=== PATIENT | male | born 1960 | race Caucasian/White ===

== ENCOUNTER 2022-08-25 14:27 | Inpatient (IN) ==
[2022-08-25 14:48] LABS: POC Calcium, Ionized 1.01 (1.16-1.32); POC Creatinine 1.5 (0.6-1.2); POC Potassium 4.8 (3.3-5.1)
[2022-08-25] MEDS ORDERED: 0.9 % SODIUM CHLORIDE 1,000 ML IV ONE (14:54)
[2022-08-25] MEDS ORDERED: LACTATED RINGERS 1,000 ML IV ONE (14:55)
[2022-08-25] MEDS ORDERED: morphine 4 MG/ML VIAL IV ONE (14:59)
[2022-08-25] MEDS ORDERED: INSULIN REGULAR IV SCH (15:00)
[2022-08-25] MEDS ORDERED: HUMAN IV SCH (15:00)
[2022-08-25] MEDS ORDERED: SODIUM CHLORIDE 0.9% IV SCH (15:00)
[2022-08-25] MEDS ORDERED: NACL 0.9% W/KCL 20MEQ 1,000 ML IV SCH (15:00)
[2022-08-25 15:09] LABS: Basophils # (Auto) 0.02 K/mcL (0.00-0.30); Basophils % (Auto) 0.1 % (0.0-2.0); Eosinophils # (Auto) 0 K/mcL (0.00-0.70); Eosinophils % (Auto) 0 % (0.0-7.0); Hematocrit 26.1 % (40.1-51.0); Hemoglobin 8.4 g/dL (13.7-17.5); Lymphocytes # (Auto) 0.41 K/mcL (1.50-4.80); Lymphocytes % (Auto) 2.4 % (15.5-49.0); Mean Cell Volume 91.9 fL (80.0-100.0); Mean Corpuscular HGB Conc 32.2 g/dL (31.0-36.0); Mean Platelet Volume 10.5 fL (8.8-12.5); Monocytes # (Auto) 1.25 K/mcL (0.10-0.90); Monocytes % (Auto) 7.4 % (1.0-12.0); Neutrophils % (Auto) 89.7 % (38.0-78.0); Platelet Count 201 K/mcL (140-440); RBC 2.84 M/mcL (4.63-6.08); Red Cell Distribution Width 12.4 % (11.5-14.5); WBC 16.9 K/mcL (4.5-11.0)
[2022-08-25] MEDS ORDERED: INSULIN REGULAR, HUMAN 50 UNIT in 0.9 % SODIUM CHLORIDE 99.5 ML IV SCH (15:15)
[2022-08-25 15:27] LABS: Creatine Kinase 1619 U/L (24-195)
[2022-08-25] MEDS ORDERED: 0.9 % SODIUM CHLORIDE 250 ML IV SCH (15:30)
--- NOTE | 2022-08-25 15:49 | XRay Report ---
CLINICAL INFORMATION: fall mid thigh pain COMPARISON: None. FINDINGS: Severely comminuted intertrochanteric fracture of the left hip appreciated. There is moderate associated coxa vera angulation and moderate displacement of both the lesser and greater trochanteric fragments. Mild degenerative change seen in the left hip. There is severe degenerative change in the left patellofemoral and tibiofemoral joint. Soft tissue swelling over the fracture site. IMPRESSION: Severely comminuted intertrochanteric fracture left hip with coxa or angulation and displacement of greater and lesser trochanteric fragments Severe patellofemoral and tibiofemoral degeneration. Mild left hip degeneration Interpreted and Authenticated by: Elroy Little 08/25/22
[2022-08-25 15:51] LABS: POC INR 1.2 (0.8-1.2); POC Pro Time 14.8 (11.9-14.5)
--- NOTE | 2022-08-25 15:52 | XRay Report ---
CLINICAL INFORMATION: Preop COMPARISON: 07/11/2019 TECHNIQUE: Portable FINDINGS: The heart size, mediastinum and pulmonary vessels are unremarkable. The lungs are clear. There are no effusions. The bones and soft tissues are within normal limits. IMPRESSION: Normal chest. Interpreted and Authenticated by: Elroy Little 08/25/22
--- NOTE | 2022-08-25 15:54 | XRay Report ---
CLINICAL INFORMATION: fall COMPARISON: None. FINDINGS: A spiral subtrochanteric fracture of the proximal right femoral diaphysis appreciated. The distal fragment is displaced approximately one half shaft width in a medial direction and a entire shaft in a posterior direction. There is also 40 degrees anterior angulation of the fracture apex. Moderate degenerative change present in the right hip. There is severe degeneration in the patellofemoral and tibiofemoral joint with mild patella jo-ann. Soft tissue swelling seen at the fracture site. IMPRESSION: Moderately displaced angulated spiral fracture of the subtrochanteric proximal right femoral diaphysis. Moderate right hip degeneration Severe patellofemoral and tibiofemoral degeneration Interpreted and Authenticated by: Elroy Little 08/25/22
--- NOTE | 2022-08-25 15:55 | XRay Report ---
CLINICAL INFORMATION: fall mid thigh pain COMPARISON: Abdomen and pelvic CT 08/03/2010 FINDINGS: A moderately displaced angulated spiral fracture of the subtrochanteric right hip appreciated. There is also also a oblique intertrochanteric comminuted fracture of the left hip displacement of the trochanteric fragments Mild left and [id number] right hip degeneration noted. SI joints are normal. IMPRESSION: Bilateral hip fractures as described Interpreted and Authenticated by: Elroy Little 08/25/22
--- NOTE | 2022-08-25 16:13 | Emergency Department Note ---
HPI General Chief complaint: Blood Sugar Problem Stated complaint: Hi Blood Glucose Time Seen by Provider: 08/25/22 14:30 Source: patient and EMS Mode of arrival: EMS Limitations: no limitations History of Present Illness HPI Narrative: Narrative: Patient presents to the emergency department with elevated blood sugars, multiple falls last night and early this morning. Patient reports that his blood sugars dipped causing him to fall he was on the ground since early this morning approximately 9 AM his parents who live next-door came and found him unable to get up off the ground. Patient is complaining of bilateral leg pain. She does have a history of type 1 diabetes he has a continuous glucose monitor he self administers insulin and does not have an insulin pump. He reports up until yesterday he was in his usual state of health there has been no recent infectious symptoms and he reports that he has been compliant with his insulin. He was unable to give him self insulin this morning secondary to his fall. He denies hitting his head and he does not have a headache he is not on any anticoagulation. Related Data Home Medications Medication Instructions Recorded Confirmed aspirin 81 mg tablet,delayed 81 mg PO QDAY 10/23/18 08/26/22 release (Adult Low Dose Aspirin) blood sugar diagnostic (OneTouch #10 ea 10/23/18 01/04/22 Ultra Blue Test Strip) amlodipine 5 mg tablet 5 mg PO QDAY 08/26/22 08/26/22 benazepril 40 mg tablet 40 mg PO QDAY 08/26/22 08/26/22 hydrochlorothiazide 25 mg tablet 25 mg PO QDAY 08/26/22 08/26/22 pravastatin 80 mg tablet 80 mg PO QHS 08/26/22 08/26/22 Previous Rx's Medication Instructions Recorded blood sugar diagnostic (ReliOn #700 ea 01/16/20 Prime Test Strips) insulin degludec 200 unit/mL (3 See Rx Instructions .Route 02/16/22 mL) subcutaneous pen (Tresiba .COMPLEX #9 mL FlexTouch U-200 insulin) pen needle, diabetic 31 gauge x #100 ea 02/16/2205/13" (BD Ultra-Fine Mini Pen Needle) blood-glucose sensor (Dexcom G6 #3 ea 03/15/22 Sensor device) fluoxetine 40 mg capsule 40 mg PO QAM #90 caps 05/25/22 blood-glucose transmitter (Dexcom #1 ea 06/11/22 G6 Transmitter device) insulin lispro 100 unit/mL 1 sliding scale dose subcut .With 06/11/22 subcutaneous solution (Humalog Each Meal #10 mL U-100 Insulin) Allergies Allergy/AdvReac Type Severity Reaction Status Date / Time No Known Drug Allergies Allergy Verified 08/26/22 07:40 Review of Systems ROS ROS Narrative: Narrative: All systems ED: reviewed and negative except as stated. 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) Encounter for Health Maintenance Examination in Adult (Acute) Diabetic eye exam (Chronic 11/16/18) Preventative health care (Chronic) Hx of colonoscopy (Chronic 01/24/18) Hx of stroke without residual deficits (Chronic) Hepatitis C (Chronic) Situational depression (Chronic) Chronic kidney disease, stage 1 (Chronic) Dyslipidemia (Chronic) Impingement syndrome of right shoulder (Chronic) Tinea unguium (Chronic) Hypoglycemia (Chronic) Dry eye syndrome (Chronic) Cataracts, bilateral (Chronic) Depression (Chronic) Cerebrovascular accident (CVA) (Chronic) Arthritis of right knee (Chronic) Type 1 diabetes mellitus (Chronic) Altered mental status (Chronic) Medical History Altered mental status Arthritis of right knee Cataracts, bilateral Cerebrovascular accident (CVA) Chronic kidney disease, stage 1 Depression Diabetic eye exam (11/16/18) Vision Source- mild nonproliferative diabetic retinopathy without edema Dry eye syndrome Dyslipidemia Encounter for long-term (current) use of insulin Hepatitis C HTN (hypertension) Hx of stroke without residual deficits Hyperlipidemia Hypoglycemia Impingement syndrome of right shoulder Major depression Preventative health care Seizure Situational depression Tinea unguium Type 1 diabetes mellitus Type 2 diabetes mellitus with chronic kidney disease Surgical History History of esophagogastroduodenoscopy (EGD) (07/27/16) Hx of colonoscopy (01/24/18) Dr Whittaker - tubular adenoma , adenomatos polp, repeat 3 years No history of previous surgery Family History Other No pertinent family history Social History Smoking Status: Never smoker Alcohol Intake Frequency: does not drink Substance Use: does not use Exam Narrative Narrative: Narrative: Vital signs noted General: Awake. Pale, appears ill HEENT: NCAT PERRL EOMI. No conjunctivitis. Membranes moist. Neck: Supple, trachea midline Cardiovascular: Tachycardic. No murmur. No rubs. No gallops. Respiratory: Tachypneic Gastrointestinal: Soft. No tenderness Musculoskeletal: Bilateral hip and mid femur pain to palpation Skin: Warm. Dry. No rash Neurologic: Alert and oriented x3 moves all extremities equally and fully, speech is fluent face is symmetric General Limitations: no limitations Course Vital Signs Vital signs: Vital Signs Temperature 98.2 F 08/25/22 14:33 Pulse Rate 117 H 08/25/22 14:33 Respiratory Rate 18 08/25/22 14:33 Blood Pressure 143/82 08/25/22 14:33 Pulse Oximetry (%) 100 08/25/22 14:33 Oxygen Delivery Method Room Air 08/25/22 14:33 Temperature 97.2 F 08/26/22 04:01 Pulse Rate 100 H 08/26/22 04:01 Respiratory Rate 15 08/26/22 04:01 Blood Pressure 134/65 08/26/22 04:01 Pulse Oximetry (%) 99 08/26/22 04:01 Oxygen Delivery Method Room Air 08/26/22 04:01 [facility] Narrative Medical decision making narrative: Narrative: Patient presents to the emergency department with hip pain, high blood glucose after a fall. Sounds like patient's falls were due to hypoglycemia and then he had been on the ground unable to get up. Patient does have a deformity in the mid thigh x-ray reveals bilateral hip fractures that are comminuted. Patient also found to have blood glucose in the 600s with a bicarb of 15 and anion gap of 25. Patient's venous blood gas shows a pH is 7.32 his lactate is 10. Patient's white blood cell count was 16.9, his hemoglobin is 8.4 it looks like his baseline is anywhere from 13-14. Patient was ordered 2 L of fluids he started on insulin drip at 0.1 units/kg/h he started on maintenance fluids with potassium, he is ordered 2 units of red blood cells. I did speak with Dr. Rodriguez who has agreed to consult on the patient. Patient is admitted to the hospitalist service he will need medical attention before he is cleared for the operating room. Lab Data 08/26/22 05:27 08/26/22 05:27 Labs: Lab Results 08/25/22 08/25/22 08/25/22 Range/Units 14:40 14:40 14:40 WBC 16.9 H (4.5-11.0) K/mcL RBC 2.84 L (4.63-6.08) M/mcL Hgb 8.4 L (13.7-17.5) g/dL Hct 26.1 L (40.1-51.0) % POC Hct (41-55) MCV 91.9 (80.0-100.0) fL MCH 29.6 (26.0-34.0) pg MCHC 32.2 (31.0-36.0) g/dL RDW 12.4 (11.5-14.5) % Plt Count 201 (140-440) K/mcL MPV 10.5 (8.8-12.5) fL Immature Gran % (Auto) 0.4 (0.0-0.5) % Neut % (Auto) 89.7 H (38.0-78.0) % Lymph % (Auto) 2.4 L (15.5-49.0) % [place] % (Auto) 7.4 (1.0-12.0) % Eos % (Auto) 0 (0.0-7.0) % Baso % (Auto) 0.1 (0.0-2.0) % Lymph # (Auto) 0.41 L (1.50-4.80) K/mcL [place] # (Auto) 1.25 H (0.10-0.90) K/mcL Eos # (Auto) 0 (0.00-0.70) K/mcL Baso # (Auto) 0.02 (0.00-0.30) K/mcL Seg Neutrophils % (38-78) % Band Neutrophils % (0-10) % Lymphocytes % (15-49) % Monocytes % (Manual) (1-12) % Immature Gran # 0.07 H (0.00-0.05) K/mcl Absolute Neutrophils 15.16 H (1.80-8.00) K/mcL Platelet Estimate (Normal) RBC Morphology (Normal) POC PT (11.9-14.5) POC INR (0.8-1.2) POC VBG pH (7.32-7.42) POC VBG pCO2 at Temp (41-51) POC VBG pO2 (25-40) POC VBG HCO3 (24-28) POC VBG Total CO2 (25-29) POC Venous O2 Sat (40-70) POC VBG Base Excess (-2-2) VBG Lactic Acid (0.5-2) POC Sodium (133-145) Sodium (133-145) mmol/L POC Potassium (3.3-5.1) Potassium (3.3-5.1) mmol/L POC Chloride (96-108) Chloride (96-108) mmol/L Carbon Dioxide (22-30) mmol/L POC Total CO2 (22-30) Anion Gap (8.0-16.0) POC Anion Gap (8.0-16.0) POC BUN (6-20) BUN (8-23) mg/dL Creatinine (0.7-1.2) mg/dL POC Creatinine (0.6-1.2) GFR Calculation Glucose (70-105) mg/dL POC Glucose (70-105) Uric Acid (2.5-8.0) mg/dL Calcium (8.6-10.4) mg/dL POC WB Ioniz Calcium (1.16-1.32) Phosphorus (2.5-4.5) mg/dL Magnesium 1.7 (1.6-2.5) mg/dL Total Bilirubin (0.1-1.0) mg/dL Direct Bilirubin (<0.3) mg/dL GGT (8-61) U/L AST (<40) U/L ALT (<40) U/L Alkaline Phosphatase 51 (39-117) U/L Lactate Dehydrogenase (135-225) U/L Total Creatine Kinase 1619 H (24-195) U/L Total Protein (5.9-8.4) gm/dL Albumin (3.2-5.2) gm/dL Globulin (2.2-3.7) gm/dL Albumin/Globulin Ratio (1.0-2.3) Triglycerides (<150) mg/dL Beta-Hydroxybutyrate 0.60 H (<0.27) mmol/L Urine Color Urine Appearance (Clear) Urine pH (5.0-9.0) Ur Specific [place] (1.000-1.035) Urine Protein (Negative) mg/dL Urine Glucose (UA) (Negative) mg/dL Urine Ketones (Negative) mg/dL Urine Occult Blood (Negative) mg/dL Urine Nitrate (Negative) Urine Bilirubin (Negative) mg/dL Urine Urobilinogen mg/dL Ur Leukocyte Esterase (Negative) /uL Urine RBC (0-3) /hpf Urine WBC (0-4) /hpf Ur Squamous Epith Cells (0-4) /hpf Urine Bacteria (0) /hpf Hyaline Casts (0-2) /lph Urine Mucus (None) /hpf Ur Culture Indicated? 08/25/22 08/25/22 08/25/22 Range/Units 14:40 14:44 14:44 WBC (4.5-11.0) K/mcL RBC (4.63-6.08) M/mcL Hgb (13.7-17.5) g/dL Hct (40.1-51.0) % POC Hct 26.0 L (41-55) MCV (80.0-100.0) fL MCH (26.0-34.0) pg MCHC (31.0-36.0) g/dL RDW (11.5-14.5) % Plt Count (140-440) K/mcL MPV (8.8-12.5) fL Immature Gran % (Auto) (0.0-0.5) % Neut % (Auto) (38.0-78.0) % Lymph % (Auto) (15.5-49.0) % [place] % (Auto) (1.0-12.0) % Eos % (Auto) (0.0-7.0) % Baso % (Auto) (0.0-2.0) % Lymph # (Auto) (1.50-4.80) K/mcL [place] # (Auto) (0.10-0.90) K/mcL Eos # (Auto) (0.00-0.70) K/mcL Baso # (Auto) (0.00-0.30) K/mcL Seg Neutrophils % 84 H (38-78) % Band Neutrophils % 8 (0-10) % Lymphocytes % 4 L (15-49) % Monocytes % (Manual) 4 (1-12) % Immature Gran # (0.00-0.05) K/mcl Absolute Neutrophils (1.80-8.00) K/mcL Platelet Estimate Normal (Normal) RBC Morphology Normal (Normal) POC PT (11.9-14.5) POC INR (0.8-1.2) POC VBG pH 7.32 (7.32-7.42) POC VBG pCO2 at Temp 28.7 L (41-51) POC VBG pO2 23 L (25-40) POC VBG HCO3 14.7 L (24-28) POC VBG Total CO2 16.0 L (25-29) POC Venous O2 Sat 36.0 L (40-70) POC VBG Base Excess -11.0 L (-2-2) VBG Lactic Acid 10.8 H* (0.5-2) POC Sodium 127 L (133-145) Sodium (133-145) mmol/L POC Potassium 4.8 (3.3-5.1) Potassium (3.3-5.1) mmol/L POC Chloride 93 L (96-108) Chloride (96-108) mmol/L Carbon Dioxide (22-30) mmol/L POC Total CO2 15.0 L (22-30) Anion Gap (8.0-16.0) POC Anion Gap 25.0 H (8.0-16.0) POC BUN 22 H (6-20) BUN (8-23) mg/dL Creatinine (0.7-1.2) mg/dL POC Creatinine 1.5 H (0.6-1.2) GFR Calculation Glucose (70-105) mg/dL POC Glucose 623 H* (70-105) Uric Acid (2.5-8.0) mg/dL Calcium (8.6-10.4) mg/dL POC WB Ioniz Calcium 1.01 L (1.16-1.32) Phosphorus (2.5-4.5) mg/dL Magnesium (1.6-2.5) mg/dL Total Bilirubin (0.1-1.0) mg/dL Direct Bilirubin (<0.3) mg/dL GGT (8-61) U/L AST (<40) U/L ALT (<40) U/L Alkaline Phosphatase (39-117) U/L Lactate Dehydrogenase (135-225) U/L Total Creatine Kinase (24-195) U/L Total Protein (5.9-8.4) gm/dL Albumin (3.2-5.2) gm/dL Globulin (2.2-3.7) gm/dL Albumin/Globulin Ratio (1.0-2.3) Triglycerides (<150) mg/dL Beta-Hydroxybutyrate (<0.27) mmol/L Urine Color Urine Appearance (Clear) Urine pH (5.0-9.0) Ur Specific [place] (1.000-1.035) Urine Protein (Negative) mg/dL Urine Glucose (UA) (Negative) mg/dL Urine Ketones (Negative) mg/dL Urine Occult Blood (Negative) mg/dL Urine Nitrate (Negative) Urine Bilirubin (Negative) mg/dL Urine Urobilinogen mg/dL Ur Leukocyte Esterase (Negative) /uL Urine RBC (0-3) /hpf Urine WBC (0-4) /hpf Ur Squamous Epith Cells (0-4) /hpf Urine Bacteria (0) /hpf Hyaline Casts (0-2) /lph Urine Mucus (None) /hpf Ur Culture Indicated? 08/25/22 08/25/22 08/25/22 Range/Units 15:49 16:30 16:33 WBC (4.5-11.0) K/mcL RBC (4.63-6.08) M/mcL Hgb (13.7-17.5) g/dL Hct (40.1-51.0) % POC Hct (41-55) MCV (80.0-100.0) fL MCH (26.0-34.0) pg MCHC (31.0-36.0) g/dL RDW (11.5-14.5) % Plt Count (140-440) K/mcL MPV (8.8-12.5) fL Immature Gran % (Auto) (0.0-0.5) % Neut % (Auto) (38.0-78.0) % Lymph % (Auto) (15.5-49.0) % [place] % (Auto) (1.0-12.0) % Eos % (Auto) (0.0-7.0) % Baso % (Auto) (0.0-2.0) % Lymph # (Auto) (1.50-4.80) K/mcL [place] # (Auto) (0.10-0.90) K/mcL Eos # (Auto) (0.00-0.70) K/mcL Baso # (Auto) (0.00-0.30) K/mcL Seg Neutrophils % (38-78) % Band Neutrophils % (0-10) % Lymphocytes % (15-49) % Monocytes % (Manual) (1-12) % Immature Gran # (0.00-0.05) K/mcl Absolute Neutrophils (1.80-8.00) K/mcL Platelet Estimate (Normal) RBC Morphology (Normal) POC PT 14.8 H (11.9-14.5) POC INR 1.2 (0.8-1.2) POC VBG pH 7.35 (7.32-7.42) POC VBG pCO2 at Temp 31.3 L (41-51) POC VBG pO2 28 (25-40) POC VBG HCO3 17.4 L (24-28) POC VBG Total CO2 18.0 L (25-29) POC Venous O2 Sat 50.0 (40-70) POC VBG Base Excess -8.0 L (-2-2) VBG Lactic Acid 7.4 H* (0.5-2) POC Sodium (133-145) Sodium 126 L (133-145) mmol/L POC Potassium (3.3-5.1) Potassium 4.1 (3.3-5.1) mmol/L POC Chloride (96-108) Chloride 93 L (96-108) mmol/L Carbon Dioxide 18 L (22-30) mmol/L POC Total CO2 (22-30) Anion Gap 15.0 (8.0-16.0) POC Anion Gap (8.0-16.0) POC BUN (6-20) BUN 24 H (8-23) mg/dL Creatinine 1.4 H (0.7-1.2) mg/dL POC Creatinine (0.6-1.2) GFR Calculation 53 Glucose 519 H* (70-105) mg/dL POC Glucose (70-105) Uric Acid 6.7 (2.5-8.0) mg/dL Calcium 7.7 L (8.6-10.4) mg/dL POC WB Ioniz Calcium (1.16-1.32) Phosphorus 2.1 L (2.5-4.5) mg/dL Magnesium 1.6 (1.6-2.5) mg/dL Total Bilirubin 0.8 (0.1-1.0) mg/dL Direct Bilirubin 0.2 (<0.3) mg/dL GGT 8 (8-61) U/L AST 45 H (<40) U/L ALT 19 (<40) U/L Alkaline Phosphatase 50 (39-117) U/L Lactate Dehydrogenase 243 H (135-225) U/L Total Creatine Kinase (24-195) U/L Total Protein 5.3 L (5.9-8.4) gm/dL Albumin 3.0 L (3.2-5.2) gm/dL Globulin 2.3 (2.2-3.7) gm/dL Albumin/Globulin Ratio 1.3 (1.0-2.3) Triglycerides 60 (<150) mg/dL Beta-Hydroxybutyrate (<0.27) mmol/L Urine Color Urine Appearance (Clear) Urine pH (5.0-9.0) Ur Specific [place] (1.000-1.035) Urine Protein (Negative) mg/dL Urine Glucose (UA) (Negative) mg/dL Urine Ketones (Negative) mg/dL Urine Occult Blood (Negative) mg/dL Urine Nitrate (Negative) Urine Bilirubin (Negative) mg/dL Urine Urobilinogen mg/dL Ur Leukocyte Esterase (Negative) /uL Urine RBC (0-3) /hpf Urine WBC (0-4) /hpf Ur Squamous Epith Cells (0-4) /hpf Urine Bacteria (0) /hpf Hyaline Casts (0-2) /lph Urine Mucus (None) /hpf Ur Culture Indicated? 08/25/22 Range/Units 18:00 WBC (4.5-11.0) K/mcL RBC (4.63-6.08) M/mcL Hgb (13.7-17.5) g/dL Hct (40.1-51.0) % POC Hct (41-55) MCV (80.0-100.0) fL MCH (26.0-34.0) pg MCHC (31.0-36.0) g/dL RDW (11.5-14.5) % Plt Count (140-440) K/mcL MPV (8.8-12.5) fL Immature Gran % (Auto) (0.0-0.5) % Neut % (Auto) (38.0-78.0) % Lymph % (Auto) (15.5-49.0) % [place] % (Auto) (1.0-12.0) % Eos % (Auto) (0.0-7.0) % Baso % (Auto) (0.0-2.0) % Lymph # (Auto) (1.50-4.80) K/mcL [place] # (Auto) (0.10-0.90) K/mcL Eos # (Auto) (0.00-0.70) K/mcL Baso # (Auto) (0.00-0.30) K/mcL Seg Neutrophils % (38-78) % Band Neutrophils % (0-10) % Lymphocytes % (15-49) % Monocytes % (Manual) (1-12) % Immature Gran # (0.00-0.05) K/mcl Absolute Neutrophils (1.80-8.00) K/mcL Platelet Estimate (Normal) RBC Morphology (Normal) POC PT (11.9-14.5) POC INR (0.8-1.2) POC VBG pH (7.32-7.42) POC VBG pCO2 at Temp (41-51) POC VBG pO2 (25-40) POC VBG HCO3 (24-28) POC VBG Total CO2 (25-29) POC Venous O2 Sat (40-70) POC VBG Base Excess (-2-2) VBG Lactic Acid (0.5-2) POC Sodium (133-145) Sodium (133-145) mmol/L POC Potassium (3.3-5.1) Potassium (3.3-5.1) mmol/L POC Chloride (96-108) Chloride (96-108) mmol/L Carbon Dioxide (22-30) mmol/L POC Total CO2 (22-30) Anion Gap (8.0-16.0) POC Anion Gap (8.0-16.0) POC BUN (6-20) BUN (8-23) mg/dL Creatinine (0.7-1.2) mg/dL POC Creatinine (0.6-1.2) GFR Calculation Glucose (70-105) mg/dL POC Glucose (70-105) Uric Acid (2.5-8.0) mg/dL Calcium (8.6-10.4) mg/dL POC WB Ioniz Calcium (1.16-1.32) Phosphorus (2.5-4.5) mg/dL Magnesium (1.6-2.5) mg/dL Total Bilirubin (0.1-1.0) mg/dL Direct Bilirubin (<0.3) mg/dL GGT (8-61) U/L AST (<40) U/L ALT (<40) U/L Alkaline Phosphatase (39-117) U/L Lactate Dehydrogenase (135-225) U/L Total Creatine Kinase (24-195) U/L Total Protein (5.9-8.4) gm/dL Albumin (3.2-5.2) gm/dL Globulin (2.2-3.7) gm/dL Albumin/Globulin Ratio (1.0-2.3) Triglycerides (<150) mg/dL Beta-Hydroxybutyrate (<0.27) mmol/L Urine Color Yellow Urine Appearance Clear (Clear) Urine pH 5.0 (5.0-9.0) Ur Specific [place] 1.023 (1.000-1.035) Urine Protein Negative (Negative) mg/dL Urine Glucose (UA) >=500 A (Negative) mg/dL Urine Ketones 20 A (Negative) mg/dL Urine Occult Blood 0.20 (Negative) mg/dL Urine Nitrate Negative (Negative) Urine Bilirubin Negative (Negative) mg/dL Urine Urobilinogen Negative mg/dL Ur Leukocyte Esterase Negative (Negative) /uL Urine RBC 1 (0-3) /hpf Urine WBC 2 (0-4) /hpf Ur Squamous Epith Cells < 1 (0-4) /hpf Urine Bacteria None (0) /hpf Hyaline Casts 8 H (0-2) /lph Urine Mucus Few A (None) /hpf Ur Culture Indicated? No CC TIME Critical Care Time Critical Care Time: Yes Total Critical Care Time: 35 Attestation: Total critical care time of 35min including performance of history and physical exam, review of results, re-examinations, time spent documenting, work order sorting clerk, review of old records, discussions with patient and family, discussions with packaging sales consultant(s), discussion with admitting physician, completion of admission/transfer paperwork. This does not include time for any separately documented procedures. Discharge Plan Patient/Caregiver Discharge Instructions Pt seen by PAYROLL CLERK/PA only: No Clinical Impression: Bilateral closed hip fractures, DKA, type 1, Acute blood loss anemia Patient Disposition: Xfer As Inpt ([facility]) Prescriptions: No Action (DME) ReliOn Prime Test Strips Strip See Dose Instructions .ROUTE .MEDSUPPLY Qty: 700 5RF Rx Instructions: Use to check blood sugar 8 times daily (DME) pen needle, diabetic [BD Ultra-Fine Mini Pen Needle] 31 gauge x 3/16" needle See Dose Instructions .ROUTE .MEDSUPPLY Qty: 100 4RF Rx Instructions: Use to inject insulin daily insulin degludec [Tresiba FlexTouch U-200] 200 unit/mL (3 mL) insulin pen See Rx Instructions .ROUTE .COMPLEX Qty: 9 4RF Dose Instruction: INJECT 32 UNITS UNDER THE SKIN ONCE DAILY Rx Instructions: INJECT 24 UNITS UNDER THE SKIN ONCE DAILY (DME) Dexcom G6 Sensor Device See Rx Instructions .Route Qty: 3 12RF Rx Instructions: As directed fluoxetine 40 mg capsule 40 mg PO QAM Qty: 90 4RF insulin lispro [Humalog U-100 Insulin] 100 unit/mL solution 1 sliding scale dose subcut .With Each Meal MDD 50units Qty: 10 5RF Rx Instructions: Medium sliding scale (DME) Dexcom G6 Transmitter Device See Rx Instructions .Route Qty: 1 0RF Rx Instructions: As directed aspirin [Adult Low Dose Aspirin] 81 mg tablet,delayed release (DR/EC) 81 mg PO QDAY (DME) OneTouch Ultra Blue Test Strip strip See Dose Instructions .ROUTE .MEDSUPPLY Qty: 10 Rx Instructions: As directed amlodipine 5 mg tablet 5 mg PO QDAY benazepril 40 mg tablet 40 mg PO QDAY hydrochlorothiazide 25 mg tablet 25 mg PO QDAY pravastatin 80 mg tablet 80 mg PO QHS Discharge Date/Time: 08/25/22 18:16
[2022-08-25 16:26] LABS: Alkaline Phosphatase 51 U/L (39-117)
[2022-08-25] MEDS: HYDROmorphone 0.5 MG/0.5 ML SYRINGE IV PRN ×2 (16:30→17:30)
--- NOTE | 2022-08-25 17:05 | Internal Med History&Physical ---
HPI History of Present Illness Patient information: Note initiated : 08/25/22 at 4:53 pm Service Date, if different from initiated Date: [] Patient: Gagan Olivas 61 y/o M admitted on . Chief Complaint: [] History of present illness: Mr. Olivas is a 61 year old M Presents the ED after fall and has been on the floor all night. Patient has diabetes type 1 and administer his own insulin. He has a Dexcom that read low last night but does not have an actual number. He says his blood sugars get low several times a week. He believes that around the time his blood glucose dropped last night is when he fell. He then got up and walked over to another part of the floor and lay down again. Then it sounds like in the patient access registrar hours he got back up and fell again. He never called any family members, remaining on the floor until his mom came in at around 1230 and found him on the floor. Patient complained of bilateral hip pain. Patient states he was in his normal state of health until last night. Patient states he is takes 16 units of long-acting insulin each morning and then short acting with each meal. Noted to have bilateral hip pain. No LOC or hitting his head. Today's blood glucose read as high. In the ED patient found to have bilateral hip fractures for which Dr. Rodriguez was contacted. Patient also found to be in DKA. Patient started on IV fluids and insulin drip. Also found to be quite anemic 8.4 with a baseline hemoglobin ~14.0. Likely secondary to bleeding from bilateral hip fractures. 2 units of blood ordered in ED. Leukocytosis noted but patient afebrile. Chest x-ray unremarkable. UA pending. CPK was noted to be 1619 and lactate was elevated at 10.8 with repeat after 1.3L's showing 7.4 Also found to have acute kidney injury with a creatinine of 1.5 on [id number]. Vital signs showed tachycardia in the 110s with remaining vital signs stable. He did have some nausea when EMS was calling about. But denied any headaches fever chills chest pain shortness of breath Review of Systems: Pertinent positive as above. Denies headache/fever/chills/vomiting/chest or abdominal pain/cough/dyspnea/diarrhea. Remaining 10 point review system reviewed negative PHYSICAL EXAM General: Alert, Awake, No acute Distress, obese Eyes/N/T: EOMI, no scleral icterus, PERRL,dry MM Head/Neck: neck supple, full ROM, normocephalic atraumatic CV: Mildly tacky but regular, No murmurs, normal s1/s2 Pulm: Clear b/l, no wheezing/rhonchi/rales, no respiratory distress Abd: soft, nontender, +BS x4 Ext: no clubbing/cyanosis, trace b/l LE edema, nontender Neuro: Alert, CN 2-12 grossly intact, no focal deficits, , sensations intact b/l upper/lower Psychiatric: Skin: warm/dry, normal color PFSH PFSH All Active Problems Bilateral closed hip fractures (Acute) DKA, type 1 (Acute) Acute blood loss anemia (Acute) Hypoglycemia due to insulin (Acute) Initial Medicare annual wellness visit (Acute) Major depression (Chronic) Seizure (Chronic) Hyperlipidemia (Chronic) Encounter for long-term (current) use of insulin (Chronic) HTN (hypertension) (Chronic) 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) Encounter for Health Maintenance Examination in Adult (Acute) Diabetic eye exam (Chronic 11/16/18) Preventative health care (Chronic) Hx of colonoscopy (Chronic 01/24/18) Hx of stroke without residual deficits (Chronic) Hepatitis C (Chronic) Situational depression (Chronic) Chronic kidney disease, stage 1 (Chronic) Dyslipidemia (Chronic) Impingement syndrome of right shoulder (Chronic) Tinea unguium (Chronic) Hypoglycemia (Chronic) Dry eye syndrome (Chronic) Cataracts, bilateral (Chronic) Depression (Chronic) Cerebrovascular accident (CVA) (Chronic) Arthritis of right knee (Chronic) Type 1 diabetes mellitus (Chronic) Altered mental status (Chronic) Medical History Altered mental status Arthritis of right knee Cataracts, bilateral Cerebrovascular accident (CVA) Chronic kidney disease, stage 1 Depression Diabetic eye exam (11/16/18) Vision Source- mild nonproliferative diabetic retinopathy without edema Dry eye syndrome Dyslipidemia Encounter for long-term (current) use of insulin Hepatitis C HTN (hypertension) Hx of stroke without residual deficits Hyperlipidemia Hypoglycemia Impingement syndrome of right shoulder Major depression Preventative health care Seizure Situational depression Tinea unguium Type 1 diabetes mellitus Type 2 diabetes mellitus with chronic kidney disease Surgical History History of esophagogastroduodenoscopy (EGD) (07/27/16) Hx of colonoscopy (01/24/18) Dr Whittaker - tubular adenoma , adenomatos polp, repeat 3 years No history of previous surgery Family History Other No pertinent family history Social History marital status: single occupational status: employed and disabled occupation: [place] smoking status: Never smoker alcohol intake frequency: does not drink substance use type: does not use seatbelt use: always MEDS/ALLERGIES Home Medications and Allergies Home Medications Medication Instructions Recorded Confirmed Type aspirin 81 mg tablet,delayed 81 mg PO QDAY 10/23/18 08/25/22 History release (Adult Low Dose Aspirin) blood sugar diagnostic (OneTouch #10 ea 10/23/18 01/04/22 History Ultra Blue Test Strip) blood sugar diagnostic (ReliOn #700 ea 01/16/20 01/04/22 Rx Prime Test Strips) insulin degludec 200 unit/mL (3 See Rx Instructions .Route 02/16/22 08/25/22 Rx mL) subcutaneous pen (Tresiba .COMPLEX #9 mL FlexTouch U-200 insulin) pen needle, diabetic 31 gauge x #100 ea 02/16/22 Rx 3/16" (BD Ultra-Fine Mini Pen Needle) blood-glucose sensor (Dexcom G6 #3 ea 03/15/22 Rx Sensor device) fluoxetine 40 mg capsule 40 mg PO QAM #90 caps 05/25/22 08/25/22 Rx blood-glucose transmitter (Dexcom #1 ea 06/11/22 Rx G6 Transmitter device) insulin lispro 100 unit/mL 1 sliding scale dose subcut .With 06/11/22 08/25/22 Rx subcutaneous solution (Humalog Each Meal #10 mL U-100 Insulin) amlodipine 5 mg tablet See Rx Instructions .Route 08/18/22 08/25/22 Rx .COMPLEX #90 tabs hydrochlorothiazide 25 mg tablet See Rx Instructions .Route 08/18/22 08/25/22 Rx .COMPLEX #90 tabs pravastatin 80 mg tablet See Rx Instructions .Route 08/18/22 08/25/22 Rx .COMPLEX #90 tabs benazepril 40 mg tablet See Rx Instructions .Route 08/20/22 08/25/22 Rx .COMPLEX #90 tabs Allergies Allergy/AdvReac Type Severity Reaction Status Date / Time No Known Drug Allergies Allergy Verified 08/25/22 14:36 EXAM Constitutional Vitals: Temp Pulse Resp BP Pulse Ox O2 Del Method 98.2 F 115 H 20 123/79 94 Room Air 08/25/22 14:33 08/25/22 16:31 08/25/22 16:31 08/25/22 16:31 08/25/22 16:31 08/25/22 14:33 DATA Data Completed and Pending Labs: Labs from last 24 hours 08/25/22 08/25/22 08/25/22 16:33 16:30 15:49 WBC RBC Hgb Hct POC Hct MCV MCH MCHC RDW Plt Count MPV Immature Gran % (Auto) Neut % (Auto) Lymph % (Auto) [place] % (Auto) Eos % (Auto) Baso % (Auto) Lymph # (Auto) [place] # (Auto) Eos # (Auto) Baso # (Auto) Immature Gran # Absolute Neutrophils POC PT 14.8 H POC INR 1.2 POC VBG pH 7.35 POC VBG pCO2 at Temp 31.3 L POC VBG pO2 28 POC VBG HCO3 17.4 L POC VBG Total CO2 18.0 L POC Venous O2 Sat 50.0 POC VBG Base Excess -8.0 L VBG Lactic Acid 7.4 H* POC Sodium Sodium Pending POC Potassium Potassium Pending POC Chloride Chloride Pending Carbon Dioxide Pending POC Total CO2 Anion Gap Pending POC Anion Gap POC BUN BUN Pending Creatinine Pending POC Creatinine GFR Calculation Pending Glucose Pending POC Glucose Uric Acid Pending Calcium Pending POC WB Ioniz Calcium Phosphorus Pending Magnesium Pending Total Bilirubin Pending Direct Bilirubin Pending GGT Pending AST Pending ALT Pending Alkaline Phosphatase Pending Lactate Dehydrogenase Pending Total Creatine Kinase Total Protein Pending Albumin Pending Globulin Pending Albumin/Globulin Ratio Pending Triglycerides Pending Beta-Hydroxybutyrate 08/25/22 08/25/22 08/25/22 14:44 14:44 14:40 WBC RBC Hgb Hct POC Hct 26.0 L MCV MCH MCHC RDW Plt Count MPV Immature Gran % (Auto) Neut % (Auto) Lymph % (Auto) [place] % (Auto) Eos % (Auto) Baso % (Auto) Lymph # (Auto) [place] # (Auto) Eos # (Auto) Baso # (Auto) Immature Gran # Absolute Neutrophils POC PT POC INR POC VBG pH 7.32 POC VBG pCO2 at Temp 28.7 L POC VBG pO2 23 L POC VBG HCO3 14.7 L POC VBG Total CO2 16.0 L POC Venous O2 Sat 36.0 L POC VBG Base Excess -11.0 L VBG Lactic Acid 10.8 H* POC Sodium 127 L Sodium POC Potassium 4.8 Potassium POC Chloride 93 L Chloride Carbon Dioxide POC Total CO2 15.0 L Anion Gap POC Anion Gap 25.0 H POC BUN 22 H BUN Creatinine POC Creatinine 1.5 H GFR Calculation Glucose POC Glucose 623 H* Uric Acid Calcium POC WB Ioniz Calcium 1.01 L Phosphorus Magnesium 1.7 Total Bilirubin Direct Bilirubin GGT AST ALT Alkaline Phosphatase 51 Lactate Dehydrogenase Total Creatine Kinase Total Protein Albumin Globulin Albumin/Globulin Ratio Triglycerides Beta-Hydroxybutyrate 08/25/22 08/25/22 14:40 14:40 WBC 16.9 H RBC 2.84 L Hgb 8.4 L Hct 26.1 L POC Hct MCV 91.9 MCH 29.6 MCHC 32.2 RDW 12.4 Plt Count 201 MPV 10.5 Immature Gran % (Auto) 0.4 Neut % (Auto) 89.7 H Lymph % (Auto) 2.4 L [place] % (Auto) 7.4 Eos % (Auto) 0 Baso % (Auto) 0.1 Lymph # (Auto) 0.41 L [place] # (Auto) 1.25 H Eos # (Auto) 0 Baso # (Auto) 0.02 Immature Gran # 0.07 H Absolute Neutrophils 15.16 H POC PT POC INR POC VBG pH POC VBG pCO2 at Temp POC VBG pO2 POC VBG HCO3 POC VBG Total CO2 POC Venous O2 Sat POC VBG Base Excess VBG Lactic Acid POC Sodium Sodium POC Potassium Potassium POC Chloride Chloride Carbon Dioxide POC Total CO2 Anion Gap POC Anion Gap POC BUN BUN Creatinine POC Creatinine GFR Calculation Glucose POC Glucose Uric Acid Calcium POC WB Ioniz Calcium Phosphorus Magnesium Total Bilirubin Direct Bilirubin GGT AST ALT Alkaline Phosphatase Lactate Dehydrogenase Total Creatine Kinase 1619 H Total Protein Albumin Globulin Albumin/Globulin Ratio Triglycerides Beta-Hydroxybutyrate 0.60 H A/P Narrative A/P Narrative: A: *DKA (h/o DM1): -pt states he gets low BG several times per week *AG Met-Acidosis with Severe lactic acidosis: 2/2 above *Fall: 2/2 suspected hypoglycemic event *b/l Hip Fxs: 2/2 above *Rhabdomyolysis: 2/2 above *DEMARIO on CKD II: 2/2 above *Acute anemia: Likely blood loss from bilateral hip fracture site hemorrhage *Leukocytosis: Likely reactive, monitor. Patient afebrile, manual differential pending *h/o CVA: mild residual vision impairment, no focal weakness *Depression: *HTN: *Obesity: BMI 30 * P: -Insulin drip DKA protocol -IVF -Monitor H&H -Trend renal function/monitor UOP -Monitor electrolytes and replace -f/u cpk and lacate -Dr. Rodriguez for orthopedic surgery -Continue home Norvasc, hold ACEI/HCTZ for demario and volume depletion -cont statin, hold aspirin preop -ua and man diff pending -Home medication reconciliation -PT/OT -CM for placement need -ppx: SCD now and follow-up H&H, post-op per ortho Time Spent With Patient Time: Total time spent is greater than 50% in coordination of care (as documented) at patient's floor/unit and/or counseling patient: Critical Care Time: Yes Total Critical Care Time: 70
[2022-08-25 17:36] LABS: ALT/SGPT 19 U/L (<40); AST/SGOT 45 U/L (<40); Albumin/Globulin Ratio 1.3 (1.0-2.3); Alkaline Phosphatase 50 U/L (39-117); Bilirubin,Direct 0.2 mg/dL (<0.3); Bilirubin,Total 0.8 mg/dL (0.1-1.0); Blood Urea Nitrogen 24 mg/dL (8-23); Calcium 7.7 mg/dL (8.6-10.4); Carbon Dioxide 18 mmol/L (22-30); Chloride 93 mmol/L (96-108); Globulin 2.3 gm/dL (2.2-3.7); Glomerular Filtration Rate 53; Glucose 519 mg/dL (70-105); Lactate Dehydrogenase 243 U/L (135-225); Phosphorous 2.1 mg/dL (2.5-4.5); Triglycerides 60 mg/dL (<150); Uric Acid 6.7 mg/dL (2.5-8.0)
--- NOTE | 2022-08-25 18:18 | Orthopedic History & Physical ---
HPI History of Present Illness Patient information: Note initiated : 08/25/22 at 6:12 pm Service Date, if different from initiated Date: [] Patient: Gagan Olivas 61 y/o M admitted on . Chief Complaint: [bilat hip pain s/p falls ] Chief complaint: bilat hip pain History of present illness: Mr. Olivas is a 61 year old male with multiple co-morbidities including DM 1, and Hepatitis C who presents to the emergency department with elevated blood sugars, multiple falls last night and early this morning. Patient reports that his blood sugars dipped causing him to fall he was on the ground since early this morning approximately 9 AM his parents who live next-door came and found him unable to get up off the ground. Patient is complaining of bilateral leg pain. He does have a history of type 1 diabetes he has a continuous glucose monitor he self administers insulin and does not have an insulin pump. He reports up until yesterday he was in his usual state of health there has been no recent infectious symptoms and he reports that he has been compliant with his insulin. He was unable to give him self insulin this morning secondary to his fall. He denies hitting his head and he does not have a headache he is not on any anticoagulation. Lab work is notable for WBC 16.9 Hgb 8.4 Hct 26.1 Lactic acid 7.4 Glucose 519. His liver function transaminases are slightly elevated with AST 45 U/L albumin 3.0 gm and pro- time is 14.8 Imaging obtained at the ED reveals bilateral intertrochanteric hip fractures and ortho service was consulted for treatment options and patient will be admitted to address his DKA, anemia and renal issues. 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) Encounter for Health Maintenance Examination in Adult (Acute) Diabetic eye exam (Chronic 11/16/18) Preventative health care (Chronic) Hx of colonoscopy (Chronic 01/24/18) Hx of stroke without residual deficits (Chronic) Hepatitis C (Chronic) Situational depression (Chronic) Chronic kidney disease, stage 1 (Chronic) Dyslipidemia (Chronic) Impingement syndrome of right shoulder (Chronic) Tinea unguium (Chronic) Hypoglycemia (Chronic) Dry eye syndrome (Chronic) Cataracts, bilateral (Chronic) Depression (Chronic) Cerebrovascular accident (CVA) (Chronic) Arthritis of right knee (Chronic) Type 1 diabetes mellitus (Chronic) Altered mental status (Chronic) Medical History Altered mental status Arthritis of right knee Cataracts, bilateral Cerebrovascular accident (CVA) Chronic kidney disease, stage 1 Depression Diabetic eye exam (11/16/18) Vision Source- mild nonproliferative diabetic retinopathy without edema Dry eye syndrome Dyslipidemia Encounter for long-term (current) use of insulin Hepatitis C HTN (hypertension) Hx of stroke without residual deficits Hyperlipidemia Hypoglycemia Impingement syndrome of right shoulder Major depression Preventative health care Seizure Situational depression Tinea unguium Type 1 diabetes mellitus Type 2 diabetes mellitus with chronic kidney disease Surgical History History of esophagogastroduodenoscopy (EGD) (07/27/16) Hx of colonoscopy (01/24/18) Dr Whittaker - tubular adenoma , adenomatos polp, repeat 3 years No history of previous surgery Family History Other No pertinent family history Social History marital status: single occupational status: employed and disabled occupation: [employer] smoking status: Never smoker alcohol intake frequency: does not drink substance use type: does not use seatbelt use: always MEDS/ALLERGIES Home Medications and Allergies Home Medications Medication Instructions Recorded Confirmed Type aspirin 81 mg tablet,delayed 81 mg PO QDAY 10/23/18 08/25/22 History release (Adult Low Dose Aspirin) blood sugar diagnostic (OneTouch #10 ea 10/23/18 01/04/22 History Ultra Blue Test Strip) blood sugar diagnostic (ReliOn #700 ea 01/16/20 01/04/22 Rx Prime Test Strips) insulin degludec 200 unit/mL (3 See Rx Instructions .Route 02/16/22 08/25/22 Rx mL) subcutaneous pen (Tresiba .COMPLEX #9 mL FlexTouch U-200 insulin) pen needle, diabetic 31 gauge x #100 ea 02/16/22 Rx 3/16" (BD Ultra-Fine Mini Pen Needle) blood-glucose sensor (Dexcom G6 #3 ea 03/15/22 Rx Sensor device) fluoxetine 40 mg capsule 40 mg PO QAM #90 caps 05/25/22 08/25/22 Rx blood-glucose transmitter (Dexcom #1 ea 06/11/22 Rx G6 Transmitter device) insulin lispro 100 unit/mL 1 sliding scale dose subcut .With 06/11/22 08/25/22 Rx subcutaneous solution (Humalog Each Meal #10 mL U-100 Insulin) amlodipine 5 mg tablet See Rx Instructions .Route 08/18/22 08/25/22 Rx .COMPLEX #90 tabs hydrochlorothiazide 25 mg tablet See Rx Instructions .Route 08/18/22 08/25/22 Rx .COMPLEX #90 tabs pravastatin 80 mg tablet See Rx Instructions .Route 08/18/22 08/25/22 Rx .COMPLEX #90 tabs benazepril 40 mg tablet See Rx Instructions .Route 08/20/22 08/25/22 Rx .COMPLEX #90 tabs Allergies Allergy/AdvReac Type Severity Reaction Status Date / Time No Known Drug Allergies Allergy Verified 08/25/22 14:36 Physical Examination Narrative Narrative: Narrative: Results Labs 08/25/22 14:40 08/25/22 16:30 Labs: Abnormal lab results 08/25/22 08/25/22 08/25/22 Range/Units 14:40 14:40 14:44 WBC 16.9 H (4.5-11.0) K/mcL RBC 2.84 L (4.63-6.08) M/mcL Hgb 8.4 L (13.7-17.5) g/dL Hct 26.1 L (40.1-51.0) % POC Hct (41-55) Neut % (Auto) 89.7 H (38.0-78.0) % Lymph % (Auto) 2.4 L (15.5-49.0) % Lymph # (Auto) 0.41 L (1.50-4.80) K/mcL [place] # (Auto) 1.25 H (0.10-0.90) K/mcL Immature Gran # 0.07 H (0.00-0.05) K/mcl Absolute Neutrophils 15.16 H (1.80-8.00) K/mcL POC PT (11.9-14.5) POC VBG pCO2 at Temp 28.7 L (41-51) POC VBG pO2 23 L (25-40) POC VBG HCO3 14.7 L (24-28) POC VBG Total CO2 16.0 L (25-29) POC Venous O2 Sat 36.0 L (40-70) POC VBG Base Excess -11.0 L (-2-2) VBG Lactic Acid 10.8 H* (0.5-2) POC Sodium (133-145) Sodium (133-145) mmol/L POC Chloride (96-108) Chloride (96-108) mmol/L Carbon Dioxide (22-30) mmol/L POC Total CO2 (22-30) POC Anion Gap (8.0-16.0) POC BUN (6-20) BUN (8-23) mg/dL Creatinine (0.7-1.2) mg/dL POC Creatinine (0.6-1.2) Glucose (70-105) mg/dL POC Glucose (70-105) Calcium (8.6-10.4) mg/dL POC WB Ioniz Calcium (1.16-1.32) Phosphorus (2.5-4.5) mg/dL AST (<40) U/L Lactate Dehydrogenase (135-225) U/L Total Creatine Kinase 1619 H (24-195) U/L Total Protein (5.9-8.4) gm/dL Albumin (3.2-5.2) gm/dL Beta-Hydroxybutyrate 0.60 H (<0.27) mmol/L 08/25/22 08/25/22 08/25/22 Range/Units 14:44 15:49 16:30 WBC (4.5-11.0) K/mcL RBC (4.63-6.08) M/mcL Hgb (13.7-17.5) g/dL Hct (40.1-51.0) % POC Hct 26.0 L (41-55) Neut % (Auto) (38.0-78.0) % Lymph % (Auto) (15.5-49.0) % Lymph # (Auto) (1.50-4.80) K/mcL [place] # (Auto) (0.10-0.90) K/mcL Immature Gran # (0.00-0.05) K/mcl Absolute Neutrophils (1.80-8.00) K/mcL POC PT 14.8 H (11.9-14.5) POC VBG pCO2 at Temp (41-51) POC VBG pO2 (25-40) POC VBG HCO3 (24-28) POC VBG Total CO2 (25-29) POC Venous O2 Sat (40-70) POC VBG Base Excess (-2-2) VBG Lactic Acid (0.5-2) POC Sodium 127 L (133-145) Sodium 126 L (133-145) mmol/L POC Chloride 93 L (96-108) Chloride 93 L (96-108) mmol/L Carbon Dioxide 18 L (22-30) mmol/L POC Total CO2 15.0 L (22-30) POC Anion Gap 25.0 H (8.0-16.0) POC BUN 22 H (6-20) BUN 24 H (8-23) mg/dL Creatinine 1.4 H (0.7-1.2) mg/dL POC Creatinine 1.5 H (0.6-1.2) Glucose 519 H* (70-105) mg/dL POC Glucose 623 H* (70-105) Calcium 7.7 L (8.6-10.4) mg/dL POC WB Ioniz Calcium 1.01 L (1.16-1.32) Phosphorus 2.1 L (2.5-4.5) mg/dL AST 45 H (<40) U/L Lactate Dehydrogenase 243 H (135-225) U/L Total Creatine Kinase (24-195) U/L Total Protein 5.3 L (5.9-8.4) gm/dL Albumin 3.0 L (3.2-5.2) gm/dL Beta-Hydroxybutyrate (<0.27) mmol/L 08/25/22 Range/Units 16:33 WBC (4.5-11.0) K/mcL RBC (4.63-6.08) M/mcL Hgb (13.7-17.5) g/dL Hct (40.1-51.0) % POC Hct (41-55) Neut % (Auto) (38.0-78.0) % Lymph % (Auto) (15.5-49.0) % Lymph # (Auto) (1.50-4.80) K/mcL [place] # (Auto) (0.10-0.90) K/mcL Immature Gran # (0.00-0.05) K/mcl Absolute Neutrophils (1.80-8.00) K/mcL POC PT (11.9-14.5) POC VBG pCO2 at Temp 31.3 L (41-51) POC VBG pO2 (25-40) POC VBG HCO3 17.4 L (24-28) POC VBG Total CO2 18.0 L (25-29) POC Venous O2 Sat (40-70) POC VBG Base Excess -8.0 L (-2-2) VBG Lactic Acid 7.4 H* (0.5-2) POC Sodium (133-145) Sodium (133-145) mmol/L POC Chloride (96-108) Chloride (96-108) mmol/L Carbon Dioxide (22-30) mmol/L POC Total CO2 (22-30) POC Anion Gap (8.0-16.0) POC BUN (6-20) BUN (8-23) mg/dL Creatinine (0.7-1.2) mg/dL POC Creatinine (0.6-1.2) Glucose (70-105) mg/dL POC Glucose (70-105) Calcium (8.6-10.4) mg/dL POC WB Ioniz Calcium (1.16-1.32) Phosphorus (2.5-4.5) mg/dL AST (<40) U/L Lactate Dehydrogenase (135-225) U/L Total Creatine Kinase (24-195) U/L Total Protein (5.9-8.4) gm/dL Albumin (3.2-5.2) gm/dL Beta-Hydroxybutyrate (<0.27) mmol/L H & H 08/25/22 Range/Units 14:40 Hgb 8.4 L (13.7-17.5) g/dL Hct 26.1 L (40.1-51.0) % All other labs normal. A/P Narrative A/P Narrative: Assessment: 61 YO male w/ Hx of HTN, hepatitis C, DM 1 in DKA, Anemia who sustained bilat hip fractures after reported ground level falls. On exam patient is seated in bed in no acute distress pupils are PERRL, with intact ocular motion, CN II through XII are grossly intact, mucous membranes are moist. Neck is supple and nontender, trachea midline. Head, neck, chest, pelvis are nontender to palpation. Lungs are equal and clear bilaterally, heart normal rate and rhythm. Bilateral upper extremities are warm, well-perfused, neurovascular intact with 5/5 strength. Normal bowel sounds. Bilateral lower extremities are warm, well-perfused, neurovascular intact there is tenderness to palpation about both hips and with any range of motion. Both lower extremities are externally rotated. Options were presented to the patient including nonsurgical and surgical options. Nonsurgical carries a risk of increased pain, increased injury to adjacent structures including nerves and blood vessels, loss of range of motion and loss of mobility. At this time patient is interested in surgery. Plan is for left hip percutaneous intramedullary nail placement and right hip percutaneous intramedullary nail placement with possible plating, possible cable fixation to take place semi-emergently with Dr. Rodriguez orthopedic surgeon and JES[facility] Lester. Surgical risks were relayed to the patient and his father also in the room including but not limited to: Pain, bleeding, infection, injury to adjacent structures including nerves and blood vessels, need for further surgery, implant failure, stroke risk, cardiac complications including heart attack or ME, pulmonary complications including blood clots and pulmonary embolism, DVT, anesthesia reactions and . Patient understands these risks and wishes to proceed with surgery. Time Spent With Patient Time: Total time spent is greater than 50% in coordination of care (as documented) at patient's floor/unit and/or counseling patient:
[2022-08-25] MEDS ORDERED: ONDANSETRON 4 MG/2 ML VIAL IV PRN (18:20)
[2022-08-25] MEDS ORDERED: POLYETHYLENE GLYCOL 3350 17 GM PACKET PO PRN (18:20)
[2022-08-25] MEDS ORDERED: MAGNESIUM SULFATE 2 GM/50 ML BAG IV PRN (18:20)
[2022-08-25] MEDS ORDERED: POTASSIUM CHLORIDE 40 MEQ in DEXTROSE 5% IN WATER 500 ML IV PRN (18:20)
[2022-08-25] MEDS ORDERED: IPRATROPIUM/ALBUTEROL 3 ML AMPUL.NEB NEB PRN (18:20)
[2022-08-25] MEDS ORDERED: SENNOSIDES 1 TABLET PO PRN (18:20)
[2022-08-25] MEDS ORDERED: ACETAMINOPHEN 325 MG TABLET PO PRN (18:20)
[2022-08-25] MEDS ORDERED: HYDROcodone/APAP 5/325MG TABLET PO PRN (18:20)
[2022-08-25] MEDS ORDERED: POTASSIUM CHLORIDE 20 MEQ TABLET PO PRN ×2 (18:20)
[2022-08-25 18:31] LABS: Appearance,Urine CLEAR (Clear); Bilirubin,Urine Negative (Negative); Color,Urine YELLOW; Culture Indicated,Urine No; Glucose,Urine (UA) >=500 mg/dL (Negative); Ketones,Urine 20 mg/dL (Negative); Leukocyte Esterase,Urine Negative /uL (Negative); Mucus,Urine FEW /hpf; Nitrate,Urine Negative (Negative); Protein,Urine Negative (Negative); Specific Gravity,Urine 1.023 (1.000-1.035); Urine Hyaline Cast 8 /lph (0-2); Urine RBC 1 /hpf (0-3); Urine Squamous Epithelial Cell < 1 /hpf (0-4); Urine WBC 2 /hpf (0-4); Urobilinogen,Urine Negative
[2022-08-25] MEDS: morphine 4 MG/ML VIAL IV PRN (18:55)
[2022-08-25 19:15] LABS: Band Neutrophils % 8 % (0-10); Lymphocytes % 4 % (15-49); Monocytes % (Manual) 4 % (1-12); Platelet Estimate NORMAL (Normal); RBC Morphology NORMAL (Normal); Segmented Neutrophils % 84 % (38-78)
[2022-08-25] MEDS: 0.9 % SODIUM CHLORIDE 1,000 ML IV SCH (19:25)
[2022-08-25] MEDS ORDERED: INSULIN REGULAR, HUMAN 1 UNIT/0.01 ML UNIT ONE (19:43)
[2022-08-25] MEDS: INSULIN REGULAR, HUMAN 50 UNIT in 0.9 % SODIUM CHLORIDE 99.5 ML IV SCH (20:06)
[2022-08-25] MEDS: DEXTROSE 5%-NS 1,000 ML IV SCH (21:03)
[2022-08-25] MEDS: ATORVASTATIN 10 MG TABLET PO SCH (21:09)
[2022-08-25] MEDS: DOCUSATE SODIUM 100 MG CAPSULE PO SCH (21:09)
[2022-08-26] MEDS: 0.9 % SODIUM CHLORIDE 1,000 ML IV SCH ×2 (01:19→06:56)
[2022-08-26] MEDS: DEXTROSE 5%-NS 1,000 ML IV SCH (03:40)
[2022-08-26] MEDS: morphine 4 MG/ML VIAL IV PRN ×6 (05:08→14:46)
[2022-08-26 06:43] LABS: Basophils # (Auto) 0.01 K/mcL (0.00-0.30); Basophils % (Auto) 0.1 % (0.0-2.0); Eosinophils # (Auto) 0 K/mcL (0.00-0.70); Eosinophils % (Auto) 0 % (0.0-7.0); Hematocrit 27.8 % (40.1-51.0); Hemoglobin 9.4 g/dL (13.7-17.5); Lymphocytes # (Auto) 1.26 K/mcL (1.50-4.80); Lymphocytes % (Auto) 8.3 % (15.5-49.0); Mean Cell Volume 89.4 fL (80.0-100.0); Mean Corpuscular HGB Conc 33.8 g/dL (31.0-36.0); Mean Platelet Volume 10.4 fL (8.8-12.5); Monocytes # (Auto) 1.37 K/mcL (0.10-0.90); Neutrophils % (Auto) 82.3 % (38.0-78.0); Platelet Count 157 K/mcL (140-440); RBC 3.11 M/mcL (4.63-6.08); Red Cell Distribution Width 13.1 % (11.5-14.5); WBC 15.3 K/mcL (4.5-11.0)
[2022-08-26 06:55] LABS: ALT/SGPT 20 U/L (<40); AST/SGOT 55 U/L (<40); Albumin 2.7 gm/dL (3.2-5.2); Albumin/Globulin Ratio 1.1 (1.0-2.3); Alkaline Phosphatase 46 U/L (39-117); Bilirubin,Direct < 0.2 mg/dL (0-0.3); Bilirubin,Total 0.5 mg/dL (0.1-1.0); Blood Urea Nitrogen 26 mg/dL (8-23); Calcium 7.5 mg/dL (8.6-10.4); Carbon Dioxide 23 mmol/L (22-30); Chloride 102 mmol/L (96-108); Globulin 2.4 gm/dL (2.2-3.7); Glomerular Filtration Rate 80; Glucose 177 mg/dL (70-105); Lactate Dehydrogenase 259 U/L (135-225); Phosphorous 2.7 mg/dL (2.5-4.5); Triglycerides 70 mg/dL (<150); Uric Acid 5.8 mg/dL (2.5-8.0)
--- NOTE | 2022-08-26 07:45 | Internal Med Progress Note ---
SUBJECTIVE Subjective Patient information: Note initiated : 08/26/22 at 7:39 am Service Date, if different from initiated Date: [] Patient: Gagan Olivas 61 y/o M admitted on 08/25/22. Chief Complaint: [] Interval history: History of present illness: Mr. Olivas is a 61 year old M Presents the ED after fall and has been on the floor all night. Patient has diabetes type 1 and administer his own insulin. He has a Dexcom that read low last night but does not have an actual number. He says his blood sugars get low several times a week. He believes that around the time his blood glucose dropped last night is when he fell. He then got up and walked over to another part of the floor and lay down again. Then it sounds like in the director information security hours he got back up and fell again. He never called any family members, remaining on the floor until his mom came in at around 1230 and found him on the floor. Patient complained of bilateral hip pain. Patient states he was in his normal state of health until last night. Patient states he is takes 16 units of long-acting insulin each morning and then short acting with each meal. Noted to have bilateral hip pain. No LOC or hitting his head. Today's blood glucose read as high. In the ED patient found to have bilateral hip fractures for which Dr. Rodriguez was contacted. Patient also found to be in DKA. Patient started on IV fluids and insulin drip. Also found to be quite anemic 8.4 with a baseline hemoglobin ~14.0. Likely secondary to bleeding from bilateral hip fractures. 2 units of blood ordered in ED. Leukocytosis noted but patient afebrile. Chest x-ray unremarkable. UA pending. CPK was noted to be 1619 and lactate was elevated at 10.8 with repeat after 1.3L's showing 7.4 Also found to have acute kidney injury with a creatinine of 1.5 on [id number]. Vital signs showed tachycardia in the 110s with remaining vital signs stable. He did have some nausea when EMS was calling about. But denied any headaches fever chills chest pain shortness of breath 08/26 Patient feeling a little better today. Not as somnolent. Anion gap closed and will transition to subcu insulin. CPK increased today and will continue IV fluids and monitor. Leukocytosis but patient afebrile, suspect reactive but monitoring closely. Severe lactic acidosis resolved. Pain not quite controlled and will increase as needed IV morphine. Review of Systems: Pertinent positive as above. Denies headache/fever/chills/vomiting/chest or abdominal pain/cough/dyspnea/diarrhea. Remaining 10 point review system reviewed negative PHYSICAL EXAM General: Alert, Awake, No acute Distress, obese Eyes/N/T: EOMI, no scleral icterus, Head/Neck: neck supple, full ROM, CV: Mildly tacky but regular, No murmurs, Pulm: Clear b/l, no wheezing/rhonchi/rales, no respiratory distress Abd: soft, nontender, +BS x4 Ext: no clubbing/cyanosis, trace b/l LE edema, nontender Neuro: Alert, no focal deficits, , sensations intact b/l upper/lower Psychiatric: Skin: warm/dry, normal color Constitutional Vitals: Vital Signs Temp Pulse Resp BP Pulse Ox O2 Del Method 97.2 F 100 H 15 134/65 99 Room Air 08/26/22 04:01 08/26/22 04:01 08/26/22 04:01 08/26/22 04:01 08/26/22 04:01 08/26/22 04:01 Period Temp Pulse Resp BP Sys/Navarro Pulse Ox O2 Del Method O2 Flow Rate Last 24 Hr 97.2 F-98.2 F 98-136 - 98-145/51-90 94-100 Room Air-Room Air Intake and Output 08/25/22 08/26/22 08/26/22 19:59 03:59 11:59 Intake Total 2318 2094 10 Output Total 800 225 550 Balance 1519 1870 -540 Weight 98.611 kg Intake & Output: Intake & Output 08/25/22 08/26/22 08/26/22 19:59 03:59 11:59 Intake Total 2318 2094 10 Output Total 800 225 550 Balance 1519 1870 -540 Weight 98.611 kg Intake: IV 2318 1445 10 Sodium Chloride 0.9% 1,000 ml @ 1000 Wide Open IV BOLUS ONE Rx#: [id number] Dextrose 5%-Ns IV Solution 1, 993 000 ml @ 150 mls/hr IV .Q6H40M [facility] Rx#:[id number] HumuLIN R 50 UNIT In Sodium 79 102 10 Chloride 0.9% 99.5 ml @ 11 UNIT /HR 22 mls/hr IV DUR MARCIA Rx#: [id number] Lactated Ringers 1,000 ml @ 1000 Wide Open IV BOLUS ONE Rx#: [id number] NaCl 0.9% W/KCl 20Meq 1000ML 1, 240 300 000 ml @ 100 mls/hr IV .Q10H [facility] Rx#:[id number] Blood Product 650 Output: Urine Catheter Amount 225 550 Void Amount 800 Uretheral (Hagan) 800 Other: Urine Appearance Clear Clear Uretheral (Hagan) Clear Urine Color Yellow Dark Yellow Uretheral (Hagan) Yellow OBJ DATA Labs 08/26/22 05:27 08/26/22 05:27 Labs: Abnormal Lab Results 08/26/22 08/26/22 08/26/22 05:32 05:27 05:27 WBC 15.3 H RBC 3.11 L Hgb 9.4 L Hct 27.8 L POC Hct Neut % (Auto) 82.3 H Lymph % (Auto) 8.3 L Lymph # (Auto) 1.26 L [place] # (Auto) 1.37 H Seg Neutrophils % Lymphocytes % Immature Gran # Absolute Neutrophils 12.58 H POC PT POC VBG pCO2 at Temp POC VBG pO2 POC VBG HCO3 POC VBG Total CO2 POC Venous O2 Sat POC VBG Base Excess VBG Lactic Acid POC Sodium Sodium 132 L POC Chloride Chloride Carbon Dioxide POC Total CO2 Anion Gap 7.0 L POC Anion Gap POC BUN BUN 26 H Creatinine POC Creatinine Glucose 177 H POC Glucose Calcium 7.5 L POC WB Ioniz Calcium Phosphorus GGT 7 L AST 55 H Lactate Dehydrogenase 259 H Total Creatine Kinase 2226 H Total Protein 5.1 L Albumin 2.7 L Beta-Hydroxybutyrate Urine Glucose (UA) Urine Ketones Hyaline Casts Urine Mucus 08/25/22 08/25/22 08/25/22 20:34 18:00 16:33 WBC RBC Hgb Hct POC Hct Neut % (Auto) Lymph % (Auto) Lymph # (Auto) [place] # (Auto) Seg Neutrophils % Lymphocytes % Immature Gran # Absolute Neutrophils POC PT POC VBG pCO2 at Temp 36.7 L 31.3 L POC VBG pO2 POC VBG HCO3 21.0 L 17.4 L POC VBG Total CO2 22.0 L 18.0 L POC Venous O2 Sat POC VBG Base Excess -4.0 L -8.0 L VBG Lactic Acid 4.3 H* 7.4 H* POC Sodium Sodium POC Chloride Chloride Carbon Dioxide POC Total CO2 Anion Gap POC Anion Gap POC BUN BUN Creatinine POC Creatinine Glucose POC Glucose Calcium POC WB Ioniz Calcium Phosphorus GGT AST Lactate Dehydrogenase Total Creatine Kinase Total Protein Albumin Beta-Hydroxybutyrate Urine Glucose (UA) >=500 A Urine Ketones 20 A Hyaline Casts 8 H Urine Mucus Few A 08/25/22 08/25/22 08/25/22 16:30 15:49 14:44 WBC RBC Hgb Hct POC Hct 26.0 L Neut % (Auto) Lymph % (Auto) Lymph # (Auto) [place] # (Auto) Seg Neutrophils % Lymphocytes % Immature Gran # Absolute Neutrophils POC PT 14.8 H POC VBG pCO2 at Temp POC VBG pO2 POC VBG HCO3 POC VBG Total CO2 POC Venous O2 Sat POC VBG Base Excess VBG Lactic Acid POC Sodium 127 L Sodium 126 L POC Chloride 93 L Chloride 93 L Carbon Dioxide 18 L POC Total CO2 15.0 L Anion Gap POC Anion Gap 25.0 H POC BUN 22 H BUN 24 H Creatinine 1.4 H POC Creatinine 1.5 H Glucose 519 H* POC Glucose 623 H* Calcium 7.7 L POC WB Ioniz Calcium 1.01 L Phosphorus 2.1 L GGT AST 45 H Lactate Dehydrogenase 243 H Total Creatine Kinase Total Protein 5.3 L Albumin 3.0 L Beta-Hydroxybutyrate Urine Glucose (UA) Urine Ketones Hyaline Casts Urine Mucus 08/25/22 08/25/22 08/25/22 14:44 14:40 14:40 WBC 16.9 H RBC 2.84 L Hgb 8.4 L Hct 26.1 L POC Hct Neut % (Auto) 89.7 H Lymph % (Auto) 2.4 L Lymph # (Auto) 0.41 L [place] # (Auto) 1.25 H Seg Neutrophils % 84 H Lymphocytes % 4 L Immature Gran # 0.07 H Absolute Neutrophils 15.16 H POC PT POC VBG pCO2 at Temp 28.7 L POC VBG pO2 23 L POC VBG HCO3 14.7 L POC VBG Total CO2 16.0 L POC Venous O2 Sat 36.0 L POC VBG Base Excess -11.0 L VBG Lactic Acid 10.8 H* POC Sodium Sodium POC Chloride Chloride Carbon Dioxide POC Total CO2 Anion Gap POC Anion Gap POC BUN BUN Creatinine POC Creatinine Glucose POC Glucose Calcium POC WB Ioniz Calcium Phosphorus GGT AST Lactate Dehydrogenase Total Creatine Kinase Total Protein Albumin Beta-Hydroxybutyrate Urine Glucose (UA) Urine Ketones Hyaline Casts Urine Mucus 08/25/22 14:40 WBC RBC Hgb Hct POC Hct Neut % (Auto) Lymph % (Auto) Lymph # (Auto) [place] # (Auto) Seg Neutrophils % Lymphocytes % Immature Gran # Absolute Neutrophils POC PT POC VBG pCO2 at Temp POC VBG pO2 POC VBG HCO3 POC VBG Total CO2 POC Venous O2 Sat POC VBG Base Excess VBG Lactic Acid POC Sodium Sodium POC Chloride Chloride Carbon Dioxide POC Total CO2 Anion Gap POC Anion Gap POC BUN BUN Creatinine POC Creatinine Glucose POC Glucose Calcium POC WB Ioniz Calcium Phosphorus GGT AST Lactate Dehydrogenase Total Creatine Kinase 1619 H Total Protein Albumin Beta-Hydroxybutyrate 0.60 H Urine Glucose (UA) Urine Ketones Hyaline Casts Urine Mucus Meds: Medications Acetaminophen (Acetaminophen 325 Mg Tablet) 650 mg PO Q6HP PRN PRN Reason: fever > 101 Hydrocodone Bitart/Acetaminophen (Hydrocodone/Apap 5/325mg Tablet) 1 tab PO Q4HP PRN PRN Reason: PAIN LEVEL 3-6 Albuterol/Ipratropium (Ipratropium/Albuterol 3 Ml Ampul.Neb) 3 ml NEB Q4HP PRN PRN Reason: Shortness Of Breath Amlodipine Besylate (Amlodipine 5 Mg Tablet) 5 mg PO DAILY [facility] Atorvastatin Calcium (Atorvastatin 10 Mg Tablet) 10 mg PO HS [facility] Last Admin: 08/25/22 21:09 Dose: 10 mg Diagnostic Test (Pha) (Accu-Chek 1 Each Strip) 1 each FS Q1 [facility] Last Admin: 08/26/22 05:53 Dose: 1 each Docusate Sodium (Docusate Sodium 100 Mg Capsule) 100 mg PO BID [facility] Last Admin: 08/25/22 21:09 Dose: 100 mg Fluoxetine HCl (Fluoxetine Hcl 20 Mg Capsule) 40 mg PO QAM [facility] Potassium Chloride 40 meq/ (Dextrose) 520 mls @ 130 mls/hr IV UD PRN PRN Reason: Potassium Level < 3 Magnesium Sulfate (Magnesium Sulfate) 2 gm in 50 mls @ 25 mls/hr IV UD PRN PRN Reason: Magnesium Level </= 1.6 Last Infusion: 08/25/22 23:02 Dose: Infused Sodium Chloride (Sodium Chloride 0.9%) 1,000 mls @ 150 mls/hr IV .Q6H40M MARCIA Last Admin: 08/26/22 06:56 Dose: Not Given Insulin Human Regular 50 unit/ (Sodium Chloride) 100 mls @ 22 mls/hr IV DUR [facility]; Protocol Last Titration: 08/26/22 05:06 Dose: 3 unit/hr, 6 mls/hr Dextrose/Sodium Chloride (Dextrose 5%-Ns Iv Solution) 1,000 mls @ 150 mls/hr IV .Q6H40M MARCIA Last Admin: 08/26/22 03:40 Dose: 150 mls/hr Insulin Glargine (Insulin Glargine, Human 1 Unit/0.01 Ml) 19 unit SQ DAILY [facility] Morphine Sulfate (Morphine 4 Mg/Ml Vial) 0 mg IV Q3HP PRN PRN Reason: Pain Last Admin: 08/26/22 05:08 Dose: 2 mg Ondansetron HCl (Ondansetron 4 Mg/2 Ml Vial) 4 mg IV Q4HP PRN PRN Reason: Nausea And Vomiting Pantoprazole Sodium (Pantoprazole 40 Mg Tablet) 40 mg PO QAMAC MARCIA Polyethylene Glycol (Polyethylene Glycol 3350 17 Gm Packet) 17 gm PO DAILYP PRN PRN Reason: Constipation Potassium Chloride (Potassium Chloride 20 Meq Tablet) 40 meq PO UD PRN PRN Reason: Potassium Level of 3-3.5 Potassium Chloride (Potassium Chloride 20 Meq Tablet) 40 meq PO UD PRN PRN Reason: Potassium Level < 3 Senna (Sennosides 1 Tablet) 2 tab PO DAILYP PRN PRN Reason: Constipation A/P Narrative A/P Narrative: A: *DKA (h/o DM1): -pt states he gets low BG several times per week *AG Met-Acidosis with Severe lactic acidosis: 2/2 above -improved *Fall: 2/2 likely hypoglycemic event *b/l Hip Fxs: 2/2 above *Rhabdomyolysis: 2/2 above -cpk 1619>2226 *DEMARIO on CKD II: 2/2 above, improved *Acute anemia: Likely blood loss from bilateral hip fracture site hemorrhage -s/p 2prbc in ED *Leukocytosis: Likely reactive, monitor. Patient afebrile, no bandemia *Hyponatremia: *h/o CVA: mild residual vision impairment, no focal weakness *Depression: *HTN: *Obesity: BMI 30 P: -Insulin drip DKA protocol, transition to SQ -IVF -Monitor H&H -Trend renal function/monitor UOP -Monitor electrolytes and replace -f/u cpk -Dr. Rodriguez for orthopedic surgery -Continue home Norvasc, hold ACEI/HCTZ for demario and volume depletion -cont statin, hold aspirin preop -PT/OT -CM for placement need -ppx: SCD for now and follow-up H&H, post-op per ortho Time Spent With Patient Time: Total time spent is greater than 50% in coordination of care (as documented) at patient's floor/unit and/or counseling patient: Subsequent: Total time with patient: 50 - 65 Minutes
[2022-08-26] MEDS: INSULIN REGULAR, HUMAN 50 UNIT in 0.9 % SODIUM CHLORIDE 99.5 ML IV SCH (08:03)
[2022-08-26] MEDS ORDERED: INSULIN GLARGINE, HUMAN 1 UNIT/0.01 ML SQ ONE (08:08)
[2022-08-26] MEDS: INSULIN GLARGINE, HUMAN 1 UNIT/0.01 ML SQ SCH (08:09)
[2022-08-26] MEDS: DOCUSATE SODIUM 100 MG CAPSULE PO SCH ×2 (08:13→22:30)
[2022-08-26] MEDS: amLODIPine 5 MG TABLET PO SCH (08:13)
[2022-08-26] MEDS: FLUoxetine HCL 20 MG CAPSULE PO SCH (08:13)
[2022-08-26] MEDS: PANTOPRAZOLE 40 MG TABLET PO SCH (08:14)
[2022-08-26] MEDS ORDERED: 0.9 % SODIUM CHLORIDE 250 ML IV SCH ×3 (08:30→21:45)
[2022-08-26] MEDS ORDERED: 0.9 % SODIUM CHLORIDE 1,000 ML IV SCH (09:15)
[2022-08-26] MEDS: INSULIN LISPRO 1 UNIT/0.01 ML UNIT SQ SCH ×6 (11:38→23:36)
[2022-08-26] MEDS ORDERED: METHOCARBAMOL 1,000 MG/10 ML VIAL IV ONE (13:48)
[2022-08-26] MEDS ORDERED: HYDROmorphone 0.5 MG/0.5 ML SYRINGE IV ONE (13:48)
[2022-08-26] MEDS ORDERED: MIDAZOLAM 2 MG/2 ML VIAL IV ONE (15:22)
[2022-08-26] MEDS ORDERED: MIDAZOLAM 2 MG/2 ML VIAL ONE (15:26)
[2022-08-26] MEDS ORDERED: HYDROmorphone 1 MG/ML SYRINGE ONE (17:49)
[2022-08-26] MEDS ORDERED: KETOROLAC 15 MG/ML VIAL ONE (17:49)
[2022-08-26] MEDS ORDERED: PROPOFOL 200 MG/20 ML VIAL IV ONE (17:49)
[2022-08-26] MEDS ORDERED: SUGAMMADEX SODIUM 200 MG/2 ML VIAL IV ONE (17:49)
[2022-08-26] MEDS ORDERED: PHENYLephrine 1 MG/10 ML SYRINGE (ANEST) ONE (17:49)
[2022-08-26] MEDS ORDERED: ROCURONIUM 10 MG/ML ML IV ONE (17:49)
[2022-08-26] MEDS ORDERED: ONDANSETRON 4 MG/2 ML VIAL ONE (17:49)
[2022-08-26] MEDS ORDERED: TRANEXAMIC ACID 1,000 MG/10 ML VIAL ONE ×2 (17:49→22:08)
[2022-08-26] MEDS ORDERED: ROPIVACAINE HCL/PF 30 ML VIAL IJ ONE (17:49)
[2022-08-26] MEDS ORDERED: fentaNYL 100 MCG/2 ML VIAL IV ONE ×2 (17:49→22:10)
[2022-08-26] MEDS ORDERED: ceFAZolin 2 GM in DEXTROSE 5% IN WATER 50 ML IV SCH ×2 (18:00→21:45)
--- NOTE | 2022-08-26 21:36 | General Surgery Procedure Note ---
Date of procedure: Note initiated : 08/26/22 at 9:34 pm Service Date, if different from initiated Date: [] Pre-op diagnosis: bilateral hip fracture, subtrochanteric on right intratrochanteric on left Post-op diagnosis: same Procedure: cephalomedullary nailing bilateral hips, open reduction right hip Findings: bilateral hip fx Grafts/Implants: synthes Anesthesia: spinal Surgeon: Elroy Rodriguez [employer]: Azeem Mackenzie Estimated blood loss: 500 Pathology: none sent Condition: stable Disposition: PACU
--- NOTE | 2022-08-26 21:36 | Discharge Plan ---
DC Instructions-General Patient Instructions Dressing Care: May shower in 2 days Discharge Plan Patient/Caregiver Discharge Instructions Activity: ambulate only with your walker and as per physical therapy Diet: Regular Diet Prescriptions: No Action (DME) ReliOn Prime Test Strips Strip See Dose Instructions .ROUTE .MEDSUPPLY Qty: 700 5RF Rx Instructions: Use to check blood sugar 8 times daily (DME) pen needle, diabetic [BD Ultra-Fine Mini Pen Needle] 31 gauge x 3/16" needle See Dose Instructions .ROUTE .MEDSUPPLY Qty: 100 4RF Rx Instructions: Use to inject insulin daily insulin degludec [Tresiba FlexTouch U-200] 200 unit/mL (3 mL) insulin pen See Rx Instructions .ROUTE .COMPLEX Qty: 9 4RF Dose Instruction: INJECT 32 UNITS UNDER THE SKIN ONCE DAILY Rx Instructions: INJECT 24 UNITS UNDER THE SKIN ONCE DAILY (DME) Dexcom G6 Sensor Device See Rx Instructions .Route Qty: 3 12RF Rx Instructions: As directed fluoxetine 40 mg capsule 40 mg PO QAM Qty: 90 4RF insulin lispro [Humalog U-100 Insulin] 100 unit/mL solution 1 sliding scale dose subcut .With Each Meal MDD 50units Qty: 10 5RF Rx Instructions: Medium sliding scale (DME) Dexcom G6 Transmitter Device See Rx Instructions .Route Qty: 1 0RF Rx Instructions: As directed aspirin [Adult Low Dose Aspirin] 81 mg tablet,delayed release (DR/EC) 81 mg PO QDAY (DME) OneTouch Ultra Blue Test Strip strip See Dose Instructions .ROUTE .MEDSUPPLY Qty: 10 Rx Instructions: As directed amlodipine 5 mg tablet 5 mg PO QDAY benazepril 40 mg tablet 40 mg PO QDAY hydrochlorothiazide 25 mg tablet 25 mg PO QDAY pravastatin 80 mg tablet 80 mg PO QHS Follow Up Plan Follow up with: Ariel Fuentes MD [Primary Care Provider] - Elroy Rodriguez MD [Physician] - Patient Disposition: Xfer SNF Prognosis: Good Rehab Potential: Good I certify that the patient requires SNF services: Yes Overall status at discharge: patient is progressing back to baseline Discharge Orders: Discharge Order (Routine); Ordered 08/26/22 Ordered By: Elroy Rodriguez Discharge Comment: cc: bilateral hip fractures s/p cmn
[2022-08-26] MEDS ORDERED: ONDANSETRON 4 MG ODT TABLET SL PRN (21:37)
[2022-08-26] MEDS ORDERED: BISACODYL 10 MG SUPP.RECT PR PRN (21:37)
[2022-08-26] MEDS ORDERED: TRANEXAMIC ACID 1,000 MG/10 ML VIAL IV ONE (21:37)
[2022-08-26] MEDS ORDERED: FLEETS ADULT ENEMA PR PRN (21:37)
[2022-08-26] MEDS ORDERED: BENZOCAINE/MENTHOL 1 LOZENGE PO PRN (21:37)
[2022-08-26] MEDS ORDERED: HYDROmorphone 0.5 MG/0.5 ML SYRINGE IV PRN (22:10)
[2022-08-26] MEDS ORDERED: METOPROLOL TARTRATE 5 MG/5 ML VIAL IV PRN (22:10)
[2022-08-26] MEDS ORDERED: ONDANSETRON 4 MG/2 ML VIAL IV PRN (22:10)
[2022-08-26] MEDS ORDERED: ACETAMINOPHEN 1,000 MG/100 ML BAG IV ONE (22:10)
[2022-08-26] MEDS ORDERED: LABETALOL 5 MG/ML ML IV PRN (22:10)
[2022-08-26] MEDS ORDERED: PROMETHAZINE 25 MG/ML VIAL IV PRN (22:10)
[2022-08-26] MEDS ORDERED: IPRATROPIUM/ALBUTEROL 3 ML AMPUL.NEB NEB PRN (22:10)
[2022-08-26] MEDS: ATORVASTATIN 10 MG TABLET PO SCH (22:30)
[2022-08-27 00:08] LABS: Basophils # (Auto) 0.04 K/mcL (0.00-0.30); Basophils % (Auto) 0.2 % (0.0-2.0); Eosinophils # (Auto) 0 K/mcL (0.00-0.70); Eosinophils % (Auto) 0 % (0.0-7.0); Hematocrit 29.3 % (40.1-51.0); Hemoglobin 9.6 g/dL (13.7-17.5); Lymphocytes # (Auto) 0.74 K/mcL (1.50-4.80); Lymphocytes % (Auto) 4.4 % (15.5-49.0); Mean Cell Volume 91.6 fL (80.0-100.0); Mean Corpuscular HGB Conc 32.8 g/dL (31.0-36.0); Mean Platelet Volume 10.5 fL (8.8-12.5); Monocytes # (Auto) 1.27 K/mcL (0.10-0.90); Monocytes % (Auto) 7.5 % (1.0-12.0); Neutrophils % (Auto) 86.5 % (38.0-78.0); Platelet Count 127 K/mcL (140-440); Red Cell Distribution Width 13.4 % (11.5-14.5); WBC 16.9 K/mcL (4.5-11.0)
[2022-08-27] MEDS ORDERED: ceFAZolin 1 GM VIAL ONE (01:31)
[2022-08-27] MEDS: ceFAZolin 1 GM VIAL IV SCH ×2 (01:33→10:33)
[2022-08-27] MEDS: morphine 4 MG/ML VIAL IV PRN ×4 (01:47→20:32)
--- NOTE | 2022-08-27 03:07 | XRay Report ---
CLINICAL INFORMATION: bilateral hip IM nailing COMPARISON: None. FINDINGS: Multiple digital images are submitted from the OR. On the right, the spiral subtrochanteric fracture was reduced to anatomic alignment and transfixed by gamma nail. On the left, the intratrochanteric fracture was reduced to near anatomic alignment and now transfixed by gamma nail. Total fluoroscopy time three minutes. 0.612 mgym2 IMPRESSION: Bilateral proximal femur fracture is reduced in near-anatomic alignment transfixed by gamma nails. Interpreted and Authenticated by: Elroy Little 08/27/22
[2022-08-27] MEDS: INSULIN LISPRO 1 UNIT/0.01 ML UNIT SQ SCH ×5 (04:06→20:41)
[2022-08-27] MEDS: HYDROcodone/APAP 10/325MG TABLET PO PRN ×4 (04:14→21:56)
[2022-08-27] MEDS ORDERED: HYDROcodone/APAP 10/325MG TABLET PO ONE (04:17)
[2022-08-27 06:40] LABS: Basophils # (Auto) 0 K/mcL (0.00-0.30); Basophils % (Auto) 0 % (0.0-2.0); Eosinophils # (Auto) 0 K/mcL (0.00-0.70); Eosinophils % (Auto) 0 % (0.0-7.0); Hematocrit 25.2 % (40.1-51.0); Hemoglobin 8.3 g/dL (13.7-17.5); Lymphocytes # (Auto) 0.77 K/mcL (1.50-4.80); Lymphocytes % (Auto) 5.8 % (15.5-49.0); Mean Corpuscular HGB Conc 32.9 g/dL (31.0-36.0); Mean Platelet Volume 10.4 fL (8.8-12.5); Monocytes # (Auto) 1.06 K/mcL (0.10-0.90); Monocytes % (Auto) 7.9 % (1.0-12.0); Neutrophils % (Auto) 85.8 % (38.0-78.0); Platelet Count 109 K/mcL (140-440); RBC 2.74 M/mcL (4.63-6.08); Red Cell Distribution Width 13.4 % (11.5-14.5); WBC 13.4 K/mcL (4.5-11.0)
[2022-08-27] MEDS: PANTOPRAZOLE 40 MG TABLET PO SCH (07:35)
[2022-08-27 07:43] LABS: ALT/SGPT 24 U/L (<40); AST/SGOT 73 U/L (<40); Albumin 2.7 gm/dL (3.2-5.2); Albumin/Globulin Ratio 1.4 (1.0-2.3); Alkaline Phosphatase 44 U/L (39-117); Bilirubin,Direct < 0.2 mg/dL (0-0.3); Bilirubin,Total 0.4 mg/dL (0.1-1.0); Blood Urea Nitrogen 25 mg/dL (8-23); Calcium 7.6 mg/dL (8.6-10.4); Carbon Dioxide 24 mmol/L (22-30); Chloride 102 mmol/L (96-108); Globulin 1.9 gm/dL (2.2-3.7); Glomerular Filtration Rate 95; Glucose 217 mg/dL (70-105); Lactate Dehydrogenase 276 U/L (135-225); Triglycerides 99 mg/dL (<150); Uric Acid 4.4 mg/dL (2.5-8.0)
--- NOTE | 2022-08-27 07:49 | Internal Med Progress Note ---
SUBJECTIVE Subjective Patient information: Note initiated : 08/27/22 at 7:42 am Service Date, if different from initiated Date: [] Patient: Gagan Olivas 61 y/o M admitted on 08/25/22. Chief Complaint: [] Interval history: History of present illness: Mr. Olivas is a 61 year old M Presents the ED after fall and has been on the floor all night. Patient has diabetes type 1 and administer his own insulin. He has a Dexcom that read low last night but does not have an actual number. He says his blood sugars get low several times a week. He believes that around the time his blood glucose dropped last night is when he fell. He then got up and walked over to another part of the floor and lay down again. Then it sounds like in the fusion juncture grinder hours he got back up and fell again. He never called any family members, remaining on the floor until his mom came in at around 1230 and found him on the floor. Patient complained of bilateral hip pain. Patient states he was in his normal state of health until last night. Patient states he is takes 16 units of long-acting insulin each morning and then short acting with each meal. Noted to have bilateral hip pain. No LOC or hitting his head. Today's blood glucose read as high. In the ED patient found to have bilateral hip fractures for which Dr. Rodriguez was contacted. Patient also found to be in DKA. Patient started on IV fluids and insulin drip. Also found to be quite anemic 8.4 with a baseline hemoglobin ~14.0. Likely secondary to bleeding from bilateral hip fractures. 2 units of blood ordered in ED. Leukocytosis noted but patient afebrile. Chest x-ray unremarkable. UA pending. CPK was noted to be 1619 and lactate was elevated at 10.8 with repeat after 1.3L's showing 7.4 Also found to have acute kidney injury with a creatinine of 1.5 on [id number]. Vital signs showed tachycardia in the 110s with remaining vital signs stable. He did have some nausea when EMS was calling about. But denied any headaches fever chills chest pain shortness of breath 08/26 Patient feeling a little better today. Not as somnolent. Anion gap closed and will transition to subcu insulin. CPK increased today and will continue IV fluids and monitor. Leukocytosis but patient afebrile, suspect reactive but monitoring closely. Severe lactic acidosis resolved. Pain not quite controlled and will increase as needed IV morphine. 08/27 Patient had bilateral hip ORIF yesterday. Does have some discomfort in hips but better than before. Leukocytosis improving. CPK increasing. IV fluids today and continue monitoring. Monitor for hypoglycemia as well on home regimen ins ulin. Review of Systems: Pertinent positive as above. Denies headache/fever/chills/vomiting/chest or abdominal pain/cough/dyspnea/diarrhea. Remaining 10 point review system reviewed negative PHYSICAL EXAM General: Alert, Awake, No acute Distress, obese Eyes/N/T: EOMI, no scleral icterus, Head/Neck: neck supple, full ROM, CV: RRR, No murmurs, Pulm: Clear b/l, no wheezing/rhonchi/rales, no respiratory distress Abd: soft, nontender, +BS x4 Ext: no clubbing/cyanosis, trace b/l LE edema, nontender Neuro: Alert, no focal deficits, , sensations intact b/l upper/lower Psychiatric: Skin: warm/dry, normal color Constitutional Vitals: Vital Signs Temp Pulse Resp BP Pulse Ox O2 Del Method O2 Flow Rate 97.8 F 86 16 124/64 93 Room Air 2 08/27/22 04:01 08/27/22 04:01 08/27/22 04:01 08/27/22 04:01 08/27/22 04:01 08/27/22 07:16 08/26/22 23:01 Period Temp Pulse Resp BP Sys/Navarro Pulse Ox O2 Del Method O2 Flow Rate Last 24 Hr 97.2 F-99.3 F 81-119 1025 95-152/54-80 87-100 Nasal Cannula- Room Air 2-4 Intake and Output 08/26/22 08/27/22 08/27/22 19:59 03:59 11:59 Intake Total 1114 2925 Output Total 675 1200 375 Balance 439 1725 -375 Weight 102.143 kg Intake & Output: Intake & Output 08/26/22 08/27/22 08/27/22 19:59 03:59 11:59 Intake Total 1114 2925 Output Total 675 1200 375 Balance 439 1725 -375 Weight 102.143 kg Intake: IV 789 500 Sodium Chloride 0.9% 1,000 ml @ 665 100 mls/hr IV .Q10H [facility] Rx#: [id number] Sodium Chloride 0.9% 250 ml @ 74 500 20 mls/hr IV .[id number] [facility] Rx#: [id number] HumuLIN R 50 UNIT In Sodium 0 Chloride 0.9% 99.5 ml @ 11 UNIT /HR 22 mls/hr IV DUR MARCIA Rx#: [id number] Ancef 2 gm In Dextrose 5% in 50 Water 50 ml @ 100 mls/hr IV PREOP MARCIA Rx#:[id number] Oral 0 Blood Product 325 325 IV - Manual Only 2100 Output: Urine Catheter Amount 675 450 375 Estimated Blood Loss 750 Other: Urine Appearance Clear Clear Clear Sediment Uretheral (Hagan) Clear Urine Color Dark Yellow Yellow Dark Yellow Uretheral (Hagan) Yellow OBJ DATA Labs 08/27/22 05:39 08/27/22 05:39 Labs: Abnormal Lab Results 08/27/22 08/26/22 08/26/22 05:39 23:36 05:32 WBC 13.4 H 16.9 H RBC 2.74 L 3.20 L Hgb 8.3 L 9.6 L Hct 25.2 L 29.3 L POC Hct Plt Count 109 L 127 L Immature Gran % (Auto) 1.4 H Neut % (Auto) 85.8 H 86.5 H Lymph % (Auto) 5.8 L 4.4 L Lymph # (Auto) 0.77 L 0.74 L Vil[place] # (Auto) 1.06 H 1.27 H Seg Neutrophils % Lymphocytes % Immature Gran # 0.07 H 0.23 H Absolute Neutrophils 11.45 H 14.58 H POC PT POC VBG pCO2 at Temp POC VBG pO2 POC VBG HCO3 POC VBG Total CO2 POC Venous O2 Sat POC VBG Base Excess VBG Lactic Acid POC Sodium Sodium POC Chloride Chloride Carbon Dioxide POC Total CO2 Anion Gap POC Anion Gap POC BUN BUN Creatinine POC Creatinine Glucose POC Glucose Calcium POC WB Ioniz Calcium Phosphorus GGT AST Lactate Dehydrogenase Total Creatine Kinase 2226 H Total Protein Albumin Beta-Hydroxybutyrate Urine Glucose (UA) Urine Ketones Hyaline Casts Urine Mucus 08/26/22 08/26/22 08/25/22 05:27 05:27 20:34 WBC 15.3 H RBC 3.11 L Hgb 9.4 L Hct 27.8 L POC Hct Plt Count Immature Gran % (Auto) Neut % (Auto) 82.3 H Lymph % (Auto) 8.3 L Lymph # (Auto) 1.26 L Vil[place] # (Auto) 1.37 H Seg Neutrophils % Lymphocytes % Immature Gran # Absolute Neutrophils 12.58 H POC PT POC VBG pCO2 at Temp 36.7 L POC VBG pO2 POC VBG HCO3 21.0 L POC VBG Total CO2 22.0 L POC Venous O2 Sat POC VBG Base Excess -4.0 L VBG Lactic Acid 4.3 H* POC Sodium Sodium 132 L POC Chloride Chloride Carbon Dioxide POC Total CO2 Anion Gap 7.0 L POC Anion Gap POC BUN BUN 26 H Creatinine POC Creatinine Glucose 177 H POC Glucose Calcium 7.5 L POC WB Ioniz Calcium Phosphorus GGT 7 L AST 55 H Lactate Dehydrogenase 259 H Total Creatine Kinase Total Protein 5.1 L Albumin 2.7 L Beta-Hydroxybutyrate Urine Glucose (UA) Urine Ketones Hyaline Casts Urine Mucus 08/25/22 08/25/22 08/25/22 18:00 16:33 16:30 WBC RBC Hgb Hct POC Hct Plt Count Immature Gran % (Auto) Neut % (Auto) Lymph % (Auto) Lymph # (Auto) Vil[place] # (Auto) Seg Neutrophils % Lymphocytes % Immature Gran # Absolute Neutrophils POC PT POC VBG pCO2 at Temp 31.3 L POC VBG pO2 POC VBG HCO3 17.4 L POC VBG Total CO2 18.0 L POC Venous O2 Sat POC VBG Base Excess -8.0 L VBG Lactic Acid 7.4 H* POC Sodium Sodium 126 L POC Chloride Chloride 93 L Carbon Dioxide 18 L POC Total CO2 Anion Gap POC Anion Gap POC BUN BUN 24 H Creatinine 1.4 H POC Creatinine Glucose 519 H* POC Glucose Calcium 7.7 L POC WB Ioniz Calcium Phosphorus 2.1 L GGT AST 45 H Lactate Dehydrogenase 243 H Total Creatine Kinase Total Protein 5.3 L Albumin 3.0 L Beta-Hydroxybutyrate Urine Glucose (UA) >=500 A Urine Ketones 20 A Hyaline Casts 8 H Urine Mucus Few A 08/25/22 08/25/22 08/25/22 15:49 14:44 14:44 WBC RBC Hgb Hct POC Hct 26.0 L Plt Count Immature Gran % (Auto) Neut % (Auto) Lymph % (Auto) Lymph # (Auto) Vil[place] # (Auto) Seg Neutrophils % Lymphocytes % Immature Gran # Absolute Neutrophils POC PT 14.8 H POC VBG pCO2 at Temp 28.7 L POC VBG pO2 23 L POC VBG HCO3 14.7 L POC VBG Total CO2 16.0 L POC Venous O2 Sat 36.0 L POC VBG Base Excess -11.0 L VBG Lactic Acid 10.8 H* POC Sodium 127 L Sodium POC Chloride 93 L Chloride Carbon Dioxide POC Total CO2 15.0 L Anion Gap POC Anion Gap 25.0 H POC BUN 22 H BUN Creatinine POC Creatinine 1.5 H Glucose POC Glucose 623 H* Calcium POC WB Ioniz Calcium 1.01 L Phosphorus GGT AST Lactate Dehydrogenase Total Creatine Kinase Total Protein Albumin Beta-Hydroxybutyrate Urine Glucose (UA) Urine Ketones Hyaline Casts Urine Mucus 08/25/22 08/25/22 08/25/22 14:40 14:40 14:40 WBC 16.9 H RBC 2.84 L Hgb 8.4 L Hct 26.1 L POC Hct Plt Count Immature Gran % (Auto) Neut % (Auto) 89.7 H Lymph % (Auto) 2.4 L Lymph # (Auto) 0.41 L [place] # (Auto) 1.25 H Seg Neutrophils % 84 H Lymphocytes % 4 L Immature Gran # 0.07 H Absolute Neutrophils 15.16 H POC PT POC VBG pCO2 at Temp POC VBG pO2 POC VBG HCO3 POC VBG Total CO2 POC Venous O2 Sat POC VBG Base Excess VBG Lactic Acid POC Sodium Sodium POC Chloride Chloride Carbon Dioxide POC Total CO2 Anion Gap POC Anion Gap POC BUN BUN Creatinine POC Creatinine Glucose POC Glucose Calcium POC WB Ioniz Calcium Phosphorus GGT AST Lactate Dehydrogenase Total Creatine Kinase 1619 H Total Protein Albumin Beta-Hydroxybutyrate 0.60 H Urine Glucose (UA) Urine Ketones Hyaline Casts Urine Mucus Meds: Medications Acetaminophen (Acetaminophen 325 Mg Tablet) 650 mg PO Q6HP PRN PRN Reason: fever > 101 Hydrocodone Bitart/Acetaminophen (Hydrocodone/Apap 5/325mg Tablet) 1 tab PO Q4HP PRN PRN Reason: PAIN LEVEL 3-6 Last Admin: 08/26/22 08:14 Dose: 1 tab Hydrocodone Bitart/Acetaminophen (Hydrocodone/Apap 10/325mg Tablet) 0 tab PO Q4HP PRN; Protocol PRN Reason: Per Pain Protocol Last Admin: 08/27/22 04:14 Dose: 2 tab Albuterol/Ipratropium (Ipratropium/Albuterol 3 Ml Ampul.Neb) 3 ml NEB Q4HP PRN PRN Reason: Shortness Of Breath Amlodipine Besylate (Amlodipine 5 Mg Tablet) 5 mg PO DAILY [facility] Last Admin: 08/26/22 08:13 Dose: 5 mg Apixaban (Apixaban 5 Mg Tablet) 2.5 mg PO BID MARCIA Atorvastatin Calcium (Atorvastatin 10 Mg Tablet) 10 mg PO HS [facility] Last Admin: 08/26/22 22:30 Dose: Not Given Bisacodyl (Bisacodyl 10 Mg Supp.Rect) [address] Q2-3DAYS PRN PRN Reason: Constipation Cefazolin Sodium (Cefazolin 1 Gm Vial) 2 gm IV Q8H [facility]; Protocol Stop: 08/27/22 10:01 Last Admin: 08/27/22 01:33 Dose: 2 gm Diagnostic Test (Pha) (Accu-Chek 1 Each Strip) 1 each FS Q4 [facility] Last Admin: 08/27/22 04:06 Dose: 1 each Docusate Sodium (Docusate Sodium 100 Mg Capsule) 100 mg PO BID [facility] Last Admin: 08/26/22 22:30 Dose: Not Given Docusate Sodium (Docusate Sodium 100 Mg Capsule) 100 mg PO BID [facility] Fluoxetine HCl (Fluoxetine Hcl 20 Mg Capsule) 40 mg PO QAM [facility] Last Admin: 08/26/22 08:13 Dose: 40 mg Potassium Chloride 40 meq/ (Dextrose) 520 mls @ 130 mls/hr IV UD PRN PRN Reason: Potassium Level < 3 Magnesium Sulfate (Magnesium Sulfate) 2 gm in 50 mls @ 25 mls/hr IV UD PRN PRN Reason: Magnesium Level </= 1.6 Last Infusion: 08/25/22 23:02 Dose: Infused Insulin Human Regular 50 unit/ (Sodium Chloride) 100 mls @ 22 mls/hr IV DUR [facility]; Protocol Last Titration: 08/26/22 13:51 Dose: Infused Insulin Glargine (Insulin Glargine, Human 1 Unit/0.01 Ml) 19 unit SQ DAILY [facility] Last Admin: 08/26/22 08:09 Dose: Not Given Insulin Human Lispro (Insulin Lispro 1 Unit/0.01 Ml Unit) 0 unit SQ Q4 [facility]; Protocol Last Admin: 08/27/22 04:06 Dose: 8 unit Magnesium Hydroxide (Magnesium Hydroxide 30 Ml Oral.Susp) 30 ml PO BIDP PRN PRN Reason: Constipation Methocarbamol (Methocarbamol 750 Mg Tablet) 750 mg PO Q6HP PRN PRN Reason: Muscle Spasm Morphine Sulfate (Morphine 4 Mg/Ml Vial) 0 mg IV Q3HP PRN PRN Reason: Pain Last Admin: 08/27/22 01:47 Dose: 4 mg Morphine Sulfate (Morphine 4 Mg/Ml Vial) 0 mg IV Q1HP PRN; Protocol PRN Reason: Per Pain Protocol Last Admin: 08/27/22 07:35 Dose: 4 mg Ondansetron HCl (Ondansetron 4 Mg/2 Ml Vial) 4 mg IV Q4HP PRN PRN Reason: Nausea And Vomiting Ondansetron HCl (Ondansetron 4 Mg Odt Tablet) 4 mg SL Q4HP PRN; Protocol PRN Reason: Nausea And Vomiting Pantoprazole Sodium ([facility]antoprazole 40 Mg Tablet) [facility] Last Admin: 08/27/22 07:35 Dose: 40 mg Polyethylene Glycol (Polyethylene Glycol 3350 17 Gm Packet) 17 gm PO DAILYP PRN PRN Reason: Constipation Polyethylene Glycol (Polyethylene Glycol 3350 17 Gm Packet) 17 gm PO DAILYP PRN PRN Reason: Constipation Potassium Chloride (Potassium Chloride 20 Meq Tablet) 40 meq PO UD PRN PRN Reason: Potassium Level of 3-3.5 Potassium Chloride (Potassium Chloride 20 Meq Tablet) 40 meq PO UD PRN PRN Reason: Potassium Level < 3 Senna (Sennosides 1 Tablet) 2 tab PO DAILYP PRN PRN Reason: Constipation Senna (Sennosides 1 Tablet) 2 tab PO [facility] Sodium Biphosphate/Sodium Phosphate (Fleets Adult Enema) [address] Q3-4DAYS PRN PRN Reason: Constipation Throat Lozenges (Benzocaine/Menthol 1 Lozenge) 1 lozenge PO PRN PRN PRN Reason: Sore Throat A/P Narrative A/P Narrative: A: *DKA (h/o DM1): -pt states he gets low BG several times per week *AG Met-Acidosis with Severe lactic acidosis: 2/2 above -improved *Fall: 2/2 likely hypoglycemic event *b/l Hip Fxs: 2/2 above, s/p ORIF (08/26) *Rhabdomyolysis: 2/2 above -cpk 1619>>2916 *DEMARIO on CKD II: 2/2 above, improved *Acute anemia: Likely blood loss from bilateral hip fracture site hemorrhage -s/p 2prbc in ED and 2prbc preop *Leukocytosis: Likely reactive, monitor. Patient afebrile, no bandemia. 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 Rodriguez for orthopedic surgery -Continue home Norvasc, hold ACEI/HCTZ for demario and volume depletion and restart as needed -hold statin, held aspirin preop -PT/OT -CM for placement need -ppx: post-op per ortho apixaban Time Spent With Patient Time: Total time spent is greater than 50% in coordination of care (as documented) at patient's floor/unit and/or counseling patient: Subsequent: Total time with patient: 50 - 65 Minutes
[2022-08-27] MEDS: DOCUSATE SODIUM 100 MG CAPSULE PO SCH ×3 (07:52→20:31)
[2022-08-27 07:57] LABS: Creatine Kinase 2916 U/L (24-195)
--- NOTE | 2022-08-27 08:05 | Orthopedic Progress Note ---
SUBJECTIVE Subjective Patient information: Note initiated : 08/27/22 at 8:02 am Service Date, if different from initiated Date: [] Patient: Gagan Olivas 61 y/o M admitted on 08/25/22. Chief Complaint: [s/p biat femur IM hip nail ] Pertinent ROS: 10 points reviewed and are negative except where mentioned Constitutional Vitals: Vital Signs Temp Pulse Resp BP Pulse Ox O2 Del Method O2 Flow Rate 97.8 F 86 16 124/64 93 Room Air 2 08/27/22 04:01 08/27/22 04:01 08/27/22 04:01 08/27/22 04:01 08/27/22 04:01 08/27/22 07:16 08/26/22 23:01 Period Temp Pulse Resp BP Sys/Navarro Pulse Ox O2 Del Method O2 Flow Rate Last 24 Hr 97.2 F-99.3 F 81-119 10-25 95-152/54-80 87-100 Nasal Cannula-Room Air 2-4 Intake and Output 08/26/22 08/27/22 08/27/22 19:59 03:59 11:59 Intake Total 1114 2925 Output Total 675 1200 375 Balance 439 1725 -375 Weight 225 lb 3 oz Intake & Output: Intake & Output 08/26/22 08/27/22 08/27/22 19:59 03:59 11:59 Intake Total 1114 2925 Output Total 675 1200 375 Balance 439 1725 -375 Weight 225 lb 3 oz Intake: IV 789 500 Sodium Chloride 0.9% 1,000 ml @ 665 100 mls/hr IV .Q10H MARCIA Rx#: [id number] Sodium Chloride 0.9% 250 ml @ 74 500 20 mls/hr IV .[id number] MARCIA Rx#: [id number] HumuLIN R 50 UNIT In Sodium 0 Chloride 0.9% 99.5 ml @ 11 UNIT /HR 22 mls/hr IV DUR MARCIA Rx#: [id number] Ancef 2 gm In Dextrose 5% in 50 Water 50 ml @ 100 mls/hr IV PREOP MARCIA Rx#:[id number] Oral 0 Blood Product 325 325 IV - Manual Only 2100 Output: Urine Catheter Amount 675 450 375 Estimated Blood Loss 750 Other: Urine Appearance Clear Clear Clear Sediment Uretheral (Hagan) Clear Urine Color Dark Yellow Yellow Dark Yellow Uretheral (Hagan) Yellow OBJ DATA Labs 08/27/22 05:39 08/27/22 05:39 Labs: Abnormal Lab Results 08/27/22 08/27/22 08/26/22 05:39 05:39 23:36 WBC 13.4 H 16.9 H RBC 2.74 L 3.20 L Hgb 8.3 L 9.6 L Hct 25.2 L 29.3 L POC Hct Plt Count 109 L 127 L Immature Gran % (Auto) 1.4 H Neut % (Auto) 85.8 H 86.5 H Lymph % (Auto) 5.8 L 4.4 L Lymph # (Auto) 0.77 L 0.74 L [place] # (Auto) 1.06 H 1.27 H Seg Neutrophils % Lymphocytes % Immature Gran # 0.07 H 0.23 H Absolute Neutrophils 11.45 H 14.58 H POC PT POC VBG pCO2 at Temp POC VBG pO2 POC VBG HCO3 POC VBG Total CO2 POC Venous O2 Sat POC VBG Base Excess VBG Lactic Acid POC Sodium Sodium POC Chloride Chloride Carbon Dioxide POC Total CO2 Anion Gap POC Anion Gap POC BUN BUN 25 H Creatinine POC Creatinine Glucose 217 H POC Glucose Calcium 7.6 L POC WB Ioniz Calcium Phosphorus 2.0 L GGT 6 L AST 73 H Lactate Dehydrogenase 276 H Total Creatine Kinase 2916 H Total Protein 4.6 L Albumin 2.7 L Globulin 1.9 L Beta-Hydroxybutyrate Urine Glucose (UA) Urine Ketones Hyaline Casts Urine Mucus 08/26/22 08/26/22 08/26/22 05:32 05:27 05:27 WBC 15.3 H RBC 3.11 L Hgb 9.4 L Hct 27.8 L POC Hct Plt Count Immature Gran % (Auto) Neut % (Auto) 82.3 H Lymph % (Auto) 8.3 L Lymph # (Auto) 1.26 L [place] # (Auto) 1.37 H Seg Neutrophils % Lymphocytes % Immature Gran # Absolute Neutrophils 12.58 H POC PT POC VBG pCO2 at Temp POC VBG pO2 POC VBG HCO3 POC VBG Total CO2 POC Venous O2 Sat POC VBG Base Excess VBG Lactic Acid POC Sodium Sodium 132 L POC Chloride Chloride Carbon Dioxide POC Total CO2 Anion Gap 7.0 L POC Anion Gap POC BUN BUN 26 H Creatinine POC Creatinine Glucose 177 H POC Glucose Calcium 7.5 L POC WB Ioniz Calcium Phosphorus GGT 7 L AST 55 H Lactate Dehydrogenase 259 H Total Creatine Kinase 2226 H Total Protein 5.1 L Albumin 2.7 L Globulin Beta-Hydroxybutyrate Urine Glucose (UA) Urine Ketones Hyaline Casts Urine Mucus 08/25/22 08/25/22 08/25/22 20:34 18:00 16:33 WBC RBC Hgb Hct POC Hct Plt Count Immature Gran % (Auto) Neut % (Auto) Lymph % (Auto) Lymph # (Auto) [place] # (Auto) Seg Neutrophils % Lymphocytes % Immature Gran # Absolute Neutrophils POC PT POC VBG pCO2 at Temp 36.7 L 31.3 L POC VBG pO2 POC VBG HCO3 21.0 L 17.4 L POC VBG Total CO2 22.0 L 18.0 L POC Venous O2 Sat POC VBG Base Excess -4.0 L -8.0 L VBG Lactic Acid 4.3 H* 7.4 H* POC Sodium Sodium POC Chloride Chloride Carbon Dioxide POC Total CO2 Anion Gap POC Anion Gap POC BUN BUN Creatinine POC Creatinine Glucose POC Glucose Calcium POC WB Ioniz Calcium Phosphorus GGT AST Lactate Dehydrogenase Total Creatine Kinase Total Protein Albumin Globulin Beta-Hydroxybutyrate Urine Glucose (UA) >=500 A Urine Ketones 20 A Hyaline Casts 8 H Urine Mucus Few A 08/25/22 08/25/22 08/25/22 16:30 15:49 14:44 WBC RBC Hgb Hct POC Hct 26.0 L Plt Count Immature Gran % (Auto) Neut % (Auto) Lymph % (Auto) Lymph # (Auto) [place] # (Auto) Seg Neutrophils % Lymphocytes % Immature Gran # Absolute Neutrophils POC PT 14.8 H POC VBG pCO2 at Temp POC VBG pO2 POC VBG HCO3 POC VBG Total CO2 POC Venous O2 Sat POC VBG Base Excess VBG Lactic Acid POC Sodium 127 L Sodium 126 L POC Chloride 93 L Chloride 93 L Carbon Dioxide 18 L POC Total CO2 15.0 L Anion Gap POC Anion Gap 25.0 H POC BUN 22 H BUN 24 H Creatinine 1.4 H POC Creatinine 1.5 H Glucose 519 H* POC Glucose 623 H* Calcium 7.7 L POC WB Ioniz Calcium 1.01 L Phosphorus 2.1 L GGT AST 45 H Lactate Dehydrogenase 243 H Total Creatine Kinase Total Protein 5.3 L Albumin 3.0 L Globulin Beta-Hydroxybutyrate Urine Glucose (UA) Urine Ketones Hyaline Casts Urine Mucus 08/25/22 08/25/22 08/25/22 14:44 14:40 14:40 WBC 16.9 H RBC 2.84 L Hgb 8.4 L Hct 26.1 L POC Hct Plt Count Immature Gran % (Auto) Neut % (Auto) 89.7 H Lymph % (Auto) 2.4 L Lymph # (Auto) 0.41 L [place] # (Auto) 1.25 H Seg Neutrophils % 84 H Lymphocytes % 4 L Immature Gran # 0.07 H Absolute Neutrophils 15.16 H POC PT POC VBG pCO2 at Temp 28.7 L POC VBG pO2 23 L POC VBG HCO3 14.7 L POC VBG Total CO2 16.0 L POC Venous O2 Sat 36.0 L POC VBG Base Excess -11.0 L VBG Lactic Acid 10.8 H* POC Sodium Sodium POC Chloride Chloride Carbon Dioxide POC Total CO2 Anion Gap POC Anion Gap POC BUN BUN Creatinine POC Creatinine Glucose POC Glucose Calcium POC WB Ioniz Calcium Phosphorus GGT AST Lactate Dehydrogenase Total Creatine Kinase Total Protein Albumin Globulin Beta-Hydroxybutyrate Urine Glucose (UA) Urine Ketones Hyaline Casts Urine Mucus 08/25/22 14:40 WBC RBC Hgb Hct POC Hct Plt Count Immature Gran % (Auto) Neut % (Auto) Lymph % (Auto) Lymph # (Auto) [place] # (Auto) Seg Neutrophils % Lymphocytes % Immature Gran # Absolute Neutrophils POC PT POC VBG pCO2 at Temp POC VBG pO2 POC VBG HCO3 POC VBG Total CO2 POC Venous O2 Sat POC VBG Base Excess VBG Lactic Acid POC Sodium Sodium POC Chloride Chloride Carbon Dioxide POC Total CO2 Anion Gap POC Anion Gap POC BUN BUN Creatinine POC Creatinine Glucose POC Glucose Calcium POC WB Ioniz Calcium Phosphorus GGT AST Lactate Dehydrogenase Total Creatine Kinase 1619 H Total Protein Albumin Globulin Beta-Hydroxybutyrate 0.60 H Urine Glucose (UA) Urine Ketones Hyaline Casts Urine Mucus Meds: Medications Acetaminophen (Acetaminophen 325 Mg Tablet) 650 mg PO Q6HP PRN PRN Reason: fever > 101 Hydrocodone Bitart/Acetaminophen (Hydrocodone/Apap 5/325mg Tablet) 1 tab PO Q4HP PRN PRN Reason: PAIN LEVEL 3-6 Last Admin: 08/26/22 08:14 Dose: 1 tab Hydrocodone Bitart/Acetaminophen (Hydrocodone/Apap 10/325mg Tablet) 0 tab PO Q4HP PRN; Protocol PRN Reason: Per Pain Protocol Last Admin: 08/27/22 04:14 Dose: 2 tab Albuterol/Ipratropium (Ipratropium/Albuterol 3 Ml Ampul.Neb) 3 ml NEB Q4HP PRN PRN Reason: Shortness Of Breath Amlodipine Besylate (Amlodipine 5 Mg Tablet) 5 mg PO DAILY [facility] Last Admin: 08/26/22 08:13 Dose: 5 mg Apixaban (Apixaban 5 Mg Tablet) 2.5 mg PO BID MARCIA Atorvastatin Calcium (Atorvastatin 10 Mg Tablet) 10 mg PO HS [facility] Last Admin: 08/26/22 22:30 Dose: Not Given Bisacodyl (Bisacodyl 10 Mg Supp.Rect) 10 mg IA Q2-3DAYS PRN PRN Reason: Constipation Cefazolin Sodium (Cefazolin 1 Gm Vial) 2 gm IV Q8H [facility]; Protocol Stop: 08/27/22 10:01 Last Admin: 08/27/22 01:33 Dose: 2 gm Diagnostic Test (Pha) (Accu-Chek 1 Each Strip) 1 each FS Q4 MARCIA Last Admin: 08/27/22 07:49 Dose: 1 each Docusate Sodium (Docusate Sodium 100 Mg Capsule) 100 mg PO BID [facility] Last Admin: 08/26/22 22:30 Dose: Not Given Docusate Sodium (Docusate Sodium 100 Mg Capsule) 100 mg PO BID [facility] Last Admin: 08/27/22 07:52 Dose: Not Given Fluoxetine HCl (Fluoxetine Hcl 20 Mg Capsule) 40 mg PO QAM [facility] Last Admin: 08/26/22 08:13 Dose: 40 mg Potassium Chloride 40 meq/ (Dextrose) 520 mls @ 130 mls/hr IV UD PRN PRN Reason: Potassium Level < 3 Magnesium Sulfate (Magnesium Sulfate) 2 gm in 50 mls @ 25 mls/hr IV UD PRN PRN Reason: Magnesium Level </= 1.6 Last Infusion: 08/25/22 23:02 Dose: Infused Insulin Human Regular 50 unit/ (Sodium Chloride) 100 mls @ 22 mls/hr IV DUR [facility]; Protocol Last Titration: 08/26/22 13:51 Dose: Infused Insulin Glargine (Insulin Glargine, Human 1 Unit/0.01 Ml) 19 unit SQ DAILY [facility] Last Admin: 08/26/22 08:09 Dose: Not Given Insulin Human Lispro (Insulin Lispro 1 Unit/0.01 Ml Unit) 0 unit SQ Q4 MARCIA; Protocol Last Admin: 08/27/22 04:06 Dose: 8 unit Magnesium Hydroxide (Magnesium Hydroxide 30 Ml Oral.Susp) 30 ml PO BIDP PRN PRN Reason: Constipation Methocarbamol (Methocarbamol 750 Mg Tablet) 750 mg PO Q6HP PRN PRN Reason: Muscle Spasm Morphine Sulfate (Morphine 4 Mg/Ml Vial) 0 mg IV Q3HP PRN PRN Reason: Pain Last Admin: 08/27/22 01:47 Dose: 4 mg Morphine Sulfate (Morphine 4 Mg/Ml Vial) 0 mg IV Q1HP PRN; Protocol PRN Reason: Per Pain Protocol Last Admin: 08/27/22 07:35 Dose: 4 mg Ondansetron HCl (Ondansetron 4 Mg/2 Ml Vial) 4 mg IV Q4HP PRN PRN Reason: Nausea And Vomiting Ondansetron HCl (Ondansetron 4 Mg Odt Tablet) 4 mg SL Q4HP PRN; Protocol PRN Reason: Nausea And Vomiting Pantoprazole Sodium (Pantoprazole 40 Mg Tablet) 40 mg PO QAMAC [facility] Last Admin: 08/27/22 07:35 Dose: 40 mg Polyethylene Glycol (Polyethylene Glycol 3350 17 Gm Packet) 17 gm PO DAILYP PRN PRN Reason: Constipation Polyethylene Glycol (Polyethylene Glycol 3350 17 Gm Packet) 17 gm PO DAILYP PRN PRN Reason: Constipation Potassium Chloride (Potassium Chloride 20 Meq Tablet) 40 meq PO UD PRN PRN Reason: Potassium Level of 3-3.5 Potassium Chloride (Potassium Chloride 20 Meq Tablet) 40 meq PO UD PRN PRN Reason: Potassium Level < 3 Senna (Sennosides 1 Tablet) 2 tab PO DAILYP PRN PRN Reason: Constipation Senna (Sennosides 1 Tablet) 2 tab PO [facility] Sodium Biphosphate/Sodium Phosphate (Fleets Adult Enema) 1 dose IA Q3-4DAYS PRN PRN Reason: Constipation Sodium Phosphate (Phosphorus 250 Mg Tablet) 250 mg PO BID MARCIA Stop: 08/27/22 21:01 Throat Lozenges (Benzocaine/Menthol 1 Lozenge) 1 lozenge PO PRN PRN PRN Reason: Sore Throat A/P Narrative A/P Narrative: Patient seen and examined this a.m. resting comfortably but arousable, somnolent answers questions appropriately oriented x3. Has some expected postoperative discomfort but feels it is well managed on current regimen Dressings at bilateral lower extremities are clean dry and intact. Some gho sting at right upper dressing, instructed to change at 48-hour jessica. Both lower extremities are warm, well-perfused, neurovascular intact. Lab work notable for anemia hemoglobin 8.3 crit 25. Patient has not yet ambulated or been out of bed to bear weight. Plan is for expected discharge in 2 to 3 days likely to SNF for assistance with rehab and ADLs And follow-up at [facility] in 10 to 14 days. Weightbearing as tolerated with walker/PT for assistance at all times. Pain control PT/OT DVT prophylaxis. Time Spent With Patient Time: Total time spent is greater than 50% in coordination of care (as documented) at patient's floor/unit and/or counseling patient:
[2022-08-27] MEDS ORDERED: 0.9 % SODIUM CHLORIDE 1,000 ML IV SCH (08:15)
--- NOTE | 2022-08-27 09:11 | Operative Note ---
DATE OF OPERATION: 08/26/2022 PREOPERATIVE DIAGNOSES: 1. Intertrochanteric fracture, left hip. 2. Subtrochanteric fracture, right hip. POSTOPERATIVE DIAGNOSES: 1. Intertrochanteric fracture, left hip. 2. Subtrochanteric fracture, right hip. PROCEDURE PERFORMED: 1. Cephalomedullary nailing, left hip. 2. Cephalomedullary nailing, right hip with open reduction and internal fixation. SURGEON: Harsh Rodriguez M.D. [employer] SURGEON: JESUS Lester. The assistance of the PA was required for the safe and efficient completion of the entire case. The expertise and technical skill of this provider was required throughout the case. The PA assisted with preoperative coordination, intraoperative retraction, wound closure, dressing and splint application, as well as postoperative documentation and care coordination. ESTIMATED BLOOD LOSS: 500 mL. IMPLANTS: Left hip Synthes TFNA nail 11 mm x 125 degree titanium cannulated TFNA 235 mm length, Synthes TFNA fenestrated helical blade 10.5 mm, 105 mm length and Synthes locking screw 5 mm x 40 mm length. Right hip Synthes 1.7 mm cable with crimp x2, Synthes 11 x 125 degree titanium cannulated TFNA nail 440 mm right DePuy TFNA fenestrated helical blade 95 mm, DePuy locking screw 5 mm x 50 mm and 5 mm x 46 mm. INDICATIONS FOR PROCEDURE: The patient fell and was unable to ambulate. Radiographs confirmed a displaced intertrochanteric fracture of the left proximal femur and a displaced subtrochanteric fracture of the right proximal femur. The patient was admitted to the hospital and underwent medical clearance. After a long discussion about treatment options, the patient elected to proceed with cephalomedullary nailing. The risks and benefits were discussed with the patient in detail including, but not limited to, the risks of anesthesia, problems with the heart or lungs related to anesthesia, infection, compromise or injury to the nerves and blood vessels, deep venous thrombosis, pulmonary embolism, pneumonia, continued pain after surgery, worsening pain or symptoms after surgery, swelling, loss of motion, malunion, nonunion, leg length discrepancy, and the need for repeat surgery. DESCRIPTION OF PROCEDURE: The patient was seen in preanesthesia waiting room where all questions were answered and the correct side and site were identified and marked. The patient was then brought to the operating room and administered the anesthetic, tranexamic acid, and given preoperative antibiotics. A timeout was then called. The patient was placed on the fracture table with all prominences well-padded. The left leg was brought into traction, adduction, and slight internal rotation. We used C-arm with orthogonal views to confirm anatomic reduction of the fracture. The extremity was prepped and draped in the usual sterile fashion. C-arm was again used to confirm landmarks. A percutaneous incision was created about 4 cm proximal to the greater trochanter. A guide pin was placed into the femoral canal under fluoroscopy after we found the appropriate starting position along the medial border of the trochanter and just anterior to the center position laterally. We placed a protector sleeve proximally and over-reamed with the 17 mm proximal reamer. Next, we changed out the guide pin for a ball-tipped guide satya and placed it into the femoral canal. Position was confirmed with the C-arm. The 235 mm Synthes TFNA nail was then placed with appropriate depth and version using the percutaneous targeting guide. The lateral helical blade sleeve was placed in the targeting guide and a second small percutaneous incision was made to allow the sleeve access to the lateral cortex of the femur. We drilled the guide pin into the center center position of the femoral head confirmed with fluoroscopy. We measured and drilled over the guide pin. The helical blade was then inserted and we compressed the fracture. The targeting sleeve was again used to place a percutaneous 5.0 mm screw distally in the static hole. It was drilled, measured, and placed using C-arm guidance. Traction was removed on the hip. The targeting device was then removed and final radiographs were taken confirming reduction of the fracture and adequate placement of all hardware. We thoroughly irrigated the three percutaneous incisions and closed the deep fascia with 0 Vicryl. We closed the subcutaneous tissue and skin in layers out to stephan in the skin. A sterile pressure dressing was applied. Attention was next turned to the right leg. The right leg was brought into traction, adduction, and slight internal rotation. We used C-arm with orthogonal views to confirm anatomic reduction of the fracture. The extremity was prepped and draped in the usual sterile fashion. C-arm was again used to confirm landmarks. I made a 10 cm incision along the lateral femur at the area of the fracture site. We dissected down through the skin and subcutaneous tissue and mobile windows were created medially and laterally. We split through the IT band and then the vastus lateralis from the inferior surface, taking precaution from the perforators. We came down to the fracture site. We were able to reduce the fracture with a clamp and then placed two 1.7 mm cables securing the fracture anatomically. A percutaneous incision was created about 4 cm proximal to the greater trochanter. A guide pin was placed into the femoral canal under fluoroscopy after we found the appropriate starting position along the medial border of the trochanter and just anterior to the center position laterally. We placed a protector sleeve proximally and over-reamed with the 17 mm proximal reamer. Next, we changed out the guide pin for a ball-tipped guide satya and placed it into the femoral canal. Position was confirmed with the C-arm. We sized the nail at 440 mm and a 440 mm nail was then placed at the appropriate depth and version using the percutaneous targeting guide. The lateral helical blade sleeve was placed in the targeting guide and a second small percutaneous incision was made to allow the sleeve access to the lateral cortex of the femur. We drilled the guide pin into the center center position of the femoral head confirmed with fluoroscopy. We measured and drilled over the guide pin. The helical blade was then inserted and we compressed the fracture. A perfect elim ira technique distally at the femur was used to place percutaneous 5 mm screws distally into the static hole and the dynamic hole. It was drilled, measured, and placed using C-arm guidance. Traction was removed on the hip. The targeting device was then removed and final radiographs were taken confirming reduction of the fracture and adequate placement of all hardware. We thoroughly irrigated the three percutaneous incisions and closed the deep fascia with 0 Vicryl. We closed the subcutaneous tissue and skin in layers out to stephan in the skin. A sterile pressure dressing was applied. All needle and sponge counts were correct. The patient was transferred to the recovery room in stable condition. DEBBIE:darya Job ID: [id number] Doc ID: [id number] Harsh Rodriguez MD
[2022-08-27] MEDS: INSULIN GLARGINE, HUMAN 1 UNIT/0.01 ML SQ SCH (09:14)
[2022-08-27] MEDS: amLODIPine 5 MG TABLET PO SCH (09:22)
[2022-08-27] MEDS: PHOSPHORUS 250 MG TABLET PO SCH ×2 (09:23→20:31)
[2022-08-27] MEDS: FLUoxetine HCL 20 MG CAPSULE PO SCH (09:23)
[2022-08-27] MEDS: METHOCARBAMOL 750 MG TABLET PO PRN ×2 (09:23→20:31)
[2022-08-27] MEDS ORDERED: ACETAMINOPHEN 650 MG/65 ML BAG IV PRN (10:03)
[2022-08-27] MEDS: APIXABAN 5 MG TABLET PO SCH ×2 (10:40→20:31)
[2022-08-27] MEDS: SENNOSIDES 1 TABLET PO SCH (20:31)
[2022-08-28] MEDS: morphine 4 MG/ML VIAL IV PRN ×4 (01:40→22:11)
[2022-08-28] MEDS: HYDROcodone/APAP 10/325MG TABLET PO PRN ×5 (02:35→23:39)
[2022-08-28] MEDS: METHOCARBAMOL 750 MG TABLET PO PRN ×3 (02:41→19:15)
[2022-08-28 06:57] LABS: Basophils # (Auto) 0.01 K/mcL (0.00-0.30); Basophils % (Auto) 0.1 % (0.0-2.0); Eosinophils # (Auto) 0.03 K/mcL (0.00-0.70); Eosinophils % (Auto) 0.3 % (0.0-7.0); Hematocrit 20.9 % (40.1-51.0); Lymphocytes % (Auto) 19.7 % (15.5-49.0); Mean Cell Volume 91.7 fL (80.0-100.0); Mean Corpuscular HGB Conc 33.5 g/dL (31.0-36.0); Mean Platelet Volume 10.2 fL (8.8-12.5); Monocytes # (Auto) 0.92 K/mcL (0.10-0.90); Neutrophils % (Auto) 70.1 % (38.0-78.0); Platelet Count 128 K/mcL (140-440); RBC 2.28 M/mcL (4.63-6.08); Red Cell Distribution Width 13.2 % (11.5-14.5); WBC 10.2 K/mcL (4.5-11.0)
[2022-08-28 07:06] LABS: ALT/SGPT 27 U/L (<40); AST/SGOT 94 U/L (<40); Albumin 2.1 gm/dL (3.2-5.2); Alkaline Phosphatase 40 U/L (39-117); Bilirubin,Direct < 0.2 mg/dL (0-0.3); Bilirubin,Total 0.5 mg/dL (0.1-1.0); Blood Urea Nitrogen 17 mg/dL (8-23); Calcium 7.1 mg/dL (8.6-10.4); Carbon Dioxide 28 mmol/L (22-30); Chloride 103 mmol/L (96-108); Globulin 2.2 gm/dL (2.2-3.7); Glomerular Filtration Rate 95; Glucose 105 mg/dL (70-105); Lactate Dehydrogenase 288 U/L (135-225); Phosphorous 2.1 mg/dL (2.5-4.5); Triglycerides 99 mg/dL (<150); Uric Acid 3.9 mg/dL (2.5-8.0)
--- NOTE | 2022-08-28 07:39 | Orthopedic Progress Note ---
SUBJECTIVE Subjective Patient information: Note initiated : 08/28/22 at 7:36 am Service Date, if different from initiated Date: [] Patient: Gagan Olivas 61 y/o M admitted on 08/25/22. Chief Complaint: [] Principal diagnosis: Bilateral hip fxs Constitutional Vitals: Vital Signs Temp Pulse Resp BP Pulse Ox O2 Del Method O2 Flow Rate 98.1 F 89 17 114/58 95 Nasal Cannula 2 08/28/22 04:01 08/28/22 04:01 08/28/22 04:01 08/28/22 04:01 08/28/22 04:01 08/28/22 04:01 08/28/22 04:01 Period Temp Pulse Resp BP Sys/Navarro Pulse Ox O2 Del Method O2 Flow Rate Last 24 Hr 97.1 F-98.4 F 89-110 - 105-128/49-80 91-95 Nasal Cannula- Room Air 2 Intake and Output 08/27/22 08/28/22 08/28/22 19:59 03:59 11:59 Intake Total 1180 1960 Output Total 950 900 400 Balance 230 1060 -400 Weight 225 lb 3 oz 226 lb 4 oz Intake & Output: Intake & Output 08/27/22 08/28/22 08/28/22 19:59 03:59 11:59 Intake Total 1180 1960 Output Total 950 900 400 Balance 230 1060 -400 Weight 225 lb 3 oz 226 lb 4 oz Intake: IV 1000 Sodium Chloride 0.9% 1,000 ml @ 1000 84 mls/hr IV .[id number] [facility] Rx#: [id number] Oral 1180 960 Output: Urine Catheter Amount 950 900 400 Other: Meal Dinner Percent of Meal Consumed 100% Feeding Ability Independent Urine Appearance Clear Clear Urine Color Bright Yellow Yellow Dark Yellow Urine Odor Normal Additional findings Additional findings: R hip: Mild bloody drainage, NVI-distal L hip: Bandages c/d/i, NVI-distal OBJ DATA Labs 08/28/22 05:51 08/28/22 05:51 Labs: Abnormal Lab Results 08/28/22 08/28/22 08/27/22 05:51 05:51 05:39 WBC RBC 2.28 L Hgb 7.0 L* Hct 20.9 L* POC Hct Plt Count 128 L Immature Gran % (Auto) 0.8 H Neut % (Auto) Lymph % (Auto) Lymph # (Auto) Barton # (Auto) 0.92 H Seg Neutrophils % Lymphocytes % Immature Gran # 0.08 H Absolute Neutrophils POC PT POC VBG pCO2 at Temp POC VBG pO2 POC VBG HCO3 POC VBG Total CO2 POC Venous O2 Sat POC VBG Base Excess VBG Lactic Acid POC Sodium Sodium POC Chloride Chloride Carbon Dioxide POC Total CO2 Anion Gap 4.0 L POC Anion Gap POC BUN BUN 25 H Creatinine POC Creatinine Glucose 217 H POC Glucose Calcium 7.1 L 7.6 L POC WB Ioniz Calcium Phosphorus 2.1 L 2.0 L GGT 6 L 6 L AST 94 H 73 H Lactate Dehydrogenase 288 H 276 H Total Creatine Kinase 2916 H Total Protein 4.3 L 4.6 L Albumin 2.1 L 2.7 L Globulin 1.9 L Beta-Hydroxybutyrate Urine Glucose (UA) Urine Ketones Hyaline Casts Urine Mucus 08/27/22 08/26/22 08/26/22 05:39 23:36 05:32 WBC 13.4 H 16.9 H RBC 2.74 L 3.20 L Hgb 8.3 L 9.6 L Hct 25.2 L 29.3 L POC Hct Plt Count 109 L 127 L Immature Gran % (Auto) 1.4 H Neut % (Auto) 85.8 H 86.5 H Lymph % (Auto) 5.8 L 4.4 L Lymph # (Auto) 0.77 L 0.74 L Barton # (Auto) 1.06 H 1.27 H Seg Neutrophils % Lymphocytes % Immature Gran # 0.07 H 0.23 H Absolute Neutrophils 11.45 H 14.58 H POC PT POC VBG pCO2 at Temp POC VBG pO2 POC VBG HCO3 POC VBG Total CO2 POC Venous O2 Sat POC VBG Base Excess VBG Lactic Acid POC Sodium Sodium POC Chloride Chloride Carbon Dioxide POC Total CO2 Anion Gap POC Anion Gap POC BUN BUN Creatinine POC Creatinine Glucose POC Glucose Calcium POC WB Ioniz Calcium Phosphorus GGT AST Lactate Dehydrogenase Total Creatine Kinase 2226 H Total Protein Albumin Globulin Beta-Hydroxybutyrate Urine Glucose (UA) Urine Ketones Hyaline Casts Urine Mucus 08/26/22 08/26/22 08/25/22 05:27 05:27 20:34 WBC 15.3 H RBC 3.11 L Hgb 9.4 L Hct 27.8 L POC Hct Plt Count Immature Gran % (Auto) Neut % (Auto) 82.3 H Lymph % (Auto) 8.3 L Lymph # (Auto) 1.26 L Barton # (Auto) 1.37 H Seg Neutrophils % Lymphocytes % Immature Gran # Absolute Neutrophils 12.58 H POC PT POC VBG pCO2 at Temp 36.7 L POC VBG pO2 POC VBG HCO3 21.0 L POC VBG Total CO2 22.0 L POC Venous O2 Sat POC VBG Base Excess -4.0 L VBG Lactic Acid 4.3 H* POC Sodium Sodium 132 L POC Chloride Chloride Carbon Dioxide POC Total CO2 Anion Gap 7.0 L POC Anion Gap POC BUN BUN 26 H Creatinine POC Creatinine Glucose 177 H POC Glucose Calcium 7.5 L POC WB Ioniz Calcium Phosphorus GGT 7 L AST 55 H Lactate Dehydrogenase 259 H Total Creatine Kinase Total Protein 5.1 L Albumin 2.7 L Globulin Beta-Hydroxybutyrate Urine Glucose (UA) Urine Ketones Hyaline Casts Urine Mucus 08/25/22 08/25/22 08/25/22 18:00 16:33 16:30 WBC RBC Hgb Hct POC Hct Plt Count Immature Gran % (Auto) Neut % (Auto) Lymph % (Auto) Lymph # (Auto) Barton # (Auto) Seg Neutrophils % Lymphocytes % Immature Gran # Absolute Neutrophils POC PT POC VBG pCO2 at Temp 31.3 L POC VBG pO2 POC VBG HCO3 17.4 L POC VBG Total CO2 18.0 L POC Venous O2 Sat POC VBG Base Excess -8.0 L VBG Lactic Acid 7.4 H* POC Sodium Sodium 126 L POC Chloride Chloride 93 L Carbon Dioxide 18 L POC Total CO2 Anion Gap POC Anion Gap POC BUN BUN 24 H Creatinine 1.4 H POC Creatinine Glucose 519 H* POC Glucose Calcium 7.7 L POC WB Ioniz Calcium Phosphorus 2.1 L GGT AST 45 H Lactate Dehydrogenase 243 H Total Creatine Kinase Total Protein 5.3 L Albumin 3.0 L Globulin Beta-Hydroxybutyrate Urine Glucose (UA) >=500 A Urine Ketones 20 A Hyaline Casts 8 H Urine Mucus Few A 08/25/22 08/25/22 08/25/22 15:49 14:44 14:44 WBC RBC Hgb Hct POC Hct 26.0 L Plt Count Immature Gran % (Auto) Neut % (Auto) Lymph % (Auto) Lymph # (Auto) Barton # (Auto) Seg Neutrophils % Lymphocytes % Immature Gran # Absolute Neutrophils POC PT 14.8 H POC VBG pCO2 at Temp 28.7 L POC VBG pO2 23 L POC VBG HCO3 14.7 L POC VBG Total CO2 16.0 L POC Venous O2 Sat 36.0 L POC VBG Base Excess -11.0 L VBG Lactic Acid 10.8 H* POC Sodium 127 L Sodium POC Chloride 93 L Chloride Carbon Dioxide POC Total CO2 15.0 L Anion Gap POC Anion Gap 25.0 H POC BUN 22 H BUN Creatinine POC Creatinine 1.5 H Glucose POC Glucose 623 H* Calcium POC WB Ioniz Calcium 1.01 L Phosphorus GGT AST Lactate Dehydrogenase Total Creatine Kinase Total Protein Albumin Globulin Beta-Hydroxybutyrate Urine Glucose (UA) Urine Ketones Hyaline Casts Urine Mucus 08/25/22 08/25/22 08/25/22 14:40 14:40 14:40 WBC 16.9 H RBC 2.84 L Hgb 8.4 L Hct 26.1 L POC Hct Plt Count Immature Gran % (Auto) Neut % (Auto) 89.7 H Lymph % (Auto) 2.4 L Lymph # (Auto) 0.41 L Barton # (Auto) 1.25 H Seg Neutrophils % 84 H Lymphocytes % 4 L Immature Gran # 0.07 H Absolute Neutrophils 15.16 H POC PT POC VBG pCO2 at Temp POC VBG pO2 POC VBG HCO3 POC VBG Total CO2 POC Venous O2 Sat POC VBG Base Excess VBG Lactic Acid POC Sodium Sodium POC Chloride Chloride Carbon Dioxide POC Total CO2 Anion Gap POC Anion Gap POC BUN BUN Creatinine POC Creatinine Glucose POC Glucose Calcium POC WB Ioniz Calcium Phosphorus GGT AST Lactate Dehydrogenase Total Creatine Kinase 1619 H Total Protein Albumin Globulin Beta-Hydroxybutyrate 0.60 H Urine Glucose (UA) Urine Ketones Hyaline Casts Urine Mucus Meds: Medications Acetaminophen (Acetaminophen 325 Mg Tablet) 650 mg PO Q6HP PRN PRN Reason: fever > 101 Hydrocodone Bitart/Acetaminophen (Hydrocodone/Apap 10/325mg Tablet) 0 tab PO Q4HP PRN; Protocol PRN Reason: Per Pain Protocol Last Admin: 08/28/22 02:35 Dose: 2 tab Albuterol/Ipratropium (Ipratropium/Albuterol 3 Ml Ampul.Neb) 3 ml NEB Q4HP PRN PRN Reason: Shortness Of Breath Amlodipine Besylate (Amlodipine 5 Mg Tablet) 5 mg PO DAILY [facility] Last Admin: 08/27/22 09:22 Dose: 5 mg Apixaban (Apixaban 5 Mg Tablet) 2.5 mg PO BID [facility] Last Admin: 08/27/22 20:31 Dose: 2.5 mg Bisacodyl (Bisacodyl 10 Mg Supp.Rect) 10 mg [place] Q2-3DAYS PRN PRN Reason: Constipation Diagnostic Test (Pha) (Accu-Chek 1 Each Strip) 1 each FS ACHS [facility] Last Admin: 08/27/22 20:41 Dose: 1 each Docusate Sodium (Docusate Sodium 100 Mg Capsule) 100 mg PO BID [facility] Last Admin: 08/27/22 20:31 Dose: 100 mg Fluoxetine HCl (Fluoxetine Hcl 20 Mg Capsule) 40 mg PO QAM [facility] Last Admin: 08/27/22 09:23 Dose: 40 mg Potassium Chloride 40 meq/ (Dextrose) 520 mls @ 130 mls/hr IV UD PRN PRN Reason: Potassium Level < 3 Magnesium Sulfate (Magnesium Sulfate) 2 gm in 50 mls @ 25 mls/hr IV UD PRN PRN Reason: Magnesium Level </= 1.6 Last Infusion: 08/25/22 23:02 Dose: Infused Acetaminophen (Ofirmev) 650 mg in 65 mls @ 130 mls/hr IV Q6HP PRN; Protocol PRN Reason: PAIN/FEVER > 101 Last Infusion: 08/27/22 11:15 Dose: Infused Sodium Chloride (Sodium Chloride 0.9%) 250 mls @ 20 mls/hr IV .[id number] [facility] Stop: 08/28/22 20:14 Insulin Glargine (Insulin Glargine, Human 1 Unit/0.01 Ml) 19 unit SQ DAILY [facility] Last Admin: 08/27/22 09:14 Dose: 19 units Insulin Human Lispro (Insulin Lispro 1 Unit/0.01 Ml Unit) 0 unit SQ [facility]; Protocol Last Admin: 08/27/22 20:41 Dose: 8 units Magnesium Hydroxide (Magnesium Hydroxide 30 Ml Oral.Susp) 30 ml PO BIDP PRN PRN Reason: Constipation Methocarbamol (Methocarbamol 750 Mg Tablet) 750 mg PO Q6HP PRN PRN Reason: Muscle Spasm Last Admin: 08/28/22 02:41 Dose: 750 mg Morphine Sulfate (Morphine 4 Mg/Ml Vial) 0 mg IV Q1HP PRN; Protocol PRN Reason: Per Pain Protocol Last Admin: 08/28/22 01:40 Dose: 4 mg Ondansetron HCl (Ondansetron 4 Mg Odt Tablet) 4 mg SL Q4HP PRN; Protocol PRN Reason: Nausea And Vomiting Pantoprazole Sodium (Pantoprazole 40 Mg Tablet) 40 mg PO QAMAC [facility] Last Admin: 08/27/22 07:35 Dose: 40 mg Polyethylene Glycol (Polyethylene Glycol 3350 17 Gm Packet) 17 gm PO DAILYP PRN PRN Reason: Constipation Potassium Chloride (Potassium Chloride 20 Meq Tablet) 40 meq PO UD PRN PRN Reason: Potassium Level of 3-3.5 Potassium Chloride (Potassium Chloride 20 Meq Tablet) 40 meq PO UD PRN PRN Reason: Potassium Level < 3 Senna (Sennosides 1 Tablet) 2 tab PO DAILYP PRN PRN Reason: Constipation Senna (Sennosides 1 Tablet) 2 tab PO HS [facility] Last Admin: 08/27/22 20:31 Dose: 2 tab Sodium Biphosphate/Sodium Phosphate (Fleets Adult Enema) 1 dose [place] Q3-4DAYS PRN PRN Reason: Constipation Throat Lozenges (Benzocaine/Menthol 1 Lozenge) 1 lozenge PO PRN PRN PRN Reason: Sore Throat A/P Assessment and plan (1) Bilateral closed hip fractures: Status: Acute Qualifiers: Encounter type: initial encounter Qualified Code(s): S72.001A - Fracture of unspecified part of neck of right femur, initial encounter for closed fracture; S72.002A - Fracture of unspecified part of neck of left femur, initial encounter for closed fracture Plan Mobilize with PT Sign out Ortho service f/u 2 weeks at [facility]. may change bandages to Mepelix prior to discharge. Time Spent With Patient Time: Total time spent is greater than 50% in coordination of care (as documented) at patient's floor/unit and/or counseling patient: Subsequent: Total time with patient: Less than 25 minutes
[2022-08-28] MEDS ORDERED: 0.9 % SODIUM CHLORIDE 250 ML IV SCH (07:45)
[2022-08-28] MEDS: INSULIN LISPRO 1 UNIT/0.01 ML UNIT SQ SCH ×4 (08:04→20:49)
--- NOTE | 2022-08-28 08:21 | Internal Med Progress Note ---
SUBJECTIVE Subjective Patient information: Note initiated : 08/28/22 at 8:14 am Service Date, if different from initiated Date: [] Patient: Gagan Olivas 61 y/o M admitted on 08/25/22. Chief Complaint: [] Principal diagnosis: Bilateral hip fxs Interval history: History of present illness: Mr. Olivas is a 61 year old M Presents the ED after fall and has been on the floor all night. Patient has diabetes type 1 and administer his own insulin. He has a Dexcom that read low last night but does not have an actual number. He says his blood sugars get low several times a week. He believes that around the time his blood glucose dropped last night is when he fell. He then got up and walked over to another part of the floor and lay down again. Then it sounds like in the calender let off operator hours he got back up and fell again. He never called any family members, remaining on the floor until his mom came in at around 1230 and found him on the floor. Patient complained of bilateral hip pain. Patient states he was in his normal state of health until last night. Patient states he is takes 16 units of long-acting insulin each morning and then short acting with each meal. Noted to have bilateral hip pain. No LOC or hitting his head. Today's blood glucose read as high. In the ED patient found to have bilateral hip fractures for which Dr. Rodriguez was contacted. Patient also found to be in DKA. Patient started on IV fluids and insulin drip. Also found to be quite anemic 8.4 with a baseline hemoglobin ~14.0. Likely secondary to bleeding from bilateral hip fractures. 2 units of blood ordered in ED. Leukocytosis noted but patient afebrile. Chest x-ray unremarkable. UA pending. CPK was noted to be 1619 and lactate was elevated at 10.8 with repeat after 1.3L's showing 7.4 Also found to have acute kidney injury with a creatinine of 1.5 on [id number]. Vital signs showed tachycardia in the 110s with remaining vital signs stable. He did have some nausea when EMS was calling about. But denied any headaches fever chills chest pain shortness of breath 08/26 Patient feeling a little better today. Not as somnolent. Anion gap closed and will transition to subcu insulin. CPK increased today and will continue IV fluids and monitor. Leukocytosis but patient afebrile, suspect reactive but mon itoring closely. Severe lactic acidosis resolved. Pain not quite controlled and will increase as needed IV morphine. 08/27 Patient had bilateral hip ORIF yesterday. Does have some discomfort in hips but better than before. Leukocytosis improving. CPK increasing. IV fluids today and continue monitoring. Monitor for hypoglycemia as well on home regimen insulin. 08/28 patient says he still feels pretty weak and sore. Hemoglobin down to 7.0. Imaging for occult bleeding hematomas around him at home is around fracture sites pending. Hold anticoagulation today. CPK continuing to rise. Review of Systems: Pertinent positive as above. Denies headache/fever/chills/vomiting/chest or a bdominal pain/cough/dyspnea/diarrhea. Remaining 10 point review system reviewed negative PHYSICAL EXAM General: Alert, Awake, No acute Distress, obese Eyes/N/T: EOMI, no scleral icterus, Head/Neck: neck supple, full ROM, CV: RRR, No murmurs, Pulm: Clear b/l, no wheezing/rhonchi/rales, no respiratory distress Abd: soft, nontender, +BS x4. patient has ecchymosis over the right flank ar ea as well as groin area Ext: no clubbing/cyanosis, trace b/l LE edema, nontender. bilateral hip dressings Neuro: Alert, no focal deficits, , sensations intact b/l upper/lower Psychiatric: Skin: warm/dry, normal color Constitutional Vitals: Vital Signs Temp Pulse Resp BP Pulse Ox O2 Del Method O2 Flow Rate 98.1 F 89 17 114/58 95 Nasal Cannula 2 08/28/22 04:01 08/28/22 04:01 08/28/22 04:01 08/28/22 04:01 08/28/22 04:01 08/28/22 04:01 08/28/22 04:01 Period Temp Pulse Resp BP Sys/Navarro Pulse Ox O2 Del Method O2 Flow Rate Last 24 Hr 97.1 F-98.4 F 89-104 17-28 105-128/49-80 91-95 Nasal Cannula- Room Air 2 Intake and Output 08/27/22 08/28/22 08/28/22 19:59 03:59 11:59 Intake Total 1180 1960 Output Total 950 900 400 Balance 230 1060 -400 Weight 102.143 kg 102.625 kg Intake & Output: Intake & Output 08/27/22 08/28/22 08/28/22 19:59 03:59 11:59 Intake Total 1180 1960 Output Total 950 900 400 Balance 230 1060 -400 Weight 102.143 kg 102.625 kg Intake: IV 1000 Sodium Chloride 0.9% 1,000 ml @ 1000 84 mls/hr IV .[id number] [facility] Rx#: [id number] Oral 1180 960 Output: Urine Catheter Amount 950 900 400 Other: Meal Dinner Percent of Meal Consumed 100% Feeding Ability Independent Urine Appearance Clear Clear Urine Color Bright Yellow Yellow Dark Yellow Urine Odor Normal OBJ DATA Labs 08/28/22 05:51 08/28/22 05:51 Labs: Abnormal Lab Results 08/28/22 08/28/22 08/27/22 05:51 05:51 05:39 WBC RBC 2.28 L Hgb 7.0 L* Hct 20.9 L* POC Hct Plt Count 128 L Immature Gran % (Auto) 0.8 H Neut % (Auto) Lymph % (Auto) Lymph # (Auto) [place] # (Auto) 0.92 H Seg Neutrophils % Lymphocytes % Immature Gran # 0.08 H Absolute Neutrophils POC PT POC VBG pCO2 at Temp POC VBG pO2 POC VBG HCO3 POC VBG Total CO2 POC Venous O2 Sat POC VBG Base Excess VBG Lactic Acid POC Sodium Sodium POC Chloride Chloride Carbon Dioxide POC Total CO2 Anion Gap 4.0 L POC Anion Gap POC BUN BUN 25 H Creatinine POC Creatinine Glucose 217 H POC Glucose Calcium 7.1 L 7.6 L POC WB Ioniz Calcium Phosphorus 2.1 L 2.0 L GGT 6 L 6 L AST 94 H 73 H Lactate Dehydrogenase 288 H 276 H Total Creatine Kinase 2916 H Total Protein 4.3 L 4.6 L Albumin 2.1 L 2.7 L Globulin 1.9 L Beta-Hydroxybutyrate Urine Glucose (UA) Urine Ketones Hyaline Casts Urine Mucus 08/27/22 08/26/22 08/26/22 05:39 23:36 05:32 WBC 13.4 H 16.9 H RBC 2.74 L 3.20 L Hgb 8.3 L 9.6 L Hct 25.2 L 29.3 L POC Hct Plt Count 109 L 127 L Immature Gran % (Auto) 1.4 H Neut % (Auto) 85.8 H 86.5 H Lymph % (Auto) 5.8 L 4.4 L Lymph # (Auto) 0.77 L 0.74 L [place] # (Auto) 1.06 H 1.27 H Seg Neutrophils % Lymphocytes % Immature Gran # 0.07 H 0.23 H Absolute Neutrophils 11.45 H 14.58 H POC PT POC VBG pCO2 at Temp POC VBG pO2 POC VBG HCO3 POC VBG Total CO2 POC Venous O2 Sat POC VBG Base Excess VBG Lactic Acid POC Sodium Sodium POC Chloride Chloride Carbon Dioxide POC Total CO2 Anion Gap POC Anion Gap POC BUN BUN Creatinine POC Creatinine Glucose POC Glucose Calcium POC WB Ioniz Calcium Phosphorus GGT AST Lactate Dehydrogenase Total Creatine Kinase 2226 H Total Protein Albumin Globulin Beta-Hydroxybutyrate Urine Glucose (UA) Urine Ketones Hyaline Casts Urine Mucus 08/26/22 08/26/22 08/25/22 05:27 05:27 20:34 WBC 15.3 H RBC 3.11 L Hgb 9.4 L Hct 27.8 L POC Hct Plt Count Immature Gran % (Auto) Neut % (Auto) 82.3 H Lymph % (Auto) 8.3 L Lymph # (Auto) 1.26 L [place] # (Auto) 1.37 H Seg Neutrophils % Lymphocytes % Immature Gran # Absolute Neutrophils 12.58 H POC PT POC VBG pCO2 at Temp 36.7 L POC VBG pO2 POC VBG HCO3 21.0 L POC VBG Total CO2 22.0 L POC Venous O2 Sat POC VBG Base Excess -4.0 L VBG Lactic Acid 4.3 H* POC Sodium Sodium 132 L POC Chloride Chloride Carbon Dioxide POC Total CO2 Anion Gap 7.0 L POC Anion Gap POC BUN BUN 26 H Creatinine POC Creatinine Glucose 177 H POC Glucose Calcium 7.5 L POC WB Ioniz Calcium Phosphorus GGT 7 L AST 55 H Lactate Dehydrogenase 259 H Total Creatine Kinase Total Protein 5.1 L Albumin 2.7 L Globulin Beta-Hydroxybutyrate Urine Glucose (UA) Urine Ketones Hyaline Casts Urine Mucus 08/25/22 08/25/22 08/25/22 18:00 16:33 16:30 WBC RBC Hgb Hct POC Hct Plt Count Immature Gran % (Auto) Neut % (Auto) Lymph % (Auto) Lymph # (Auto) [place] # (Auto) Seg Neutrophils % Lymphocytes % Immature Gran # Absolute Neutrophils POC PT POC VBG pCO2 at Temp 31.3 L POC VBG pO2 POC VBG HCO3 17.4 L POC VBG Total CO2 18.0 L POC Venous O2 Sat POC VBG Base Excess -8.0 L VBG Lactic Acid 7.4 H* POC Sodium Sodium 126 L POC Chloride Chloride 93 L Carbon Dioxide 18 L POC Total CO2 Anion Gap POC Anion Gap POC BUN BUN 24 H Creatinine 1.4 H POC Creatinine Glucose 519 H* POC Glucose Calcium 7.7 L POC WB Ioniz Calcium Phosphorus 2.1 L GGT AST 45 H Lactate Dehydrogenase 243 H Total Creatine Kinase Total Protein 5.3 L Albumin 3.0 L Globulin Beta-Hydroxybutyrate Urine Glucose (UA) >=500 A Urine Ketones 20 A Hyaline Casts 8 H Urine Mucus Few A 08/25/22 08/25/22 08/25/22 15:49 14:44 14:44 WBC RBC Hgb Hct POC Hct 26.0 L Plt Count Immature Gran % (Auto) Neut % (Auto) Lymph % (Auto) Lymph # (Auto) [place] # (Auto) Seg Neutrophils % Lymphocytes % Immature Gran # Absolute Neutrophils POC PT 14.8 H POC VBG pCO2 at Temp 28.7 L POC VBG pO2 23 L POC VBG HCO3 14.7 L POC VBG Total CO2 16.0 L POC Venous O2 Sat 36.0 L POC VBG Base Excess -11.0 L VBG Lactic Acid 10.8 H* POC Sodium 127 L Sodium POC Chloride 93 L Chloride Carbon Dioxide POC Total CO2 15.0 L Anion Gap POC Anion Gap 25.0 H POC BUN 22 H BUN Creatinine POC Creatinine 1.5 H Glucose POC Glucose 623 H* Calcium POC WB Ioniz Calcium 1.01 L Phosphorus GGT AST Lactate Dehydrogenase Total Creatine Kinase Total Protein Albumin Globulin Beta-Hydroxybutyrate Urine Glucose (UA) Urine Ketones Hyaline Casts Urine Mucus 08/25/22 08/25/22 08/25/22 14:40 14:40 14:40 WBC 16.9 H RBC 2.84 L Hgb 8.4 L Hct 26.1 L POC Hct Plt Count Immature Gran % (Auto) Neut % (Auto) 89.7 H Lymph % (Auto) 2.4 L Lymph # (Auto) 0.41 L [place] # (Auto) 1.25 H Seg Neutrophils % 84 H Lymphocytes % 4 L Immature Gran # 0.07 H Absolute Neutrophils 15.16 H POC PT POC VBG pCO2 at Temp POC VBG pO2 POC VBG HCO3 POC VBG Total CO2 POC Venous O2 Sat POC VBG Base Excess VBG Lactic Acid POC Sodium Sodium POC Chloride Chloride Carbon Dioxide POC Total CO2 Anion Gap POC Anion Gap POC BUN BUN Creatinine POC Creatinine Glucose POC Glucose Calcium POC WB Ioniz Calcium Phosphorus GGT AST Lactate Dehydrogenase Total Creatine Kinase 1619 H Total Protein Albumin Globulin Beta-Hydroxybutyrate 0.60 H Urine Glucose (UA) Urine Ketones Hyaline Casts Urine Mucus Meds: Medications Acetaminophen (Acetaminophen 325 Mg Tablet) 650 mg PO Q6HP PRN PRN Reason: fever > 101 Hydrocodone Bitart/Acetaminophen (Hydrocodone/Apap 10/325mg Tablet) 0 tab PO Q4HP PRN; Protocol PRN Reason: Per Pain Protocol Last Admin: 08/28/22 08:03 Dose: 2 tab Albuterol/Ipratropium (Ipratropium/Albuterol 3 Ml Ampul.Neb) 3 ml NEB Q4HP PRN PRN Reason: Shortness Of Breath Amlodipine Besylate (Amlodipine 5 Mg Tablet) 5 mg PO DAILY [facility] Last Admin: 08/27/22 09:22 Dose: 5 mg Apixaban (Apixaban 5 Mg Tablet) 2.5 mg PO BID [facility] Last Admin: 08/27/22 20:31 Dose: 2.5 mg Bisacodyl (Bisacodyl 10 Mg Supp.Rect) 10 mg GA Q2-3DAYS PRN PRN Reason: Constipation Diagnostic Test (Pha) (Accu-Chek 1 Each Strip) 1 each FS ACHS [facility] Last Admin: 08/28/22 08:03 Dose: 1 each Docusate Sodium (Docusate Sodium 100 Mg Capsule) 100 mg PO BID [facility] Last Admin: 08/27/22 20:31 Dose: 100 mg Fluoxetine HCl (Fluoxetine Hcl 20 Mg Capsule) 40 mg PO QAM [facility] Last Admin: 08/27/22 09:23 Dose: 40 mg Potassium Chloride 40 meq/ (Dextrose) 520 mls @ 130 mls/hr IV UD PRN PRN Reason: Potassium Level < 3 Magnesium Sulfate (Magnesium Sulfate) 2 gm in 50 mls @ 25 mls/hr IV UD PRN PRN Reason: Magnesium Level </= 1.6 Last Infusion: 08/25/22 23:02 Dose: Infused Acetaminophen (Ofirmev) 650 mg in 65 mls @ 130 mls/hr IV Q6HP PRN; Protocol PRN Reason: PAIN/FEVER > 101 Last Infusion: 08/27/22 11:15 Dose: Infused Sodium Chloride (Sodium Chloride 0.9%) 250 mls @ 20 mls/hr IV .[id number] [facility] Stop: 08/28/22 20:14 Last Admin: 08/28/22 08:03 Dose: 20 mls/hr Insulin Glargine (Insulin Glargine, Human 1 Unit/0.01 Ml) 19 unit SQ DAILY [facility] Last Admin: 08/27/22 09:14 Dose: 19 units Insulin Human Lispro (Insulin Lispro 1 Unit/0.01 Ml Unit) 0 unit SQ ACHS [facility]; Protocol Last Admin: 08/28/22 08:04 Dose: Not Given Magnesium Hydroxide (Magnesium Hydroxide 30 Ml Oral.Susp) 30 ml PO BIDP PRN PRN Reason: Constipation Methocarbamol (Methocarbamol 750 Mg Tablet) 750 mg PO Q6HP PRN PRN Reason: Muscle Spasm Last Admin: 08/28/22 02:41 Dose: 750 mg Morphine Sulfate (Morphine 4 Mg/Ml Vial) 0 mg IV Q1HP PRN; Protocol PRN Reason: Per Pain Protocol Last Admin: 08/28/22 01:40 Dose: 4 mg Ondansetron HCl (Ondansetron 4 Mg Odt Tablet) 4 mg SL Q4HP PRN; Protocol PRN Reason: Nausea And Vomiting Pantoprazole S[facility] ([facility] 40 Mg [facility]) [facility] Last Admin: 08/27/22 07:35 Dose: 40 mg Polyethylene Glycol (Polyethylene Glycol 3350 17 Gm Packet) 17 gm PO DAILYP PRN PRN Reason: Constipation Potassium Chloride (Potassium Chloride 20 Meq Tablet) 40 meq PO UD PRN PRN Reason: Potassium Level of 3-3.5 Potassium Chloride (Potassium Chloride 20 Meq Tablet) 40 meq PO UD PRN PRN Reason: Potassium Level < 3 Senna (Sennosides 1 Tablet) 2 tab PO DAILYP PRN PRN Reason: Constipation Senna (Sennosides 1 Tablet) 2 tab PO HS [facility] Last Admin: 08/27/22 20:31 Dose: 2 tab Sodium Biphosphate/Sodium Phosphate (Fleets Adult Enema) 1 dose GA Q3-4DAYS PRN PRN Reason: Constipation Throat Lozenges (Benzocaine/Menthol 1 Lozenge) 1 lozenge PO PRN PRN PRN Reason: Sore Throat A/P Narrative A/P Narrative: A: *DKA (h/o DM1): resolved -pt states he gets low BG several times per week *AG Met-Acidosis with Severe lactic acidosis: 2/2 above -improved *Fall: 2/2 likely hypoglycemic event *b/l Hip Fxs: 2/2 above, s/p ORIF (08/26) *Rhabdomyolysis: 2/2 above -cpk 1619>>2916 *DEMARIO on CKD II: 2/2 above, improved *Acute anemia: Likely blood loss from bilateral hip fracture site hemorrhage -s/p 2prbc in ED and 2prbc preop -hgb 7.0 today *Thrombocytopenia, mild: *Leukocytosis: Likely reactive, monitor. Patient afebrile, no bandemia. resolved *Hyponatremia/Hypophos: *h/o CVA: mild residual vision impairment, no focal weakness *Depression: *HTN: *Obesity: BMI 30 P: -transitioned to SQ insulin -IVF -Monitor cbc, 2 prbc today -imaging for occult bleeding vs fracture site hematomas -Trend renal function/monitor UOP -Monitor electrolytes and replace -f/u cpk -Dr. Rodriguez for orthopedic surgery -Continue home Norvasc, hold ACEI/HCTZ for demario and volume depletion and restart as needed -hold statin, held aspirin preop -PT/OT -CM for placement need -ppx: post-op per ortho apixaban but will hold for now while source of bleeding identified, SCD Time Spent With Patient Time: Total time spent is greater than 50% in coordination of care (as documented) at patient's floor/unit and/or counseling patient: Subsequent: Total time with patient: 50 - 65 Minutes
[2022-08-28] MEDS: FLUoxetine HCL 20 MG CAPSULE PO SCH (08:52)
[2022-08-28] MEDS: amLODIPine 5 MG TABLET PO SCH (08:53)
[2022-08-28] MEDS: APIXABAN 5 MG TABLET PO SCH (08:53)
[2022-08-28] MEDS: PANTOPRAZOLE 40 MG TABLET PO SCH (08:57)
[2022-08-28] MEDS: DOCUSATE SODIUM 100 MG CAPSULE PO SCH ×2 (08:57→20:49)
[2022-08-28] MEDS: INSULIN GLARGINE, HUMAN 1 UNIT/0.01 ML SQ SCH (08:59)
[2022-08-28] MEDS ORDERED: FUROSEMIDE 20 MG/2 ML VIAL IV SCH (10:27)
--- NOTE | 2022-08-28 15:51 | Cat Scan Report ---
CLINICAL INFORMATION: Pelvic pain. Evaluate for blood loss. Recent ORIF proximal femoral fractures COMPARISON: Chest abdomen and pelvic CT 08/03/2010 TECHNIQUE: 0.625 mm helical slices were obtained from the mid heart through the subtrochanteric regions. Following reconstruction, 2.5 mm sagittal, coronal and axial reformatted images were processed and reviewed at bone and soft tissue windows.The exam was performed using radiation dose optimization techniques including, but not limited to, automated exposure control, adjustment of the mA and/or kV according to patient size and use of iterative reconstruction technique. FINDINGS: The lung shows subsegmental atelectasis in the posterior left lower lobe. No effusion. The visualized heart is normal. Abdominal images show the noncontrasted gallbladder and bile ducts, liver, both kidneys, adrenal glands, spleen, pancreas and aorta, including aortic branches, are normal in size, configuration and attenuation without focal lesion. There is no free air, free fluid or adenopathy. Pelvic images show normal noncontrasted urinary bladder, prostate and seminal vesicles. Hagan catheter is properly positioned in the urinary bladder. The stomach, small bowel, retrocecal appendix and large bowel are grossly normal. Bone windows show left intertrochanteric fracture reduced to near anatomic alignment and transfixed by gamma nail. A lesser trochanteric fragment is displaced anteriorly and medially approximately 2 cm. The subtrochanteric fracture of the right hip is also reduced to near anatomic alignment and transfixed by gamma nail. There is a greater trochanteric fragment displaced 1 to 2 cm superiorly. There is modest edema in the subcutaneous fat over the lateral pelvis with surgical incision containing a small amount of gas as expected in the postoperative period. There is no evidence of hemorrhage. IMPRESSION: 1. ORIF proximal femur fractures in near-anatomic alignment. Edema in the overlying subcutaneous fat and surgical wound with small amounts of gas are expected in the postoperative appearance. No evidence of hemorrhage. 2. Subsegmental atelectasis posterior left lower lobe Interpreted and Authenticated by: Elroy Little 08/28/22
[2022-08-28] MEDS: POLYETHYLENE GLYCOL 3350 17 GM PACKET PO PRN (19:15)
[2022-08-28] MEDS: MAGNESIUM HYDROXIDE 30 ML ORAL.SUSP PO PRN (19:15)
[2022-08-28] MEDS: SENNOSIDES 1 TABLET PO SCH (20:49)
[2022-08-29] MEDS: METHOCARBAMOL 750 MG TABLET PO PRN ×4 (02:42→22:51)
[2022-08-29] MEDS: HYDROcodone/APAP 10/325MG TABLET PO PRN ×5 (04:55→21:11)
[2022-08-29 06:56] LABS: Basophils # (Auto) 0.02 K/mcL (0.00-0.30); Basophils % (Auto) 0.2 % (0.0-2.0); Eosinophils # (Auto) 0.23 K/mcL (0.00-0.70); Eosinophils % (Auto) 2.4 % (0.0-7.0); Hematocrit 29.2 % (40.1-51.0); Hemoglobin 9.3 g/dL (13.7-17.5); Lymphocytes # (Auto) 1.63 K/mcL (1.50-4.80); Lymphocytes % (Auto) 16.7 % (15.5-49.0); Mean Cell Volume 95.4 fL (80.0-100.0); Mean Corpuscular HGB Conc 31.8 g/dL (31.0-36.0); Monocytes # (Auto) 0.95 K/mcL (0.10-0.90); Monocytes % (Auto) 9.8 % (1.0-12.0); Neutrophils % (Auto) 69.7 % (38.0-78.0); Platelet Count 156 K/mcL (140-440); RBC 3.06 M/mcL (4.63-6.08); Red Cell Distribution Width 13.7 % (11.5-14.5); WBC 9.7 K/mcL (4.5-11.0)
[2022-08-29 07:14] LABS: ALT/SGPT 33 U/L (<40); AST/SGOT 98 U/L (<40); Albumin 2.3 gm/dL (3.2-5.2); Alkaline Phosphatase 49 U/L (39-117); Bilirubin,Direct 0.2 mg/dL (<0.3); Bilirubin,Total 0.8 mg/dL (0.1-1.0); Blood Urea Nitrogen 14 mg/dL (8-23); Calcium 7.4 mg/dL (8.6-10.4); Carbon Dioxide 29 mmol/L (22-30); Chloride 97 mmol/L (96-108); Globulin 2.4 gm/dL (2.2-3.7); Glomerular Filtration Rate 101; Glucose 264 mg/dL (70-105); Lactate Dehydrogenase 359 U/L (135-225); Phosphorous 1.8 mg/dL (2.5-4.5); Triglycerides 136 mg/dL (<150)
[2022-08-29 07:41] LABS: Creatine Kinase 3367 U/L (24-195)
[2022-08-29] MEDS: INSULIN LISPRO 1 UNIT/0.01 ML UNIT SQ SCH ×4 (07:43→21:12)
[2022-08-29] MEDS: morphine 4 MG/ML VIAL IV PRN ×4 (07:43→20:07)
[2022-08-29] MEDS: PANTOPRAZOLE 40 MG TABLET PO SCH (07:44)
--- NOTE | 2022-08-29 08:43 | Internal Med Progress Note ---
SUBJECTIVE Subjective Patient information: Note initiated : 08/29/22 at 8:37 am Service Date, if different from initiated Date: [] Patient: Gagan Olivas 61 y/o M admitted on 08/25/22. Chief Complaint: [] Principal diagnosis: Bilateral hip fxs Interval history: History of present illness: Mr. Olivas is a 61 year old M Presents the ED after fall and has been on the floor all night. Patient has diabetes type 1 and administer his own insulin. He has a Dexcom that read low last night but does not have an actual number. He says his blood sugars get low several times a week. He believes that around the time his blood glucose dropped last night is when he fell. He then got up and walked over to another part of the floor and lay down again. 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 He never called any family members, remaining on the floor until his mom came in at around 1230 and found him on the floor. Patient complained of bilateral hip pain. Patient states he was in his normal state of health until last night. Patient states he is takes 16 units of long-acting insulin each morning and then short acting with each meal. Noted to have bilateral hip pain. No LOC or hitting his head. Today's blood glucose read as high. In the ED patient found to have bilateral hip fractures for which Dr. Rodriguez was contacted. Patient also found to be in DKA. Patient started on IV fluids and insulin drip. Also found to be quite anemic 8.4 with a baseline hemoglobin ~14.0. Likely secondary to bleeding from bilateral hip fractures. 2 units of blood ordered in ED. Leukocytosis noted but patient afebrile. Chest x-ray unremarkable. UA pending. CPK was noted to be 1619 and lactate was elevated at 10.8 with repeat after 1.3L's showing 7.4 Also found to have acute kidney injury with a creatinine of 1.5 on [id number]. Vital signs showed tachycardia in the 110s with remaining vital signs stable. He did have some nausea when EMS was calling about. But denied any headaches fever chills chest pain shortness of breath 08/26 Patient feeling a little better today. Not as somnolent. Anion gap closed and will transition to subcu insulin. CPK increased today and will continue IV fluids and monitor. Leukocytosis but patient afebrile, suspect reactive but mon itoring closely. Severe lactic acidosis resolved. Pain not quite controlled and will increase as needed IV morphine. 08/27 Patient had bilateral hip ORIF yesterday. Does have some discomfort in hips but better than before. Leukocytosis improving. CPK increasing. IV fluids today and continue monitoring. Monitor for hypoglycemia as well on home regimen insulin. 08/28 patient says he still feels pretty weak and sore. Hemoglobin down to 7.0. Imaging for occult bleeding hematomas around him at home is around fracture sites pending. Hold anticoagulation today. CPK continuing to rise. 08/29 CPK mildly worsened today but not rising as fast as previous, only minimal rise today and suspect peaking. Patient does feel better and does not have as much pain in the hips as before. Patient responded well to 2 units of PRBCs yesterday. Imaging did not reveal any occult bleeding. Hyponatremia and hypophosphatemia noted on labs. Review of Systems: Pertinent positive as above. Denies headache/fever/chills/vomiting/chest or abdominal pain/cough/dyspnea/diarrhea. Remaining 10 point review system reviewed negative PHYSICAL EXAM General: Alert, Awake, No acute Distress, obese Eyes/N/T: EOMI, no scleral icterus, Head/Neck: neck supple, full ROM, CV: RRR, No murmur Pulm: Clear b/l, no wheezing/rhonchi/rales, no respiratory distress Abd: soft, nontender, +BS x4. patient has ecchymosis over the right flank area as well as groin area Ext: no clubbing/cyanosis, 1+ b/l LE edema, nontender. bilateral hip dressings Neuro: Alert, no focal deficits, , sensations intact b/l upper/lower Psychiatric: Skin: warm/dry, normal color Constitutional Vitals: Vital Signs Temp Pulse Resp BP Pulse Ox O2 Del Method O2 Flow Rate 97.3 F 77 16 118/61 100 Room Air 2 08/29/22 08:00 08/29/22 08:00 08/29/22 08:00 08/29/22 08:00 08/29/22 08:00 08/29/22 08:00 08/28/22 07:50 Period Temp Pulse Resp BP Sys/Navarro Pulse Ox O2 Del Method O2 Flow Rate Last 24 Hr 97.3 F-98.4 F 77-96 16-20 104-158/55-93 90-100 Room Air-Room Air Intake and Output 08/28/22 08/29/22 08/29/22 19:59 03:59 11:59 Intake Total 1305 800 850 Output Total 2325 1100 800 Balance -1020 -300 50 Weight 106.594 kg Intake & Output: Intake & Output 08/28/22 08/29/22 08/29/22 19:59 03:59 11:59 Intake Total 1305 800 850 Output Total 2325 1100 800 Balance -1020 -300 50 Weight 106.594 kg Intake: IV 250 Sodium Chloride 0.9% 250 ml @ 250 20 mls/hr IV .[id number] [facility] Rx#: [id number] Oral 980 800 600 Blood Product 325 Output: Urine Catheter Amount 2325 1100 800 Other: Meal Lunch Percent of Meal Consumed 100% Feeding Ability Independent Urine Appearance Clear Clear Uretheral (Hagan) Clear Clear Urine Color Yellow Yellow Uretheral (Hagan) Yellow Yellow Urine Odor Normal Uretheral (Hagan) Normal OBJ DATA Labs 08/29/22 05:31 08/29/22 05:31 Labs: Abnormal Lab Results 08/29/22 08/29/22 08/28/22 05:31 05:31 05:51 WBC RBC 3.06 L Hgb 9.3 L Hct 29.2 L Plt Count Immature Gran % (Auto) 1.2 H Neut % (Auto) Lymph % (Auto) Lymph # (Auto) [place] # (Auto) 0.95 H Immature Gran # 0.12 H Absolute Neutrophils Sodium 130 L Anion Gap 4.0 L BUN Glucose 264 H Calcium 7.4 L Phosphorus 1.8 L GGT 7 L AST 98 H Lactate Dehydrogenase 359 H Total Creatine Kinase 3367 H 3299 H Total Protein 4.7 L Albumin 2.3 L Globulin 08/28/22 08/28/22 08/27/22 05:51 05:51 05:39 WBC RBC 2.28 L Hgb 7.0 L* Hct 20.9 L* Plt Count 128 L Immature Gran % (Auto) 0.8 H Neut % (Auto) Lymph % (Auto) Lymph # (Auto) [place] # (Auto) 0.92 H Immature Gran # 0.08 H Absolute Neutrophils Sodium Anion Gap 4.0 L BUN 25 H Glucose 217 H Calcium 7.1 L 7.6 L Phosphorus 2.1 L 2.0 L GGT 6 L 6 L AST 94 H 73 H Lactate Dehydrogenase 288 H 276 H Total Creatine Kinase 2916 H Total Protein 4.3 L 4.6 L Albumin 2.1 L 2.7 L Globulin 1.9 L 08/27/22 08/26/22 05:39 23:36 WBC 13.4 H 16.9 H RBC 2.74 L 3.20 L Hgb 8.3 L 9.6 L Hct 25.2 L 29.3 L Plt Count 109 L 127 L Immature Gran % (Auto) 1.4 H Neut % (Auto) 85.8 H 86.5 H Lymph % (Auto) 5.8 L 4.4 L Lymph # (Auto) 0.77 L 0.74 L [place] # (Auto) 1.06 H 1.27 H Immature Gran # 0.07 H 0.23 H Absolute Neutrophils 11.45 H 14.58 H Sodium Anion Gap BUN Glucose Calcium Phosphorus GGT AST Lactate Dehydrogenase Total Creatine Kinase Total Protein Albumin Globulin Meds: Medications Acetaminophen (Acetaminophen 325 Mg Tablet) 650 mg PO Q6HP PRN PRN Reason: fever > 101 Hydrocodone Bitart/Acetaminophen (Hydrocodone/Apap 10/325mg Tablet) 0 tab PO Q4HP PRN; Protocol PRN Reason: Per Pain Protocol Last Admin: 08/29/22 04:55 Dose: 2 tab Albuterol/Ipratropium (Ipratropium/Albuterol 3 Ml Ampul.Neb) 3 ml NEB Q4HP PRN PRN Reason: Shortness Of Breath Amlodipine Besylate (Amlodipine 5 Mg Tablet) 5 mg PO DAILY [facility] Last Admin: 08/28/22 08:53 Dose: 5 mg Apixaban (Apixaban 5 Mg Tablet) 2.5 mg PO BID [facility] Bisacodyl (Bisacodyl 10 Mg Supp.Rect) 10 mg PA Q2-3DAYS PRN PRN Reason: Constipation Diagnostic Test (Pha) (Accu-Chek 1 Each Strip) 1 each FS ACHS [facility] Last Admin: 08/29/22 07:43 Dose: 1 each Docusate Sodium (Docusate Sodium 100 Mg Capsule) 100 mg PO BID [facility] Last Admin: 08/28/22 20:49 Dose: 100 mg Fluoxetine HCl (Fluoxetine Hcl 20 Mg Capsule) 40 mg PO QAM [facility] Last Admin: 08/28/22 08:52 Dose: 40 mg Potassium Chloride 40 meq/ (Dextrose) 520 mls @ 130 mls/hr IV UD PRN PRN Reason: Potassium Level < 3 Magnesium Sulfate (Magnesium Sulfate) 2 gm in 50 mls @ 25 mls/hr IV UD PRN PRN Reason: Magnesium Level </= 1.6 Last Infusion: 08/25/22 23:02 Dose: Infused Acetaminophen (Ofirmev) 650 mg in 65 mls @ 130 mls/hr IV Q6HP PRN; Protocol PRN Reason: PAIN/FEVER > 101 Last Infusion: 08/27/22 11:15 Dose: Infused Insulin Glargine (Insulin Glargine, Human 1 Unit/0.01 Ml) 19 unit SQ DAILY [facility] Last Admin: 08/28/22 08:59 Dose: 19 units Insulin Human Lispro (Insulin Lispro 1 Unit/0.01 Ml Unit) 0 unit SQ ACHS [facility]; Protocol Last Admin: 08/29/22 07:43 Dose: 8 units Magnesium Hydroxide (Magnesium Hydroxide 30 Ml Oral.Susp) 30 ml PO BIDP PRN PRN Reason: Constipation Last Admin: 08/28/22 19:15 Dose: 30 ml Methocarbamol (Methocarbamol 750 Mg Tablet) 750 mg PO Q6HP PRN PRN Reason: Muscle Spasm Last Admin: 08/29/22 02:42 Dose: 750 mg Morphine Sulfate (Morphine 4 Mg/Ml Vial) 0 mg IV Q1HP PRN; Protocol PRN Reason: Per Pain Protocol Last Admin: 08/29/22 07:43 Dose: 4 mg Ondansetron HCl (Ondansetron 4 Mg Odt Tablet) 4 mg SL Q4HP PRN; Protocol PRN Reason: Nausea And Vomiting Pantoprazole Sodium (Pantoprazole 40 Mg Tablet) [facility] Last Admin: 08/29/22 07:44 Dose: 40 mg Polyethylene Glycol (Polyethylene Glycol 3350 17 Gm Packet) 17 gm PO DAILYP PRN PRN Reason: Constipation Last Admin: 08/28/22 19:15 Dose: 17 gm Potassium Chloride (Potassium Chloride 20 Meq Tablet) 40 meq PO UD PRN PRN Reason: Potassium Level of 3-3.5 Potassium Chloride (Potassium Chloride 20 Meq Tablet) 40 meq PO UD PRN PRN Reason: Potassium Level < 3 Senna (Sennosides 1 Tablet) 2 tab PO DAILYP PRN PRN Reason: Constipation Senna (Sennosides 1 Tablet) 2 tab PO HS MARCIA Last Admin: 08/28/22 20:49 Dose: 2 tab Sodium Biphosphate/Sodium Phosphate (Fleets Adult Enema) 1 dose PA Q3-4DAYS PRN PRN Reason: Constipation Throat Lozenges (Benzocaine/Menthol 1 Lozenge) 1 lozenge PO PRN PRN PRN Reason: Sore Throat A/P Narrative A/P Narrative: A: *DKA (h/o DM1): resolved -pt states he gets low BG several times per week *AG Met-Acidosis with Severe lactic acidosis: 2/2 above -improved *Fall: 2/2 likely hypoglycemic event *b/l Hip Fxs: 2/2 above, s/p ORIF (08/26) *Rhabdomyolysis: 2/2 above -cpk still rising although minimally from yesterday, [id number] *DEMARIO on CKD II: 2/2 above, improved *Acute anemia: Likely blood loss from bilateral hip fracture site hemorrhage -s/p 2prbc in ED and 2prbc preop, 2prc (08/28), no occult source of bleeding found on imaging -hgb 9.3, responded well to last transfusion *Thrombocytopenia, mild: *Leukocytosis: Likely reactive, monitor. Patient afebrile, no bandemia. resolved *Hyponatremia/Hypophos: *h/o CVA: mild residual vision impairment, no focal weakness *Depression: *HTN: *Obesity: BMI 30 P: -transitioned to SQ basal insulin & SSI, increase basal -IVF -Monitor cbc -Trend renal function/monitor UOP -Monitor electrolytes and replace -f/u cpk, check myogl -Dr. Rodriguez for orthopedic surgery -Continue home Norvasc, held ACEI/HCTZ initially restart as needed -hold statin, held aspirin preop -PT/OT -CM for placement need -ppx: post-op per ortho apixaban but held yesterday d/t blood loss, will restart tomorrow, continue SCD Time Spent With Patient Time: Total time spent is greater than 50% in coordination of care (as documented) at patient's floor/unit and/or counseling patient: Subsequent: Total time with patient: 50 - 65 Minutes
--- NOTE | 2022-08-29 08:57 | EKG ---
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
[2022-08-29] MEDS ORDERED: 0.9 % SODIUM CHLORIDE 1,000 ML IV SCH (09:00)
[2022-08-29] MEDS ORDERED: INSULIN GLARGINE, HUMAN 1 UNIT/0.01 ML SQ SCH (09:00)
[2022-08-29] MEDS: amLODIPine 5 MG TABLET PO SCH (09:23)
[2022-08-29] MEDS: FLUoxetine HCL 20 MG CAPSULE PO SCH (09:23)
[2022-08-29] MEDS: PHOSPHORUS 250 MG TABLET PO SCH ×4 (09:23→21:11)
[2022-08-29] MEDS: DOCUSATE SODIUM 100 MG CAPSULE PO SCH ×2 (09:24→21:11)
[2022-08-29] MEDS ORDERED: FUROSEMIDE 40 MG/4 ML VIAL IV SCH (10:30)
[2022-08-29] MEDS ORDERED: FUROSEMIDE 40 MG/4 ML VIAL IV ONE (11:00)
[2022-08-29] MEDS ORDERED: ALBUMIN HUMAN 12.5 GM/50 ML VIAL IV SCH (11:00)
--- NOTE | 2022-08-29 11:29 | Discharge Summary ---
Discharge Provider Provider IMPORTANT FOLLOW-UP INFORMATION FOR PCP: Patient information: Note initiated : 08/29/22 at 11:27 am Service Date, if different from initiated Date: [] Patient: Gagan Olivas 61 y/o M admitted on 08/25/22. Chief Complaint: [] Date of admission: 08/25/22 18:16 Discharge date: 08/30/22 Primary care physician: Ariel Fuentes MD Consults: 08/25/22 Consult to Physician [CONS] Stat Comment: Consulting Provider: Zeyad Gallo Reason For Exam: Physician to Consult 08/25/22 18:20 Consult to Physician [CONS] Routine Comment: Consulting Provider: Elroy Rodriguez Reason For Exam: Physician to Consult COURSE Hospital Course Hospital course: History of present illness: Mr. Olivas is a 61 year old M Presents the ED after fall and has been on the floor all night. Patient has diabetes type 1 and administer his own insulin. He has a Dexcom that read low last night but does not have an actual number. He says his blood sugars get low several times a week. He believes that around the time his blood glucose dropped last night is when he fell. He then got up and walked over to another part of the floor and lay down again. 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 He never called any family members, remaining on the floor until his mom came in at around 1230 and found him on the floor. Patient complained of bilateral hip pain. Patient states he was in his normal state of health until last night. Patient states he is takes 16 units of long-acting insulin each morning and then short acting with each meal. Noted to have bilateral hip pain. No LOC or hitting his head. Today's blood glucose read as high. In the ED patient found to have bilateral hip fractures for which Dr. Rodriguez was contacted. Patient also found to be in DKA. Patient started on IV fluids and insulin drip. Also found to be quite anemic 8.4 with a baseline hemoglobin ~14.0. Likely secondary to bleeding from bilateral hip fractures. 2 units of blood ordered in ED. Leukocytosis noted but patient afebrile. Chest x-ray unremarkable. UA pending. CPK was noted to be 1619 and lactate was elevated at 10.8 with repeat after 1.3L's showing 7.4 Also found to have acute kidney injury with a creatinine of 1.5 on [id number]. Vital signs showed tachycardia in the 110s with remaining vital signs stable. He did have some nausea when EMS was calling about. But denied any headaches fever chills chest pain shortness of breath 08/26 Patient feeling a little better today. Not as somnolent. Anion gap closed and will transition to subcu insulin. CPK increased today and will continue IV fluids and monitor. Leukocytosis but patient afebrile, suspect reactive but monitoring closely. Severe lactic acidosis resolved. Pain not quite controlled and will increase as needed IV morphine. 08/27 Patient had bilateral hip ORIF yesterday. Does have some discomfort in hips but better than before. Leukocytosis improving. CPK increasing. IV fluids today and continue monitoring. Monitor for hypoglycemia as well on home regimen insulin. 08/28 patient says he still feels pretty weak and sore. Hemoglobin down to 7.0. Imaging for occult bleeding hematomas around him at home is around fracture sites pending. Hold anticoagulation today. CPK continuing to rise. 08/29 CPK mildly worsened today but not rising as fast as previous, only minimal rise today and suspect peaking. Patient does feel better and does not have as much pain in the hips as before. Patient responded well to 2 units of PRBCs yesterday. Imaging did not reveal any occult bleeding. Hyponatremia and hypophosphatemia noted on labs. 08/30 Patient feeling well. No overnight event or new complaints. CPK now decreasing. Hemoglobin stable. Sodium mildly low but stable. IV Lasix x1 more dose for lower extremity edema not improving which should help the sodium level as well. A: *DKA (h/o DM1): *AG Met-Acidosis with Severe lactic acidosis: *Fall: 2/2 likely hypoglycemic event *b/l Hip Fxs: 2/2 above, s/p ORIF (08/26) *Rhabdomyolysis: 2/2 above *DEMARIO on CKD II: *Acute anemia: Likely blood loss from bilateral hip fracture site hemorrhage plus IVF dilution *Thrombocytopenia, mild: *Hyponatremia/Hypophos: *h/o CVA: mild residual vision impairment, no focal weakness *Depression: *HTN: *Obesity: BMI 30 P: -Dr. Rodriguez for orthopedic surgery Discharge diagnosis: DKA acidosis falling with bilateral hip fractures rhabdomyolysis Secondary discharge diagnosis: acute kidney injury on chronic acute blood loss anemia thrombocytopenia electrolyte imbalance history of stroke depression hypertension obesity Time Spent with Patient Time attestation: Total time spent providing and/or coordinating discharge services: Time spent: Greater than 30 minutes EXAM Constitutional Vitals: Temp Pulse Resp BP Pulse Ox O2 Del Method O2 Flow Rate 97.3 F 77 16 118/61 100 Room Air 2 08/29/22 08:00 08/29/22 08:00 08/29/22 08:00 08/29/22 08:00 08/29/22 08:00 08/29/22 08:00 08/28/22 07:50 Discharge Data Data Completed and Pending Labs on day of discharge: Labs from last 24 hours 08/29/22 08/29/22 08/29/22 05:31 05:31 05:31 WBC 9.7 RBC 3.06 L Hgb 9.3 L Hct 29.2 L MCV 95.4 MCH 30.4 MCHC 31.8 RDW 13.7 Plt Count 156 MPV 10.0 Immature Gran % (Auto) 1.2 H Neut % (Auto) 69.7 Lymph % (Auto) 16.7 [place] % (Auto) 9.8 Eos % (Auto) 2.4 Baso % (Auto) 0.2 Lymph # (Auto) 1.63 [place] # (Auto) 0.95 H Eos # (Auto) 0.23 Baso # (Auto) 0.02 Immature Gran # 0.12 H Absolute Neutrophils 6.79 Sodium 130 L Potassium 4.4 Chloride 97 Carbon Dioxide 29 Anion Gap 4.0 L BUN 14 Creatinine 0.7 GFR Calculation 101 Glucose 264 H Uric Acid 3.0 Calcium 7.4 L Phosphorus 1.8 L Magnesium 2.1 Total Bilirubin 0.8 Direct Bilirubin 0.2 GGT 7 L AST 98 H ALT 33 Alkaline Phosphatase 49 Lactate Dehydrogenase 359 H Total Creatine Kinase 3367 H Myoglobin 557 H Total Protein 4.7 L Albumin 2.3 L Globulin 2.4 Albumin/Globulin Ratio 1.0 Triglycerides 136 Discharge Plan Patient/Caregiver Discharge Instructions Activity: ambulate only with your walker and as per physical therapy Diet: Consistent Carbohydrate Instructions: Diabetic Ketoacidosis (DC) Prescriptions: New hydrocodone-acetaminophen 10-325 mg tablet 1 - 2 tab PO Q4H PRN (Reason: Pain) Qty: 40 0RF Eliquis 5 mg Tablet 2.5 mg PO BID Qty: 30 0RF Continued (DME) ReliOn Prime Test Strips Strip See Dose Instructions .ROUTE .MEDSUPPLY Qty: 700 5RF Rx Instructions: Use to check blood sugar 8 times daily (DME) pen needle, diabetic [BD Ultra-Fine Mini Pen Needle] 31 gauge x 3/16" needle See Dose Instructions .ROUTE .MEDSUPPLY Qty: 100 4RF Rx Instructions: Use to inject insulin daily insulin degludec [Tresiba FlexTouch U-200] 200 unit/mL (3 mL) insulin pen See Rx Instructions .ROUTE .COMPLEX Qty: 9 4RF Dose Instruction: INJECT 32 UNITS UNDER THE SKIN ONCE DAILY Rx Instructions: INJECT 24 UNITS UNDER THE SKIN ONCE DAILY (DME) Dexcom G6 Sensor Device See Rx Instructions .Route Qty: 3 12RF Rx Instructions: As directed fluoxetine 40 mg capsule 40 mg PO QAM Qty: 90 4RF insulin lispro [Humalog U-100 Insulin] 100 unit/mL solution 1 sliding scale dose subcut .With Each Meal MDD 50units Qty: 10 5RF Rx Instructions: Medium sliding scale (DME) Dexcom G6 Transmitter Device See Rx Instructions .Route Qty: 1 0RF Rx Instructions: As directed aspirin [Adult Low Dose Aspirin] 81 mg tablet,delayed release (DR/EC) 81 mg PO QDAY (DME) OneTouch Ultra Blue Test Strip strip See Dose Instructions .ROUTE .MEDSUPPLY Qty: 10 Rx Instructions: As directed amlodipine 5 mg tablet 5 mg PO QDAY benazepril 40 mg tablet 40 mg PO QDAY hydrochlorothiazide 25 mg tablet 25 mg PO QDAY pravastatin 80 mg tablet 80 mg PO QHS Other Ambulatory Orders: OT Discharge Order (Routine) Location: None Selected Ordered By: Elroy Rodriguez Physical Therapy DC - General (Routine) Location: None Selected Ordered By: Elroy Rodriguez Follow Up Plan Follow up with: Ariel Fuentes MD [Primary Care Provider] - Elroy Rodriguez MD [Physician] - Patient Disposition: Xfer SNF Prognosis: Good Rehab Potential: Good I certify that the patient requires SNF services: Yes Overall status at discharge: patient is progressing back to baseline Discharge Orders: Discharge Order (Routine); Ordered 08/26/22 Ordered By: Elroy Rodriguez Discharge Comment: cc: bilateral hip fractures s/p cmn
[2022-08-29] MEDS: MAGNESIUM HYDROXIDE 30 ML ORAL.SUSP PO PRN (16:51)
[2022-08-29] MEDS: POLYETHYLENE GLYCOL 3350 17 GM PACKET PO PRN (21:11)
[2022-08-29] MEDS: SENNOSIDES 1 TABLET PO SCH (21:11)
[2022-08-30] MEDS: HYDROcodone/APAP 10/325MG TABLET PO PRN ×3 (02:10→10:37)
[2022-08-30] MEDS: METHOCARBAMOL 750 MG TABLET PO PRN ×2 (05:02→10:37)
[2022-08-30] MEDS: morphine 4 MG/ML VIAL IV PRN (06:27)
[2022-08-30 06:41] LABS: Hematocrit 27.5 % (40.1-51.0); Hemoglobin 9.2 g/dL (13.7-17.5)
[2022-08-30 07:08] LABS: Myoglobin 319 ng/mL (28-72)
[2022-08-30 07:17] LABS: ALT/SGPT 33 U/L (<40); AST/SGOT 84 U/L (<40); Albumin 2.5 gm/dL (3.2-5.2); Alkaline Phosphatase 47 U/L (39-117); Bilirubin,Direct 0.3 mg/dL (<0.3); Blood Urea Nitrogen 14 mg/dL (8-23); Calcium 7.5 mg/dL (8.6-10.4); Carbon Dioxide 30 mmol/L (22-30); Chloride 94 mmol/L (96-108); Globulin 2.4 gm/dL (2.2-3.7); Glomerular Filtration Rate 101; Glucose 165 mg/dL (70-105); Lactate Dehydrogenase 362 U/L (135-225); Phosphorous 2.3 mg/dL (2.5-4.5); Triglycerides 152 mg/dL (<150); Uric Acid 2.7 mg/dL (2.5-8.0)
[2022-08-30] MEDS: INSULIN LISPRO 1 UNIT/0.01 ML UNIT SQ SCH (07:39)
[2022-08-30] MEDS: PANTOPRAZOLE 40 MG TABLET PO SCH (07:40)
[2022-08-30 07:52] LABS: Creatine Kinase 2562 U/L (24-195)
[2022-08-30] MEDS ORDERED: ALBUMIN HUMAN 12.5 GM/50 ML VIAL IV SCH (08:10)
[2022-08-30] MEDS ORDERED: FUROSEMIDE 40 MG/4 ML VIAL IV SCH (08:10)
--- NOTE | 2022-08-30 08:11 | Internal Med Progress Note ---
SUBJECTIVE Subjective Patient information: Note initiated : 08/30/22 at 8:08 am Service Date, if different from initiated Date: [] Patient: Gagan Olivas 61 y/o M admitted on 08/25/22. Chief Complaint: [] Principal diagnosis: Bilateral hip fxs Interval history: History of present illness: Mr. Olivas is a 61 year old M Presents the ED after fall and has been on the floor all night. Patient has diabetes type 1 and administer his own insulin. He has a Dexcom that read low last night but does not have an actual number. He says his blood sugars get low several times a week. He believes that around the time his blood glucose dropped last night is when he fell. He then got up and walked over to another part of the floor and lay down again. Then it sounds like in the blunger loader hours he got back up and fell again. He never called any family members, remaining on the floor until his mom came in at around 1230 and found him on the floor. Patient complained of bilateral hip pain. Patient states he was in his normal state of health until last night. Patient states he is takes 16 units of long-acting insulin each morning and then short acting with each meal. Noted to have bilateral hip pain. No LOC or hitting his head. Today's blood glucose read as high. In the ED patient found to have bilateral hip fractures for which Dr. Rodriguez was contacted. Patient also found to be in DKA. Patient started on IV fluids and insulin drip. Also found to be quite anemic 8.4 with a baseline hemoglobin ~14.0. Likely secondary to bleeding from bilateral hip fractures. 2 units of blood ordered in ED. Leukocytosis noted but patient afebrile. Chest x-ray unremarkable. UA pending. CPK was noted to be 1619 and lactate was elevated at 10.8 with repeat after 1.3L's showing 7.4 Also found to have acute kidney injury with a creatinine of 1.5 on [id number]. Vital signs showed tachycardia in the 110s with remaining vital signs stable. He did have some nausea when EMS was calling about. But denied any headaches fever chills chest pain shortness of breath 08/26 Patient feeling a little better today. Not as somnolent. Anion gap closed and will transition to subcu insulin. CPK increased today and will continue IV fluids and monitor. Leukocytosis but patient afebrile, suspect reactive but mon itoring closely. Severe lactic acidosis resolved. Pain not quite controlled and will increase as needed IV morphine. 08/27 Patient had bilateral hip ORIF yesterday. Does have some discomfort in hips but better than before. Leukocytosis improving. CPK increasing. IV fluids today and continue monitoring. Monitor for hypoglycemia as well on home regimen insulin. 08/28 patient says he still feels pretty weak and sore. Hemoglobin down to 7.0. Imaging for occult bleeding hematomas around him at home is around fracture sites pending. Hold anticoagulation today. CPK continuing to rise. 08/29 CPK mildly worsened today but not rising as fast as previous, only minimal rise today and suspect peaking. Patient does feel better and does not have as much pain in the hips as before. Patient responded well to 2 units of PRBCs yesterday. Imaging did not reveal any occult bleeding. Hyponatremia and hypophosphatemia noted on labs. 08/30 Patient feeling well. No overnight event or new complaints. CPK now decreasing. Hemoglobin stable. Sodium mildly low but stable. IV Lasix x1 more dose for lower extremity edema not improving which should help the sodium level as well. Review of Systems: Pertinent positive as above. Denies headache/fever/chills/vomiting/chest or abdominal pain/cough/dyspnea/diarrhea. PHYSICAL EXAM General: Alert, Awake, No acute Distress, obese Eyes/N/T: EOMI, no scleral icterus, Head/Neck: neck supple, full ROM, CV: RRR, No murmur Pulm: Clear b/l, no wheezing/rhonchi/rales, no respiratory distress Abd: soft, nontender, +BS x4. patient has ecchymosis over the right flank area as well as groin area Ext: no clubbing/cyanosis, 1+ b/l LE edema, nontender. bilateral hip dressings Neuro: Alert, no focal deficits, , sensations intact b/l upper/lower Psychiatric: Skin: warm/dry, normal color Constitutional Vitals: Vital Signs Temp Pulse Resp BP Pulse Ox O2 Del Method O2 Flow Rate 98.6 F 87 24 H 137/66 92 Room Air 2 08/30/22 08:00 08/30/22 08:00 08/30/22 08:00 08/30/22 08:00 08/30/22 08:00 08/30/22 08:00 08/28/22 07:50 Period Temp Pulse Resp BP Sys/Navarro Pulse Ox O2 Del Method O2 Flow Rate Last 24 Hr 97.2 F-98.6 F 85-92 14-24 120-142/60-74 92-98 Room Air-Room Air Intake and Output 08/29/22 08/30/22 08/30/22 19:59 03:59 11:59 Intake Total 920 1000 1040 Output Total 2700 950 Balance -1780 1000 90 Weight 107.7 kg Intake & Output: Intake & Output 08/29/22 08/30/22 08/30/22 19:59 03:59 11:59 Intake Total 920 1000 1040 Output Total 2700 950 Balance -1780 1000 90 Weight 107.7 kg Intake: IV 1000 Sodium Chloride 0.9% 1,000 ml @ 1000 100 mls/hr IV .Q10H [facility] Rx#: [id number] Oral 920 1040 Output: Urine Catheter Amount 2700 950 Other: Meal Lunch Percent of Meal Consumed 100% Feeding Ability Independent Urine Appearance Clear Clear Uretheral (Hagan) Clear Urine Color Dark Yellow Dark Yellow Uretheral (Hagan) Dark Yellow OBJ DATA Labs 08/30/22 05:28 08/30/22 05:28 Labs: Abnormal Lab Results 08/30/22 08/30/22 08/30/22 05:28 05:28 05:28 RBC Hgb 9.2 L Hct 27.5 L Plt Count Immature Gran % (Auto) Schleicher # (Auto) Immature Gran # Sodium 129 L Chloride 94 L Anion Gap 5.0 L Glucose 165 H Calcium 7.5 L Phosphorus 2.3 L Direct Bilirubin 0.3 H GGT AST 84 H Lactate Dehydrogenase 362 H Total Creatine Kinase 2562 H Myoglobin 319 H Total Protein 4.9 L Albumin 2.5 L Triglycerides 152 H 08/29/22 08/29/22 08/29/22 05:31 05:31 05:31 RBC 3.06 L Hgb 9.3 L Hct 29.2 L Plt Count Immature Gran % (Auto) 1.2 H Schleicher # (Auto) 0.95 H Immature Gran # 0.12 H Sodium 130 L Chloride Anion Gap 4.0 L Glucose 264 H Calcium 7.4 L Phosphorus 1.8 L Direct Bilirubin GGT 7 L AST 98 H Lactate Dehydrogenase 359 H Total Creatine Kinase 3367 H Myoglobin 557 H Total Protein 4.7 L Albumin 2.3 L Triglycerides 08/28/22 08/28/22 08/28/22 05:51 05:51 05:51 RBC 2.28 L Hgb 7.0 L* Hct 20.9 L* Plt Count 128 L Immature Gran % (Auto) 0.8 H Schleicher # (Auto) 0.92 H Immature Gran # 0.08 H Sodium Chloride Anion Gap 4.0 L Glucose Calcium 7.1 L Phosphorus 2.1 L Direct Bilirubin GGT 6 L AST 94 H Lactate Dehydrogenase 288 H Total Creatine Kinase 3299 H Myoglobin Total Protein 4.3 L Albumin 2.1 L Triglycerides Meds: Medications Acetaminophen (Acetaminophen 325 Mg Tablet) 650 mg PO Q6HP PRN PRN Reason: fever > 101 Hydrocodone Bitart/Acetaminophen (Hydrocodone/Apap 10/325mg Tablet) 0 tab PO Q4HP PRN; Protocol PRN Reason: Per Pain Protocol Last Admin: 08/30/22 06:27 Dose: 2 tab Albuterol/Ipratropium (Ipratropium/Albuterol 3 Ml Ampul.Neb) 3 ml NEB Q4HP PRN PRN Reason: Shortness Of Breath Amlodipine Besylate (Amlodipine 5 Mg Tablet) 5 mg PO DAILY [facility] Last Admin: 08/29/22 09:23 Dose: 5 mg Apixaban (Apixaban 5 Mg Tablet) 2.5 mg PO BID [facility] Bisacodyl (Bisacodyl 10 Mg Supp.Rect) 10 mg NH Q2-3DAYS PRN PRN Reason: Constipation Diagnostic Test (Pha) (Accu-Chek 1 Each Strip) 1 each FS ACHS [facility] Last Admin: 08/30/22 07:39 Dose: 1 each Docusate Sodium (Docusate Sodium 100 Mg Capsule) 100 mg PO BID [facility] Last Admin: 08/29/22 21:11 Dose: 100 mg Fluoxetine HCl (Fluoxetine Hcl 20 Mg Capsule) 40 mg PO QAM [facility] Last Admin: 08/29/22 09:23 Dose: 40 mg Potassium Chloride 40 meq/ (Dextrose) 520 mls @ 130 mls/hr IV UD PRN PRN Reason: Potassium Level < 3 Magnesium Sulfate (Magnesium Sulfate) 2 gm in 50 mls @ 25 mls/hr IV UD PRN PRN Reason: Magnesium Level </= 1.6 Last Infusion: 08/25/22 23:02 Dose: Infused Acetaminophen (Ofirmev) 650 mg in 65 mls @ 130 mls/hr IV Q6HP PRN; Protocol PRN Reason: PAIN/FEVER > 101 Last Infusion: 08/27/22 11:15 Dose: Infused Insulin Glargine (Insulin Glargine, Human 1 Unit/0.01 Ml) 25 unit SQ DAILY [facility] Last Admin: 08/29/22 09:24 Dose: 25 unit Insulin Human Lispro (Insulin Lispro 1 Unit/0.01 Ml Unit) 0 unit SQ ACHS [facility]; Protocol Last Admin: 08/30/22 07:39 Dose: 6 units Magnesium Hydroxide (Magnesium Hydroxide 30 Ml Oral.Susp) 30 ml PO BIDP PRN PRN Reason: Constipation Last Admin: 08/29/22 16:51 Dose: 30 ml Methocarbamol (Methocarbamol 750 Mg Tablet) 750 mg PO Q6HP PRN PRN Reason: Muscle Spasm Last Admin: 08/30/22 05:02 Dose: 750 mg Morphine Sulfate (Morphine 4 Mg/Ml Vial) 0 mg IV Q1HP PRN; Protocol PRN Reason: Per Pain Protocol Last Admin: 08/30/22 06:27 Dose: 4 mg Ondansetron HCl (Ondansetron 4 Mg Odt Tablet) 4 mg SL Q4HP PRN; Protocol PRN Reason: Nausea And Vomiting Pantoprazole S[facility] ([facility]razole 40 Mg Tablet) [facility] Last Admin: 08/30/22 07:40 Dose: 40 mg Polyethylene Glycol (Polyethylene Glycol 3350 17 Gm Packet) 17 gm PO DAILYP PRN PRN Reason: Constipation Last Admin: 08/29/22 21:11 Dose: 17 gm Potassium Chloride (Potassium Chloride 20 Meq Tablet) 40 meq PO UD PRN PRN Reason: Potassium Level of 3-3.5 Potassium Chloride (Potassium Chloride 20 Meq Tablet) 40 meq PO UD PRN PRN Reason: Potassium Level < 3 Senna (Sennosides 1 Tablet) 2 tab PO DAILYP PRN PRN Reason: Constipation Last Admin: 08/29/22 09:23 Dose: 2 tab Senna (Sennosides 1 Tablet) 2 tab PO HS [facility] Last Admin: 08/29/22 21:11 Dose: 2 tab Sodium Biphosphate/Sodium Phosphate (Fleets Adult Enema) 1 dose NH Q3-4DAYS PRN PRN Reason: Constipation Throat Lozenges (Benzocaine/Menthol 1 Lozenge) 1 lozenge PO PRN PRN PRN Reason: Sore Throat A/P Narrative A/P Narrative: A: *DKA (h/o DM1): resolved -pt states he gets low BG several times per week *AG Met-Acidosis with Severe lactic acidosis: 2/2 above -improved *Fall: 2/2 likely hypoglycemic event *b/l Hip Fxs: 2/2 above, s/p ORIF (08/26) *Rhabdomyolysis: 2/2 above -cpk now decreasing *DEMARIO on CKD II: 2/2 above, improved *Acute anemia: Likely blood loss from bilateral hip fracture site hemorrhage -s/p 2prbc in ED and 2prbc preop, 2prc (08/28), no occult source of bleeding found on imaging -hgb 9.3>9.2, responded well to last transfusion *Thrombocytopenia, mild: *Leukocytosis: Likely reactive, monitor. Patient afebrile, no bandemia. resolved *Hyponatremia/Hypophos: *h/o CVA: mild residual vision impairment, no focal weakness *Depression: *HTN: *Obesity: BMI 30 P: -transitioned to SQ basal insulin & SSI, increase basal -IVF d/c -Monitor cbc -Trend renal function/monitor UOP -Monitor electrolytes and replace -f/u cpk, check myog -Dr. Rodriguez for orthopedic surgery -Continue home Norvasc, held ACEI/HCTZ initially restart as needed -hold statin, held aspirin preop -PT/OT -CM for placement need -ppx: post-op per ortho apixaban, continue SCD Time Spent With Patient Time: Total time spent is greater than 50% in coordination of care (as documented) at patient's floor/unit and/or counseling patient: Subsequent: Total time with patient: 35 - 49 minutes
[2022-08-30] MEDS: amLODIPine 5 MG TABLET PO SCH (08:50)
[2022-08-30] MEDS: DOCUSATE SODIUM 100 MG CAPSULE PO SCH (08:50)
[2022-08-30] MEDS: FLUoxetine HCL 20 MG CAPSULE PO SCH (08:50)
[2022-08-30] MEDS ORDERED: INSULIN GLARGINE, HUMAN 1 UNIT/0.01 ML SQ SCH (09:00)
[2022-08-30] MEDS ORDERED: APIXABAN 5 MG TABLET PO SCH (09:00)
== END 2022-08-30 12:05 | DRG 628 ==
LOC: ED 14:27 → ICU 18:16 → MEDSUR 08-28 13:05
PROVIDERS: ADMIT Internal Medicine; ATTEND Internal Medicine